=== PATIENT | female | born 1965 | race Caucasian/White ===

== ENCOUNTER 2017-04-19 03:34 | Inpatient (IN) | payer MEDICARE ==
[2017-04-19 04:58] LABS: Urine Drugs of Abuse Note Disclamer
[2017-04-19 05:03] LABS: Alanine Aminotransferase 171 units/L (7-56); Albumin 4.1 g/dL (3.9-5); Alkaline Phosphatase 102 units/L (35-129); Anion Gap 17 mmol/L; Bilirubin,Total < 0.20 mg/dL (0.1-1.2); Carbon Dioxide 27 mmol/L (22-30); Chloride 96.8 mmol/L (98-107); Potassium 5.8 mmol/L (3.6-5.0); Sodium 135 mmol/L (137-145)
[2017-04-19 05:11] LABS: Bacteria,Urine 1+ /HPF (Negative); Bilirubin,Urine NEG (Negative); Blood,Urine SM (Negative); Ketones,Urine NEG (Negative); Leukocyte Esterase,Urine NEG (Negative); Mucus,Urine FEW /HPF; Nitrite,Urine NEG (Negative); Urobilinogen,Urine < 2.0 mg/dL (<2.0)
[2017-04-19 05:11] LABS: Glucose 102 mg/dL (65-100)
[2017-04-19 05:50] LABS: Albumin/Globulin Ratio 1.4 %; BUN/Creatinine Ratio 46; Blood Urea Nitrogen 51 mg/dL (7-17); Calcium 8.9 mg/dL (8.4-10.2); Total Protein 6.8 g/dL (6.3-8.2)
[2017-04-19 06:02] LABS: Basophils % (Auto) 0.7 % (0.0-1.8); Eosinophils % (Auto) 0.6 % (0.0-4.3); Hematocrit 39.3 % (30.3-42.9); Hemoglobin 13.4 gm/dl (10.1-14.3); Mean Corpuscular HGB Conc 34 % (30-34); Mean Corpuscular Hemoglobin 35 pg (28-32); Mean Corpuscular Volume 103 fl (79-97); Platelet Count 164 K/mm3 (140-440); Red Blood Count 3.81 M/mm3 (3.65-5.03); Red Cell Distribution Width 11.9 % (13.2-15.2); White Blood Count 9.5 K/mm3 (4.5-11.0)
[2017-04-19] MEDS ORDERED: PROVENTIL IH ONE (06:44)
[2017-04-19] MEDS ORDERED: MAGNESIUM SULFATE 2GM/50ML 2 GM/50 ML BAG IV ONE (06:44)
[2017-04-19] MEDS ORDERED: ATROVENT IH ONE (06:44)
[2017-04-19] MEDS ORDERED: DILANTIN 1,000 MG in NACL 0.9% 250ML 250 ML IV ONE (06:44)
[2017-04-19] MEDS ORDERED: DILAUDID IV ONE (06:46)
[2017-04-19] MEDS ORDERED: ZOFRAN IV ONE (06:47)
[2017-04-19] MEDS ORDERED: CLEOCIN 600 MG/50 mL 600 MG/50 ML BAG IV ONE (06:48)
--- NOTE | 2017-04-19 07:10 | XRay Report ---
FINAL REPORT EXAM: XR CHEST 1V AP HISTORY: sob, wheeze, cp TECHNIQUE: An AP semi-erect view of the chest was obtained. There are no previous studies available for comparison. FINDINGS: The heart is oxwy-xb-gnosdgrfws enlarged. The lungs are not overtly congested. There are no localized infiltrates or effusions. There are EKG leads overlying the chest wall. The skeletal structures do not show any acute changes. There is a pacing device overlying the left chest wall with the lead directed into the left side of the neck. IMPRESSION: Cardiomegaly. No acute process in the chest.
[2017-04-19] MEDS ORDERED: DILAUDID ONE (07:17)
--- NOTE | 2017-04-19 07:58 | Emergency Department Report ---
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 Initially patient was sent for alteration in mental status. Patient is alert to self only. She thinks the year 2004 and think she is at the grocery store. She states she lives alone and has a home nurse that comes to the house does not require 24-hour care. Triage states that EMS received a call from elderly man who is assisting in her care and states that her mental status has been gradually declining. Patient complains of anterior chest pain that is intermittent, sharp, worse with breathing and palpation. Positive shortness of breath associated with wheezing. Positive dry cough. Patient reports subjective fever. Patient also noticed a red discoloration to the distal legs for several days. Severity scale (0 -10): 10 - Related Data Home Medications Medication Instructions Recorded Confirmed Last Taken Morphine TAB 15 mg PO Q12HR 07/26/15 07/26/15 Unknown Ondansetron TAB 4 mg PO Q8HR 07/26/15 07/26/15 Unknown Temazepam 15 mg PO QHS PRN 07/26/15 07/26/15 Unknown Tizanidine HCl 4 mg PO BID 07/26/15 07/26/15 Unknown Apixaban [Eliquis] 5 mg PO BID 09/13/16 10/30/16 Unknown Duloxetine HCl [Cymbalta] 60 mg PO QHS 09/13/16 10/30/16 Unknown LORazepam [Ativan] 2 mg PO TID 09/13/16 10/30/16 Unknown Lisinopril [Zestril TAB] 40 mg PO QDAY 09/13/16 10/30/16 Unknown Morphine [Morphine TAB] 30 mg PO QAM 09/13/16 10/30/16 Unknown Phenytoin [Dilantin] 300 mg PO TID 09/13/16 10/30/16 Unknown cloNIDine 0.3 mg PO TID 09/13/16 10/30/16 Unknown Tizanidine HCl [Zanaflex] 4 mg PO BID 10/30/16 10/30/16 Unknown Previous Rx's Medication Instructions Recorded Last Taken Type Budesonide [Pulmicort Respules] 0.5 mg IH Q12HRT #60 nebu 07/31/13 Unknown Rx ALBUTEROL Inhaler [ProAir HFA 2 puff IH QID PRN #1 pump 08/01/15 Unknown Rx Inhaler] Metoprolol [Lopressor] 25 mg PO BID #60 tablet 08/01/15 Unknown Rx levETIRAcetam [Keppra TAB] 500 mg PO BID #60 tablet 08/01/15 Unknown Rx Pantoprazole [Protonix TAB] 40 mg PO QDAY #30 tablet 09/16/16 Unknown Rx Furosemide [Lasix] 20 mg PO QDAY #30 tablet 11/03/16 Unknown Rx Ipratropium/Albuterol Sulfate 1 ampul IH Q6HRT #60 ampul.neb 11/03/16 Unknown Rx [DUONEB *Not for PRN Use*] Levofloxacin [Levaquin TAB] 750 mg PO DAILY #3 tablet 11/03/16 Unknown Rx Ondansetron [Zofran ODT TAB] 4 mg PO TID #30 tab.rapdis 11/03/16 Unknown Rx oxyCODONE /ACETAMINOPHEN [Percocet 1 tab PO BID #30 tablet 11/03/16 Unknown Rx 5/325 mg] predniSONE [Deltasone] 50 mg PO QDAY #5 tab 11/03/16 Unknown Rx Allergies Allergy/AdvReac Type Severity Reaction Status Date / Time amoxicillin Allergy Rash Verified 07/29/15 12:33 carbamazepine [From Tegretol] Allergy Unknown Verified 04/04/14 14:26 cucumber Allergy Unknown Verified 09/14/16 12:28 divalproex sodium Allergy Unknown Verified 04/04/14 14:26 [From Depakote] levetiracetam [From Keppra] Allergy Unknown Verified 04/04/14 14:26 nitroglycerin Allergy Unknown Verified 07/14/13 22:26 [From Nitro-Bid] NSAIDS (Non-Steroidal Allergy Vomiting Verified 07/14/13 22:27 Anti-Inflamma Penicillins Allergy Swelling Verified 07/14/13 22:26 Sulfa (Sulfonamide Allergy Rash Verified 07/29/15 12:33 Antibiotics) tramadol HCl [From Ultram] Allergy Unknown Verified 04/04/14 14:26 vancomycin Allergy Vomiting Verified 07/14/13 22:26 pickles Allergy Unknown Uncoded 09/14/16 12:27 Heart Score - HEART Score History: Slightly suspicious EKG: Normal Age: 45-65 Risk factors: > 3 risk factors or hx of atherosclerotic disease Troponin: 1-3x normal limit HEART Score: 4 ED Review of Systems ROS: Stated complaint: AMS Other details as noted in HPI Comment: All other systems reviewed and negative Other: Constitutional: No fevers chills Eyes: No eye pain visual changes ENT: No ear pain or throat pain Neck: Denies pain Respiratory:as per hpi Cardiovascular: Denies c palpitations, syncope GI: Denies abdominal pain, nausea, vomiting, diarrhea : Denies dysuria Musculoskeletal: Denies back pain, joint swelling Skin: as per hpi Neurologic: Denies headache, numbness, weakness Psychiatric: Denies suicidal ideation, hallucinations ED Past Medical Hx - Past Medical History Hx Hypertension: Yes Hx CVA: Yes (5 strokes,left-side,no assistance For ADL's) Hx Congestive Heart Failure: Yes Hx Diabetes: Yes Hx Deep Vein Thrombosis: Yes Hx Seizures: Yes Hx Asthma: Yes Hx COPD: Yes Additional medical history: Morbid Obesity,chronic pain, intubated,seizure disruptive device - Surgical History Hx Coronary Stent: Yes Hx Pacemaker: No Hx Internal Defibrillator: No Additional Surgical History: kidney, eye, tonsilectomy, seizure implant - Social History Smoking Status: Never Smoker Substance Use Type: None - Medications Home Medications: Home Medications Medication Instructions Recorded Confirmed Last Taken Type Budesonide [Pulmicort Respules] 0.5 mg IH Q12HRT #60 nebu 07/31/13 10/30/16 Unknown Rx Morphine TAB 15 mg PO Q12HR 07/26/15 07/26/15 Unknown History Ondansetron TAB 4 mg PO Q8HR 07/26/15 07/26/15 Unknown History Temazepam 15 mg PO QHS PRN 07/26/15 07/26/15 Unknown History Tizanidine HCl 4 mg PO BID 07/26/15 07/26/15 Unknown History ALBUTEROL Inhaler [ProAir HFA 2 puff IH QID PRN #1 pump 08/01/15 Unknown Rx Inhaler] Metoprolol [Lopressor] 25 mg PO BID #60 tablet 08/01/15 Unknown Rx levETIRAcetam [Keppra TAB] 500 mg PO BID #60 tablet 08/01/15 Unknown Rx Apixaban [Eliquis] 5 mg PO BID 09/13/16 10/30/16 Unknown History Duloxetine HCl [Cymbalta] 60 mg PO QHS 09/13/16 10/30/16 Unknown History LORazepam [Ativan] 2 mg PO TID 09/13/16 10/30/16 Unknown History Lisinopril [Zestril TAB] 40 mg PO QDAY 09/13/16 10/30/16 Unknown History Morphine [Morphine TAB] 30 mg PO QAM 09/13/16 10/30/16 Unknown History Phenytoin [Dilantin] 300 mg PO TID 09/13/16 10/30/16 Unknown History cloNIDine 0.3 mg PO TID 09/13/16 10/30/16 Unknown History Pantoprazole [Protonix TAB] 40 mg PO QDAY #30 tablet 09/16/16 10/30/16 Unknown Rx Tizanidine HCl [Zanaflex] 4 mg PO BID 10/30/16 10/30/16 Unknown History Furosemide [Lasix] 20 mg PO QDAY #30 tablet 11/03/16 Unknown Rx Ipratropium/Albuterol Sulfate 1 ampul IH Q6HRT #60 ampul.neb 11/03/16 Unknown Rx [DUONEB *Not for PRN Use*] Levofloxacin [Levaquin TAB] 750 mg PO DAILY #3 tablet 11/03/16 Unknown Rx Ondansetron [Zofran ODT TAB] 4 mg PO TID #30 tab.rapdis 11/03/16 Unknown Rx oxyCODONE /ACETAMINOPHEN [Percocet 1 tab PO BID #30 tablet 11/03/16 Unknown Rx 5/325 mg] predniSONE [Deltasone] 50 mg PO QDAY #5 tab 11/03/16 Unknown Rx ED Physical Exam - General Limitations: Altered Mental Status, Physical Limitation - Other Other exam information: General: No limitations, patient is alert in no acute distress Head exam: Atraumatic, normocephalic Eyes exam: Normal appearance ENT: Moist mucous membrane, normal oropharynx Neck exam: Normal inspection, full range of motion, no meningismus nontender Respiratory exam: Bilateral expiratory wheezing, sternal and anterior chest wall reproducible tenderness Cardiovascular: Normal rate and rhythm Abdomen: Soft, nondistended, and nontender, with normal bowel sounds, no rebound, or guarding Extremity: Erythema to bilateral distal legs with warm. Mild tenderness. 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 and foot dorsiflexion with mild increased weakness on the right regarding antigravity movement off the bed which is unchanged per patient Psychiatric: normal affect, normal mood Skin: Warm, dry, intact ED Course Vital Signs 04/19/17 04/19/17 04/19/17 03:38 03:40 03:45 Temperature 99.2 F Pulse Rate 94 H 91 H 87 Pulse Rate [ Bilateral Upper Lobe] Respiratory 19 20 Rate Respiratory Rate [Bilateral Upper Lobe] Blood Pressure 186/69 Blood Pressure [Right] O2 Sat by Pulse 84 91 Oximetry 04/19/17 04/19/17 04/19/17 03:50 04:00 04:24 Temperature Pulse Rate 91 H 93 H 86 Pulse Rate [ Bilateral Upper Lobe] Respiratory 17 14 15 Rate Respiratory Rate [Bilateral Upper Lobe] Blood Pressure 170/92 170/92 Blood Pressure [Right] O2 Sat by Pulse 91 90 93 Oximetry 04/19/17 04/19/17 04/19/17 04:30 04:35 04:37 Temperature 99.2 F Pulse Rate 82 87 Pulse Rate [ Bilateral Upper Lobe] Respiratory 16 20 18 Rate Respiratory Rate [Bilateral Upper Lobe] Blood Pressure 179/75 Blood Pressure 170/92 [Right] O2 Sat by Pulse 93 91 93 Oximetry 04/19/17 04/19/17 04/19/17 04:40 04:50 05:00 Temperature Pulse Rate 86 87 84 Pulse Rate [ Bilateral Upper Lobe] Respiratory 16 17 16 Rate Respiratory Rate [Bilateral Upper Lobe] Blood Pressure 192/102 203/91 203/91 Blood Pressure [Right] O2 Sat by Pulse 90 92 94 Oximetry 04/19/17 04/19/17 04/19/17 05:10 05:15 05:20 Temperature Pulse Rate 85 86 85 Pulse Rate [ Bilateral Upper Lobe] Respiratory 17 15 14 Rate Respiratory Rate [Bilateral Upper Lobe] Blood Pressure 159/90 165/91 165/91 Blood Pressure [Right] O2 Sat by Pulse 95 94 93 Oximetry 04/19/17 04/19/17 04/19/17 05:26 05:30 05:35 Temperature Pulse Rate 86 86 86 Pulse Rate [ Bilateral Upper Lobe] Respiratory 14 20 14 Rate Respiratory Rate [Bilateral Upper Lobe] Blood Pressure 165/91 165/91 Blood Pressure [Right] O2 Sat by Pulse 94 92 92 Oximetry 04/19/17 04/19/17 04/19/17 05:40 05:46 05:50 Temperature Pulse Rate 85 87 86 Pulse Rate [ Bilateral Upper Lobe] Respiratory 14 12 17 Rate Respiratory Rate [Bilateral Upper Lobe] Blood Pressure 185/81 229/90 Blood Pressure [Right] O2 Sat by Pulse 95 94 92 Oximetry 04/19/17 04/19/17 04/19/17 05:56 06:00 06:02 Temperature Pulse Rate 83 86 85 Pulse Rate [ Bilateral Upper Lobe] Respiratory 17 17 17 Rate Respiratory Rate [Bilateral Upper Lobe] Blood Pressure 229/90 119/72 131/74 Blood Pressure [Right] O2 Sat by Pulse 92 92 93 Oximetry 04/19/17 04/19/17 04/19/17 06:04 06:06 06:08 Temperature Pulse Rate 84 85 86 Pulse Rate [ Bilateral Upper Lobe] Respiratory 13 18 17 Rate Respiratory Rate [Bilateral Upper Lobe] Blood Pressure 131/74 131/74 131/74 Blood Pressure [Right] O2 Sat by Pulse 95 93 93 Oximetry 04/19/17 04/19/17 04/19/17 06:10 06:12 06:14 Temperature Pulse Rate 85 86 84 Pulse Rate [ Bilateral Upper Lobe] Respiratory 11 L 16 12 Rate Respiratory Rate [Bilateral Upper Lobe] Blood Pressure 131/74 131/74 131/74 Blood Pressure [Right] O2 Sat by Pulse 95 94 94 Oximetry 04/19/17 04/19/17 04/19/17 06:16 06:18 06:20 Temperature Pulse Rate 85 85 82 Pulse Rate [ Bilateral Upper Lobe] Respiratory 13 21 17 Rate Respiratory Rate [Bilateral Upper Lobe] Blood Pressure 131/74 131/74 131/74 Blood Pressure [Right] O2 Sat by Pulse 94 95 93 Oximetry 04/19/17 04/19/17 04/19/17 06:22 06:24 06:26 Temperature Pulse Rate 83 85 83 Pulse Rate [ Bilateral Upper Lobe] Respiratory 16 12 15 Rate Respiratory Rate [Bilateral Upper Lobe] Blood Pressure 148/73 148/73 148/73 Blood Pressure [Right] O2 Sat by Pulse 94 93 93 Oximetry 04/19/17 04/19/17 07:13 07:25 Temperature Pulse Rate Pulse Rate [ 85 88 Bilateral Upper Lobe] Respiratory Rate Respiratory 18 18 Rate [Bilateral Upper Lobe] Blood Pressure Blood Pressure [Right] O2 Sat by Pulse Oximetry - Reevaluation(s) Reevaluation #1: 04/19/17 08:02 Meds in the ED: Albuterol 10, Ativan 1, Solu-Medrol, magnesium, Dilaudid and Zofran for pain and nausea, clindamycin for cellulitis and Dilantin for subtherapeutic level - ABG Interpretation Ph: 7.34 PCO2: 58 PO2: 65 Bicarbonate: 31 Additional Comments: Compensated respiratory acidosis and hypoxia SUMAN score - Suman Score Age > 65: (0) No Aspirin use within the Past 7 Days: (1) Yes 3 or more CAD Risk Factors: (1) Yes 2 or more Angina events in past 24 hrs: (1) Yes Known CAD with more than 50% Stenosis: (0) No Elevated Cardiac Markers: (1) Yes ST Deviation Greater than 0.5mm: (0) No SUMAN Score: 4 ED Medical Decision Making - Lab Data Result diagrams: 04/19/17 05:27 04/19/17 07:25 Lab Results 04/19/17 04/19/17 04/19/17 Range/Units 04:35 04:37 04:37 WBC (4.5-11.0) K/mm3 RBC (3.65-5.03) M/mm3 Hgb (10.1-14.3) gm/dl Hct (30.3-42.9) % MCV (79-97) fl MCH (28-32) pg MCHC (30-34) % RDW (13.2-15.2) % Plt Count (140-440) K/mm3 Lymph % (Auto) (13.4-35.0) % [place] % (Auto) (0.0-7.3) % Eos % (Auto) (0.0-4.3) % Baso % (Auto) (0.0-1.8) % Lymph # (1.2-5.4) K/mm3 [place] # (0.0-0.8) K/mm3 Eos # (0.0-0.4) K/mm3 Baso # (0.0-0.1) K/mm3 Seg Neutrophils % (40.0-70.0) % Seg Neutrophils # (1.8-7.7) K/mm3 PT (12.2-14.9) Sec. INR (0.87-1.13) APTT (24.2-36.6) Sec. POC ABG pH (7.35-7.45) POC ABG pCO2 (35-45) POC ABG pO2 (80-105) POC ABG HCO3 POC ABG Total CO2 POC ABG O2 Sat POC ABG Base Excess FiO2 % Sodium (137-145) mmol/L Potassium (3.6-5.0) mmol/L Chloride (98-107) mmol/L Carbon Dioxide (22-30) mmol/L Anion Gap mmol/L BUN (7-17) mg/dL Creatinine (0.7-1.2) mg/dL Estimated GFR ml/min BUN/Creatinine Ratio % Glucose (65-100) mg/dL POC Glucose 93 (70-105) Lactic Acid (0.7-2.0) mmol/L Calcium (8.4-10.2) mg/dL Magnesium (1.7-2.3) mg/dL Total Bilirubin (0.1-1.2) mg/dL AST (5-40) units/L ALT (7-56) units/L Alkaline Phosphatase (35-129) units/L Ammonia (25-60) umol/L Total Creatine Kinase (30-135) units/L CK-MB (CK-2) (0.0-4.0) ng/mL CK-MB (CK-2) Rel Index (0-4) Troponin T (0.00-0.029) ng/mL Total Protein (6.3-8.2) g/dL Albumin (3.9-5) g/dL Albumin/Globulin Ratio % Triglycerides (2-149) mg/dL Cholesterol (50-199) mg/dL LDL Cholesterol Direct HDL Cholesterol (40-59) mg/dL Cholesterol/HDL Ratio % TSH (0.270-4.200) mlU/mL Urine Color Yellow (Yellow) Urine Turbidity Clear (Clear) Urine pH 5.0 (5.0-7.0) Ur Specific [place] 1.020 (1.003-1.030) Urine Protein 100 mg/dl (Negative) mg/dL Urine Glucose (UA) Neg (Negative) mg/dL Urine Ketones Neg (Negative) mg/dL Urine Blood Sm (Negative) Urine Nitrite Neg (Negative) Urine Bilirubin Neg (Negative) Urine Urobilinogen < 2.0 (<2.0) mg/dL Ur Leukocyte Esterase Neg (Negative) Urine WBC (Auto) 2.0 (0.0-6.0) /HPF Urine RBC (Auto) 1.0 (0.0-6.0) /HPF U Epithel Cells (Auto) < 1.0 (0-13.0) /HPF Urine Bacteria (Auto) 1+ (Negative) /HPF Urine Mucus Few /HPF Salicylates (2.8-20.0) mg/dL Urine Opiates Screen Presumptive positive Urine Methadone Screen Presumptive negative Acetaminophen (10.0-30.0) ug/mL Ur Barbiturates Screen Presumptive negative Phenytoin (10.0-20.0) ug/mL Ur Phencyclidine Scrn Presumptive negative Ur Amphetamines Screen Presumptive negative U Benzodiazepines Scrn Presumptive negative Urine Cocaine Screen Presumptive negative U Marijuana (THC) Screen Presumptive negative Drugs of Abuse Note Disclamer Plasma/Serum Alcohol (0-0.07) gm% 04/19/17 04/19/17 04/19/17 Range/Units 04:41 05:27 05:27 WBC 9.5 (4.5-11.0) K/mm3 RBC 3.81 (3.65-5.03) M/mm3 Hgb 13.4 (10.1-14.3) gm/dl Hct 39.3 (30.3-42.9) % MCV 103 H (79-97) fl MCH 35 H (28-32) pg MCHC 34 (30-34) % RDW 11.9 L (13.2-15.2) % Plt Count 164 (140-440) K/mm3 Lymph % (Auto) 20.3 (13.4-35.0) % [place] % (Auto) 6.3 (0.0-7.3) % Eos % (Auto) 0.6 (0.0-4.3) % Baso % (Auto) 0.7 (0.0-1.8) % Lymph # 1.9 (1.2-5.4) K/mm3 [place] # 0.6 (0.0-0.8) K/mm3 Eos # 0.1 (0.0-0.4) K/mm3 Baso # 0.1 (0.0-0.1) K/mm3 Seg Neutrophils % 72.1 H (40.0-70.0) % Seg Neutrophils # 6.8 (1.8-7.7) K/mm3 PT (12.2-14.9) Sec. INR (0.87-1.13) APTT (24.2-36.6) Sec. POC ABG pH (7.35-7.45) POC ABG pCO2 (35-45) POC ABG pO2 (80-105) POC ABG HCO3 POC ABG Total CO2 POC ABG O2 Sat POC ABG Base Excess FiO2 % Sodium 135 L (137-145) mmol/L Potassium 5.8 H (3.6-5.0) mmol/L Chloride 96.8 L (98-107) mmol/L Carbon Dioxide 27 (22-30) mmol/L Anion Gap 17 mmol/L BUN 51 H (7-17) mg/dL Creatinine < 0.2 L (0.7-1.2) mg/dL Estimated GFR > 60 ml/min BUN/Creatinine Ratio 46 % Glucose 102 H (65-100) mg/dL POC Glucose (70-105) Lactic Acid 0.90 (0.7-2.0) mmol/L Calcium 8.9 (8.4-10.2) mg/dL Magnesium 2.00 (1.7-2.3) mg/dL Total Bilirubin < 0.20 (0.1-1.2) mg/dL AST 262 H (5-40) units/L ALT 171 H (7-56) units/L Alkaline Phosphatase 102 (35-129) units/L Ammonia (25-60) umol/L Total Creatine Kinase (30-135) units/L CK-MB (CK-2) (0.0-4.0) ng/mL CK-MB (CK-2) Rel Index (0-4) Troponin T (0.00-0.029) ng/mL Total Protein 6.8 (6.3-8.2) g/dL Albumin 4.1 (3.9-5) g/dL Albumin/Globulin Ratio 1.4 % Triglycerides (2-149) mg/dL Cholesterol (50-199) mg/dL LDL Cholesterol Direct HDL Cholesterol (40-59) mg/dL Cholesterol/HDL Ratio % TSH (0.270-4.200) mlU/mL Urine Color (Yellow) Urine Turbidity (Clear) Urine pH (5.0-7.0) Ur Specific [place] (1.003-1.030) Urine Protein (Negative) mg/dL Urine Glucose (UA) (Negative) mg/dL Urine Ketones (Negative) mg/dL Urine Blood (Negative) Urine Nitrite (Negative) Urine Bilirubin (Negative) Urine Urobilinogen (<2.0) mg/dL Ur Leukocyte Esterase (Negative) Urine WBC (Auto) (0.0-6.0) /HPF Urine RBC (Auto) (0.0-6.0) /HPF U Epithel Cells (Auto) (0-13.0) /HPF Urine Bacteria (Auto) (Negative) /HPF Urine Mucus /HPF Salicylates (2.8-20.0) mg/dL Urine Opiates Screen Urine Methadone Screen Acetaminophen (10.0-30.0) ug/mL Ur Barbiturates Screen Phenytoin (10.0-20.0) ug/mL Ur Phencyclidine Scrn Ur Amphetamines Screen U Benzodiazepines Scrn Urine Cocaine Screen U Marijuana (THC) Screen Drugs of Abuse Note Plasma/Serum Alcohol (0-0.07) gm% 04/19/17 04/19/17 04/19/17 Range/Units 05:27 05:27 05:27 WBC (4.5-11.0) K/mm3 RBC (3.65-5.03) M/mm3 Hgb (10.1-14.3) gm/dl Hct (30.3-42.9) % MCV (79-97) fl MCH (28-32) pg MCHC (30-34) % RDW (13.2-15.2) % Plt Count (140-440) K/mm3 Lymph % (Auto) (13.4-35.0) % [place] % (Auto) (0.0-7.3) % Eos % (Auto) (0.0-4.3) % Baso % (Auto) (0.0-1.8) % Lymph # (1.2-5.4) K/mm3 [place] # (0.0-0.8) K/mm3 Eos # (0.0-0.4) K/mm3 Baso # (0.0-0.1) K/mm3 Seg Neutrophils % (40.0-70.0) % Seg Neutrophils # (1.8-7.7) K/mm3 PT (12.2-14.9) Sec. INR (0.87-1.13) APTT (24.2-36.6) Sec. POC ABG pH (7.35-7.45) POC ABG pCO2 (35-45) POC ABG pO2 (80-105) POC ABG HCO3 POC ABG Total CO2 POC ABG O2 Sat POC ABG Base Excess FiO2 % Sodium (137-145) mmol/L Potassium (3.6-5.0) mmol/L Chloride (98-107) mmol/L Carbon Dioxide (22-30) mmol/L Anion Gap mmol/L BUN (7-17) mg/dL Creatinine (0.7-1.2) mg/dL Estimated GFR ml/min BUN/Creatinine Ratio % Glucose (65-100) mg/dL POC Glucose (70-105) Lactic Acid (0.7-2.0) mmol/L Calcium (8.4-10.2) mg/dL Magnesium (1.7-2.3) mg/dL Total Bilirubin (0.1-1.2) mg/dL AST (5-40) units/L ALT (7-56) units/L Alkaline Phosphatase (35-129) units/L Ammonia (25-60) umol/L Total Creatine Kinase (30-135) units/L CK-MB (CK-2) (0.0-4.0) ng/mL CK-MB (CK-2) Rel Index (0-4) Troponin T (0.00-0.029) ng/mL Total Protein (6.3-8.2) g/dL Albumin (3.9-5) g/dL Albumin/Globulin Ratio % Triglycerides (2-149) mg/dL Cholesterol (50-199) mg/dL LDL Cholesterol Direct HDL Cholesterol (40-59) mg/dL Cholesterol/HDL Ratio % TSH 0.733 (0.270-4.200) mlU/mL Urine Color (Yellow) Urine Turbidity (Clear) Urine pH (5.0-7.0) Ur Specific [place] (1.003-1.030) Urine Protein (Negative) mg/dL Urine Glucose (UA) (Negative) mg/dL Urine Ketones (Negative) mg/dL Urine Blood (Negative) Urine Nitrite (Negative) Urine Bilirubin (Negative) Urine Urobilinogen (<2.0) mg/dL Ur Leukocyte Esterase (Negative) Urine WBC (Auto) (0.0-6.0) /HPF Urine RBC (Auto) (0.0-6.0) /HPF U Epithel Cells (Auto) (0-13.0) /HPF Urine Bacteria (Auto) (Negative) /HPF Urine Mucus /HPF Salicylates < 0.3 L (2.8-20.0) mg/dL Urine Opiates Screen Urine Methadone Screen Acetaminophen < 15.0 (10.0-30.0) ug/mL Ur Barbiturates Screen Phenytoin (10.0-20.0) ug/mL Ur Phencyclidine Scrn Ur Amphetamines Screen U Benzodiazepines Scrn Urine Cocaine Screen U Marijuana (THC) Screen Drugs of Abuse Note Plasma/Serum Alcohol (0-0.07) gm% 04/19/17 04/19/17 04/19/17 Range/Units 05:27 05:27 07:01 WBC (4.5-11.0) K/mm3 RBC (3.65-5.03) M/mm3 Hgb (10.1-14.3) gm/dl Hct (30.3-42.9) % MCV (79-97) fl MCH (28-32) pg MCHC (30-34) % RDW (13.2-15.2) % Plt Count (140-440) K/mm3 Lymph % (Auto) (13.4-35.0) % [place] % (Auto) (0.0-7.3) % Eos % (Auto) (0.0-4.3) % Baso % (Auto) (0.0-1.8) % Lymph # (1.2-5.4) K/mm3 [place] # (0.0-0.8) K/mm3 Eos # (0.0-0.4) K/mm3 Baso # (0.0-0.1) K/mm3 Seg Neutrophils % (40.0-70.0) % Seg Neutrophils # (1.8-7.7) K/mm3 PT (12.2-14.9) Sec. INR (0.87-1.13) APTT (24.2-36.6) Sec. POC ABG pH (7.35-7.45) POC ABG pCO2 (35-45) POC ABG pO2 (80-105) POC ABG HCO3 POC ABG Total CO2 POC ABG O2 Sat POC ABG Base Excess FiO2 % Sodium (137-145) mmol/L Potassium (3.6-5.0) mmol/L Chloride (98-107) mmol/L Carbon Dioxide (22-30) mmol/L Anion Gap mmol/L BUN (7-17) mg/dL Creatinine (0.7-1.2) mg/dL Estimated GFR ml/min BUN/Creatinine Ratio % Glucose (65-100) mg/dL POC Glucose (70-105) Lactic Acid 0.90 (0.7-2.0) mmol/L Calcium (8.4-10.2) mg/dL Magnesium (1.7-2.3) mg/dL Total Bilirubin (0.1-1.2) mg/dL AST (5-40) units/L ALT (7-56) units/L Alkaline Phosphatase (35-129) units/L Ammonia (25-60) umol/L Total Creatine Kinase (30-135) units/L CK-MB (CK-2) (0.0-4.0) ng/mL CK-MB (CK-2) Rel Index (0-4) Troponin T (0.00-0.029) ng/mL Total Protein (6.3-8.2) g/dL Albumin (3.9-5) g/dL Albumin/Globulin Ratio % Triglycerides (2-149) mg/dL Cholesterol (50-199) mg/dL LDL Cholesterol Direct HDL Cholesterol (40-59) mg/dL Cholesterol/HDL Ratio % TSH (0.270-4.200) mlU/mL Urine Color (Yellow) Urine Turbidity (Clear) Urine pH (5.0-7.0) Ur Specific [place] (1.003-1.030) Urine Protein (Negative) mg/dL Urine Glucose (UA) (Negative) mg/dL Urine Ketones (Negative) mg/dL Urine Blood (Negative) Urine Nitrite (Negative) Urine Bilirubin (Negative) Urine Urobilinogen (<2.0) mg/dL Ur Leukocyte Esterase (Negative) Urine WBC (Auto) (0.0-6.0) /HPF Urine RBC (Auto) (0.0-6.0) /HPF U Epithel Cells (Auto) (0-13.0) /HPF Urine Bacteria (Auto) (Negative) /HPF Urine Mucus /HPF Salicylates (2.8-20.0) mg/dL Urine Opiates Screen Urine Methadone Screen Acetaminophen (10.0-30.0) ug/mL Ur Barbiturates Screen Phenytoin 1.6 L (10.0-20.0) ug/mL Ur Phencyclidine Scrn Ur Amphetamines Screen U Benzodiazepines Scrn Urine Cocaine Screen U Marijuana (THC) Screen Drugs of Abuse Note Plasma/Serum Alcohol < 0.01 (0-0.07) gm% 04/19/17 04/19/17 04/19/17 Range/Units 07:01 07:01 07:25 WBC (4.5-11.0) K/mm3 RBC (3.65-5.03) M/mm3 Hgb (10.1-14.3) gm/dl Hct (30.3-42.9) % MCV (79-97) fl MCH (28-32) pg MCHC (30-34) % RDW (13.2-15.2) % Plt Count (140-440) K/mm3 Lymph % (Auto) (13.4-35.0) % [place] % (Auto) (0.0-7.3) % Eos % (Auto) (0.0-4.3) % Baso % (Auto) (0.0-1.8) % Lymph # (1.2-5.4) K/mm3 [place] # (0.0-0.8) K/mm3 Eos # (0.0-0.4) K/mm3 Baso # (0.0-0.1) K/mm3 Seg Neutrophils % (40.0-70.0) % Seg Neutrophils # (1.8-7.7) K/mm3 PT (12.2-14.9) Sec. INR (0.87-1.13) APTT (24.2-36.6) Sec. POC ABG pH (7.35-7.45) POC ABG pCO2 (35-45) POC ABG pO2 (80-105) POC ABG HCO3 POC ABG Total CO2 POC ABG O2 Sat POC ABG Base Excess FiO2 % Sodium (137-145) mmol/L Potassium 5.5 H (3.6-5.0) mmol/L Chloride (98-107) mmol/L Carbon Dioxide (22-30) mmol/L Anion Gap mmol/L BUN (7-17) mg/dL Creatinine (0.7-1.2) mg/dL Estimated GFR ml/min BUN/Creatinine Ratio % Glucose (65-100) mg/dL POC Glucose (70-105) Lactic Acid (0.7-2.0) mmol/L Calcium (8.4-10.2) mg/dL Magnesium (1.7-2.3) mg/dL Total Bilirubin (0.1-1.2) mg/dL AST (5-40) units/L ALT (7-56) units/L Alkaline Phosphatase (35-129) units/L Ammonia 51.0 (25-60) umol/L Total Creatine Kinase 117 (30-135) units/L CK-MB (CK-2) 4.5 H (0.0-4.0) ng/mL CK-MB (CK-2) Rel Index 3.8 (0-4) Troponin T 0.030 H (0.00-0.029) ng/mL Total Protein (6.3-8.2) g/dL Albumin (3.9-5) g/dL Albumin/Globulin Ratio % Triglycerides 402 H (2-149) mg/dL Cholesterol 183 (50-199) mg/dL LDL Cholesterol Direct TNR HDL Cholesterol 39 L (40-59) mg/dL Cholesterol/HDL Ratio 4.69 % TSH (0.270-4.200) mlU/mL Urine Color (Yellow) Urine Turbidity (Clear) Urine pH (5.0-7.0) Ur Specific [place] (1.003-1.030) Urine Protein (Negative) mg/dL Urine Glucose (UA) (Negative) mg/dL Urine Ketones (Negative) mg/dL Urine Blood (Negative) Urine Nitrite (Negative) Urine Bilirubin (Negative) Urine Urobilinogen (<2.0) mg/dL Ur Leukocyte Esterase (Negative) Urine WBC (Auto) (0.0-6.0) /HPF Urine RBC (Auto) (0.0-6.0) /HPF U Epithel Cells (Auto) (0-13.0) /HPF Urine Bacteria (Auto) (Negative) /HPF Urine Mucus /HPF Salicylates (2.8-20.0) mg/dL Urine Opiates Screen Urine Methadone Screen Acetaminophen (10.0-30.0) ug/mL Ur Barbiturates Screen Phenytoin (10.0-20.0) ug/mL Ur Phencyclidine Scrn Ur Amphetamines Screen U Benzodiazepines Scrn Urine Cocaine Screen U Marijuana (THC) Screen Drugs of Abuse Note Plasma/Serum Alcohol (0-0.07) gm% 04/19/17 04/19/17 Range/Units 07:38 08:26 WBC (4.5-11.0) K/mm3 RBC (3.65-5.03) M/mm3 Hgb (10.1-14.3) gm/dl Hct (30.3-42.9) % MCV (79-97) fl MCH (28-32) pg MCHC (30-34) % RDW (13.2-15.2) % Plt Count (140-440) K/mm3 Lymph % (Auto) (13.4-35.0) % [place] % (Auto) (0.0-7.3) % Eos % (Auto) (0.0-4.3) % Baso % (Auto) (0.0-1.8) % Lymph # (1.2-5.4) K/mm3 [place] # (0.0-0.8) K/mm3 Eos # (0.0-0.4) K/mm3 Baso # (0.0-0.1) K/mm3 Seg Neutrophils % (40.0-70.0) % Seg Neutrophils # (1.8-7.7) K/mm3 PT 15.1 H (12.2-14.9) Sec. INR 1.13 (0.87-1.13) APTT 26.8 (24.2-36.6) Sec. POC ABG pH 7.340 L (7.35-7.45) POC ABG pCO2 58.5 H (35-45) POC ABG pO2 65 L (80-105) POC ABG HCO3 31.6 POC ABG Total CO2 33 POC ABG O2 Sat 90 POC ABG Base Excess 6 FiO2 28 % Sodium (137-145) mmol/L Potassium (3.6-5.0) mmol/L Chloride (98-107) mmol/L Carbon Dioxide (22-30) mmol/L Anion Gap mmol/L BUN (7-17) mg/dL Creatinine (0.7-1.2) mg/dL Estimated GFR ml/min BUN/Creatinine Ratio % Glucose (65-100) mg/dL POC Glucose (70-105) Lactic Acid (0.7-2.0) mmol/L Calcium (8.4-10.2) mg/dL Magnesium (1.7-2.3) mg/dL Total Bilirubin (0.1-1.2) mg/dL AST (5-40) units/L ALT (7-56) units/L Alkaline Phosphatase (35-129) units/L Ammonia (25-60) umol/L Total Creatine Kinase (30-135) units/L CK-MB (CK-2) (0.0-4.0) ng/mL CK-MB (CK-2) Rel Index (0-4) Troponin T (0.00-0.029) ng/mL Total Protein (6.3-8.2) g/dL Albumin (3.9-5) g/dL Albumin/Globulin Ratio % Triglycerides (2-149) mg/dL Cholesterol (50-199) mg/dL LDL Cholesterol Direct HDL Cholesterol (40-59) mg/dL Cholesterol/HDL Ratio % TSH (0.270-4.200) mlU/mL Urine Color (Yellow) Urine Turbidity (Clear) Urine pH (5.0-7.0) Ur Specific [place] (1.003-1.030) Urine Protein (Negative) mg/dL Urine Glucose (UA) (Negative) mg/dL Urine Ketones (Negative) mg/dL Urine Blood (Negative) Urine Nitrite (Negative) Urine Bilirubin (Negative) Urine Urobilinogen (<2.0) mg/dL Ur Leukocyte Esterase (Negative) Urine WBC (Auto) (0.0-6.0) /HPF Urine RBC (Auto) (0.0-6.0) /HPF U Epithel Cells (Auto) (0-13.0) /HPF Urine Bacteria (Auto) (Negative) /HPF Urine Mucus /HPF Salicylates (2.8-20.0) mg/dL Urine Opiates Screen Urine Methadone Screen Acetaminophen (10.0-30.0) ug/mL Ur Barbiturates Screen Phenytoin (10.0-20.0) ug/mL Ur Phencyclidine Scrn Ur Amphetamines Screen U Benzodiazepines Scrn Urine Cocaine Screen U Marijuana (THC) Screen Drugs of Abuse Note Plasma/Serum Alcohol (0-0.07) gm% - EKG Data -: EKG Interpreted by Me (artifact, sinus underlying rhythm suspect) EKG shows normal: sinus rhythm, axis (-5), QRS complexes (95), ST-T waves (no stemi/t inv) Rate: normal (87) - EKG Data When compared to previous EKG there are: no significant change - Radiology Data Radiology results: report reviewed (read by radiologist: cxr: naf cmg) - Medical Decision Making Other differential cellulitis, venous stasis dermatitis Plans admit patient to hospital for chest pain and COPD exacerbation. repeat K 5.5 (albuterol only hyperkalemic med treatment initiated) - Differential Diagnosis mi, costochondritis, unstable angina, PE, CHF, pneumonia, bronchitis, cellu Critical Care Time: No Critical care attestation.: If time is entered above; I have spent that time in minutes in the direct care of this critically ill patient, excluding procedure time. ED Disposition Clinical Impression: COPD exacerbation, Chest pain, Elevated troponin, Hyperkalemia, assisted current use of anticoagulant, Cellulitis, leg, Elevated LFTs Disposition: OP ADMIT IP TO THIS HOSP Is pt being admited?: Yes Condition: Stable Time of Disposition: 08:56 (Hospitalist/[place])
[2017-04-19 08:02] LABS: INR 1.13 (0.87-1.13)
[2017-04-19 08:03] LABS: Partial Thromboplastin Time 26.8 Sec. (24.2-36.6)
[2017-04-19 08:05] LABS: Creatine Kinase MB 4.5 ng/mL (0.0-4.0)
[2017-04-19 08:06] LABS: Potassium 5.5 mmol/L (3.6-5.0)
[2017-04-19 08:15] LABS: Cholesterol 183 mg/dL (50-199); HDL Cholesterol 39 mg/dL (40-59); LDL Cholesterol,Direct TNR mg/dL (50-130); Triglycerides 402 mg/dL (2-149)
[2017-04-19 08:27] LABS: ISTAT Base Excess 6; ISTAT HCO3 31.6; ISTAT PCO2 58.5 (35-45); ISTAT PO2 65 (80-105); ISTAT SO2 90; ISTAT TCO2 33
--- NOTE | 2017-04-19 09:14 | History and Physical Report ---
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 Patient alert to self; therefore unable to provide detail history. Patient complains difficulty of breathing this morning; she told me that her roommate called 911 and brought her to the Emergency Department. Patient also noticed a red discoloration to the distal legs for several days with pain. She is on oxygen at home. Patient denies she has had no fevers, chills, or night sweats. No hx of recurrent pneumonia. He has no sick contact, TB exposure. Patient denies chest pain Past History Past Medical History: CAD ( with stent), COPD ( O2 dependence), diabetes, heart failure, hypertension, seizures, other Past Surgical History: No surgical history Social history: denies: smoking, alcohol abuse, prescription drug abuse Family history: denies: hypertension Medications and Allergies Allergies Allergy/AdvReac Type Severity Reaction Status Date / Time amoxicillin Allergy Rash Verified 07/29/15 12:33 carbamazepine [From Tegretol] Allergy Unknown Verified 04/04/14 14:26 cucumber Allergy Unknown Verified 09/14/16 12:28 divalproex sodium Allergy Unknown Verified 04/04/14 14:26 [From Depakote] levetiracetam [From Keppra] Allergy Unknown Verified 04/04/14 14:26 nitroglycerin Allergy Unknown Verified 07/14/13 22:26 [From Nitro-Bid] NSAIDS (Non-Steroidal Allergy Vomiting Verified 07/14/13 22:27 Anti-Inflamma Penicillins Allergy Swelling Verified 07/14/13 22:26 Sulfa (Sulfonamide Allergy Rash Verified 07/29/15 12:33 Antibiotics) tramadol HCl [From Ultram] Allergy Unknown Verified 04/04/14 14:26 vancomycin Allergy Vomiting Verified 07/14/13 22:26 pickles Allergy Unknown Uncoded 09/14/16 12:27 Home Medications Medication Instructions Recorded Confirmed Last Taken Type Apixaban [Eliquis] 5 mg PO BID 09/13/16 04/19/17 Unknown History Duloxetine HCl [Cymbalta] 60 mg PO QHS 09/13/16 04/19/17 Unknown History Ondansetron [Zofran ODT TAB] 4 mg PO TID #30 tab.rapdis 11/03/16 04/19/17 Unknown Rx Clonidine HCl [Catapres] 0.3 mg PO TID 04/19/17 04/19/17 Unknown History LORazepam [Ativan] 2 mg PO QID PRN 04/19/17 04/19/17 Unknown History Lisinopril [Zestril] 40 mg PO QDAY 04/19/17 04/19/17 Unknown History Mirtazapine [Remeron] 30 mg PO DAILY 04/19/17 04/19/17 Unknown History Morphine Sulfate [Morphabond ER] 15 mg PO Q12H 04/19/17 04/19/17 Unknown History Oxycodone HCl/Acetaminophen 1 each PO BID PRN 04/19/17 04/19/17 Unknown History [Percocet 10/325 mg] Phenytoin Sodium Extended 100 mg PO TID 04/19/17 04/19/17 Unknown History [Dilantin] Review of Systems Constitutional: no weight loss, no weight gain, no fever Ears, nose, mouth and throat: no tinnitis, no decreased hearing, no nose pain, no nasal congestion Cardiovascular: lightheadedness, shortness of breath, dyspnea on exertion, no orthopnea Respiratory: shortness of breath, dyspnea on exertion Gastrointestinal: no nausea, no vomiting Genitourinary Female: no menorrhagia, no dysuria, no urinary frequency, no urgency Rectal: no incontinence, no bleeding Musculoskeletal: no shooting arm pain, no arm numbness/tingling, no low back pain Integumentary: no rash, no pruritis, no redness Neurological: no transient paralysis, no paralysis, no weakness, no parathesias Psychiatric: no change in sleep habits, no sleep disturbances, no insomnia Endocrine: no cold intolerance, no heat intolerance, no polyphagia, no excessive thirst Hematologic/Lymphatic: no easy bruising, no easy bleeding Allergic/Immunologic: no urticaria, no allergic rhinitis Exam - Constitutional Vitals: Temp Pulse Resp BP Pulse Ox 99.2 F 88 18 148/73 93 04/19/17 04:35 04/19/17 07:25 04/19/17 07:25 04/19/17 06:26 04/19/17 06:26 General appearance: Present: no acute distress - EENT Eyes: Present: PERRL ENT: hearing intact - Neck Neck: Present: supple - Respiratory Respiratory effort: normal Respiratory: bilateral: wheezing - Cardiovascular Rhythm: regular Heart Sounds: Present: S1 & S2 - Extremities Extremities: no ischemia Extremity abnormal: other (LE erythema) - Abdominal General gastrointestinal: Present: soft, non-tender - Rectal Rectal Exam: deferred - Integumentary Integumentary: Present: clear (bilateral LE erythema) - Musculoskeletal Musculoskeletal: strength equal bilaterally - Psychiatric Psychiatric: appropriate mood/affect - Neurologic Neurologic: moves all extremities - Allied Health Allied health notes reviewed: nursing Results - Labs CBC & Chem 7: 04/19/17 05:27 04/19/17 07:25 Labs: Laboratory Last Values WBC 9.5 K/mm3 (4.5-11.0) 04/19/17 05:27 RBC 3.81 M/mm3 (3.65-5.03) 04/19/17 05:27 Hgb 13.4 gm/dl (10.1-14.3) 04/19/17 05:27 Hct 39.3 % (30.3-42.9) 04/19/17 05:27 MCV 103 fl (79-97) H 04/19/17 05:27 MCH 35 pg (28-32) H 04/19/17 05:27 MCHC 34 % (30-34) 04/19/17 05:27 RDW 11.9 % (13.2-15.2) L 04/19/17 05:27 Plt Count 164 K/mm3 (140-440) 04/19/17 05:27 Lymph % (Auto) 20.3 % (13.4-35.0) 04/19/17 05:27 [place] % (Auto) 6.3 % (0.0-7.3) 04/19/17 05:27 Eos % (Auto) 0.6 % (0.0-4.3) 04/19/17 05:27 Baso % (Auto) 0.7 % (0.0-1.8) 04/19/17 05:27 Lymph # 1.9 K/mm3 (1.2-5.4) 04/19/17 05:27 [place] # 0.6 K/mm3 (0.0-0.8) 04/19/17 05:27 Eos # 0.1 K/mm3 (0.0-0.4) 04/19/17 05:27 Baso # 0.1 K/mm3 (0.0-0.1) 04/19/17 05:27 Seg Neutrophils % 72.1 % (40.0-70.0) H 04/19/17 05:27 Seg Neutrophils # 6.8 K/mm3 (1.8-7.7) 04/19/17 05:27 PT 15.1 Sec. (12.2-14.9) H 04/19/17 07:38 INR 1.13 (0.87-1.13) 04/19/17 07:38 APTT 26.8 Sec. (24.2-36.6) 04/19/17 07:38 POC ABG pH 7.340 (7.35-7.45) L 04/19/17 08:26 POC ABG pCO2 58.5 (35-45) H 04/19/17 08:26 POC ABG pO2 65 (80-105) L 04/19/17 08:26 POC ABG HCO3 31.6 04/19/17 08:26 POC ABG Total CO2 33 04/19/17 08:26 POC ABG O2 Sat 90 04/19/17 08:26 POC ABG Base Excess 6 04/19/17 08:26 FiO2 28 % 04/19/17 08:26 Sodium 135 mmol/L (137-145) L 04/19/17 04:41 Potassium 5.5 mmol/L (3.6-5.0) H 04/19/17 07:25 Chloride 96.8 mmol/L (98-107) L 04/19/17 04:41 Carbon Dioxide 27 mmol/L (22-30) 04/19/17 04:41 Anion Gap 17 mmol/L 04/19/17 04:41 BUN 51 mg/dL (7-17) H 04/19/17 04:41 Creatinine < 0.2 mg/dL (0.7-1.2) L 04/19/17 04:41 Estimated GFR > 60 ml/min 04/19/17 04:41 BUN/Creatinine Ratio 46 % 04/19/17 04:41 Glucose 102 mg/dL (65-100) H 04/19/17 04:41 POC Glucose 93 (70-105) 04/19/17 04:35 Lactic Acid 0.90 mmol/L (0.7-2.0) 04/19/17 07:01 Calcium 8.9 mg/dL (8.4-10.2) 04/19/17 04:41 Magnesium 2.00 mg/dL (1.7-2.3) 04/19/17 04:41 Total Bilirubin < 0.20 mg/dL (0.1-1.2) 04/19/17 04:41 AST 262 units/L (5-40) H 04/19/17 04:41 ALT 171 units/L (7-56) H 04/19/17 04:41 Alkaline Phosphatase 102 units/L (35-129) 04/19/17 04:41 Ammonia 51.0 umol/L (25-60) 04/19/17 07:01 Total Creatine Kinase 117 units/L (30-135) 04/19/17 07:25 CK-MB (CK-2) 4.5 ng/mL (0.0-4.0) H 04/19/17 07:25 CK-MB (CK-2) Rel Index 3.8 (0-4) 04/19/17 07:25 Troponin T 0.030 ng/mL (0.00-0.029) H 04/19/17 07:01 Total Protein 6.8 g/dL (6.3-8.2) 04/19/17 04:41 Albumin 4.1 g/dL (3.9-5) 04/19/17 04:41 Albumin/Globulin Ratio 1.4 % 04/19/17 04:41 Triglycerides 402 mg/dL (2-149) H 04/19/17 07:01 Cholesterol 183 mg/dL (50-199) 04/19/17 07:01 LDL Cholesterol Direct TNR 04/19/17 07:01 HDL Cholesterol 39 mg/dL (40-59) L 04/19/17 07:01 Cholesterol/HDL Ratio 4.69 % 04/19/17 07:01 TSH 0.733 mlU/mL (0.270-4.200) 04/19/17 05:27 Urine Color Yellow (Yellow) 04/19/17 04:37 Urine Turbidity Clear (Clear) 04/19/17 04:37 Urine pH 5.0 (5.0-7.0) 04/19/17 04:37 Ur Specific [place] 1.020 (1.003-1.030) 04/19/17 04:37 Urine Protein 100 mg/dl mg/dL (Negative) 04/19/17 04:37 Urine Glucose (UA) Neg mg/dL (Negative) 04/19/17 04:37 Urine Ketones Neg mg/dL (Negative) 04/19/17 04:37 Urine Blood Sm (Negative) 04/19/17 04:37 Urine Nitrite Neg (Negative) 04/19/17 04:37 Urine Bilirubin Neg (Negative) 04/19/17 04:37 Urine Urobilinogen < 2.0 mg/dL (<2.0) 04/19/17 04:37 Ur Leukocyte Esterase Neg (Negative) 04/19/17 04:37 Urine WBC (Auto) 2.0 /HPF (0.0-6.0) 04/19/17 04:37 Urine RBC (Auto) 1.0 /HPF (0.0-6.0) 04/19/17 04:37 U Epithel Cells (Auto) < 1.0 /HPF (0-13.0) 04/19/17 04:37 Urine Bacteria (Auto) 1+ /HPF (Negative) 04/19/17 04:37 Urine Mucus Few /HPF 04/19/17 04:37 Salicylates < 0.3 mg/dL (2.8-20.0) L 04/19/17 05:27 Urine Opiates Screen Presumptive positive 04/19/17 04:37 Urine Methadone Screen Presumptive negative 04/19/17 04:37 Acetaminophen < 15.0 ug/mL (10.0-30.0) 04/19/17 05:27 Ur Barbiturates Screen Presumptive negative 04/19/17 04:37 Phenytoin 1.6 ug/mL (10.0-20.0) L 04/19/17 05:27 Ur Phencyclidine Scrn Presumptive negative 04/19/17 04:37 Ur Amphetamines Screen Presumptive negative 04/19/17 04:37 U Benzodiazepines Scrn Presumptive negative 04/19/17 04:37 Urine Cocaine Screen Presumptive negative 04/19/17 04:37 U Marijuana (THC) Screen Presumptive negative 04/19/17 04:37 Drugs of Abuse Note Disclamer 04/19/17 04:37 Plasma/Serum Alcohol < 0.01 gm% (0-0.07) 04/19/17 05:27 Assessment and Plan Assessment and plan: Patient is a 51-year-old female with past medical history of morbid obesity, CHF, COPD with O2 dependence, CVA with residual right side deficits, 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 Acute on chronic respiratory failure with hypoxia Patient oxygen saturation improved with 4LNC; currently SPO2 98%. No acute respiratory distress noted. Aggressive Nebulizers/Inhalers ABG when necessary Oxygen supplement Supportive care Acute COPD exacerbation Continue on Duoneb every 6 hours Started IV steroid Solumedrol Initiated empiric IV Rocephin and azithromycin Oxygen as necessary Hyperkalemia Given lactulose We will repeat BMP Closely monitor electrolytes Diabetes mellitus Accu-Chek before meals and at bedtime Sliding scale insulin/NovoLog ADA carbohydrate consistent diet Hypertensive urgency Continue home antihypertensive medications Closely monitor blood pressure Bilateral LE cellulitis Blood culture collected prior to antibiotic Follow blood cultures Initiated IV clindamycin. Patient allergic to Zosyn and vancomycin Supportive care Morbid obesity Counseled about the importance of weight reduction DVT prophylaxis Lovenox Advance Directives: Yes VTE prophylaxis?: Chemical Contraindication Mechanical VTE Prophylaxis: Treatment Not Indicated Plan of care discussed with patient/family: Yes <NORMAN GARCIA - Last Filed: 04/20/17 08:31> History of Present Illness Date of admission: 04/19/17 09:18 Medications and Allergies Active Meds: Active Medications Acetaminophen (Tylenol) 650 mg PO Q4H PRN PRN Reason: Pain MILD(1-3)/Fever >100.5/[place] Albuterol (Proventil) 2.5 mg IH Q3HRT PRN PRN Reason: Shortness Of Breath Albuterol/Ipratropium (Duoneb *Not For Prn Use*) 1 ampul IH Q6HRT [facility] Last Admin: 04/20/17 02:54 Dose: Not Given Apixaban (Eliquis) 5 mg PO BID ASHLEY PRN Reason: Protocol Last Admin: 04/19/17 23:00 Dose: 5 mg Bisacodyl (Dulcolax) 10 mg NE QDAY PRN PRN Reason: Constipation unrelieved by MOM Clonidine HCl (Catapres) 0.3 mg PO Q8HR [facility] Last Admin: 04/20/17 06:20 Dose: 0.3 mg Duloxetine HCl (Cymbalta) 60 mg PO QHS [facility] Last Admin: 04/19/17 23:00 Dose: 60 mg Furosemide (Lasix) 20 mg PO QDAY [facility] Last Admin: 04/19/17 11:00 Dose: 20 mg Levofloxacin/Dextrose (Levaquin 750mg/150ml) 750 mg in 150 mls @ 100 mls/hr IV Q24HR [facility] PRN Reason: Protocol Clindamycin HCl (Cleocin 600 Mg/50 Ml) 600 mg in 50 mls @ 100 mls/hr IV Q6HR [facility] Last Admin: 04/20/17 06:20 Dose: 100 mls/hr Lorazepam (Ativan) 2 mg PO TID [facility] Last Admin: 04/20/17 08:23 Dose: 2 mg Methylprednisolone Sodium Succinate (Solu-Medrol) 80 mg IV Q8HR [facility] Last Admin: 04/20/17 06:20 Dose: 80 mg Metoprolol Tartrate (Lopressor) 25 mg PO BID [facility] Last Admin: 04/19/17 23:00 Dose: 25 mg Morphine Sulfate (Ms Contin Er) 15 mg PO Q12HR [facility] Last Admin: 04/19/17 23:00 Dose: 15 mg Ondansetron HCl (Zofran) 4 mg IV Q8H PRN PRN Reason: N/V unrelieved by Reglan Pantoprazole Sodium (Protonix) 40 mg PO QDAY [facility] Last Admin: 04/19/17 11:00 Dose: 40 mg Phenytoin (Dilantin) 300 mg PO TID [facility] Last Admin: 04/20/17 08:23 Dose: 300 mg Temazepam (Restoril) 15 mg PO QHS PRN PRN Reason: Sleep Tizanidine HCl (Zanaflex) 4 mg PO BID [facility] Last Admin: 04/19/17 23:00 Dose: 4 mg Exam - Constitutional Vitals: Temp Pulse Resp BP Pulse Ox 98.5 F 66 22 168/80 94 04/19/17 16:17 04/20/17 06:20 04/19/17 22:00 04/20/17 06:20 04/19/17 22:20 Results - Labs CBC & Chem 7: 04/19/17 05:27 04/19/17 07:25 Labs: Laboratory Last Values WBC 9.5 K/mm3 (4.5-11.0) 04/19/17 05:27 RBC 3.81 M/mm3 (3.65-5.03) 04/19/17 05:27 Hgb 13.4 gm/dl (10.1-14.3) 04/19/17 05:27 Hct 39.3 % (30.3-42.9) 04/19/17 05:27 MCV 103 fl (79-97) H 04/19/17 05:27 MCH 35 pg (28-32) H 04/19/17 05:27 MCHC 34 % (30-34) 04/19/17 05:27 RDW 11.9 % (13.2-15.2) L 04/19/17 05:27 Plt Count 164 K/mm3 (140-440) 04/19/17 05:27 Lymph % (Auto) 20.3 % (13.4-35.0) 04/19/17 05:27 [place] % (Auto) 6.3 % (0.0-7.3) 04/19/17 05:27 Eos % (Auto) 0.6 % (0.0-4.3) 04/19/17 05:27 Baso % (Auto) 0.7 % (0.0-1.8) 04/19/17 05:27 Lymph # 1.9 K/mm3 (1.2-5.4) 04/19/17 05:27 [place] # 0.6 K/mm3 (0.0-0.8) 04/19/17 05:27 Eos # 0.1 K/mm3 (0.0-0.4) 04/19/17 05:27 Baso # 0.1 K/mm3 (0.0-0.1) 04/19/17 05:27 Seg Neutrophils % 72.1 % (40.0-70.0) H 04/19/17 05:27 Seg Neutrophils # 6.8 K/mm3 (1.8-7.7) 04/19/17 05:27 PT 15.1 Sec. (12.2-14.9) H 04/19/17 07:38 INR 1.13 (0.87-1.13) 04/19/17 07:38 APTT 26.8 Sec. (24.2-36.6) 04/19/17 07:38 POC ABG pH 7.340 (7.35-7.45) L 04/19/17 08:26 POC ABG pCO2 58.5 (35-45) H 04/19/17 08:26 POC ABG pO2 65 (80-105) L 04/19/17 08:26 POC ABG HCO3 31.6 04/19/17 08:26 POC ABG Total CO2 33 04/19/17 08:26 POC ABG O2 Sat 90 04/19/17 08:26 POC ABG Base Excess 6 04/19/17 08:26 FiO2 28 % 04/19/17 08:26 Sodium 135 mmol/L (137-145) L 04/19/17 04:41 Potassium 5.5 mmol/L (3.6-5.0) H 04/19/17 07:25 Chloride 96.8 mmol/L (98-107) L 04/19/17 04:41 Carbon Dioxide 27 mmol/L (22-30) 04/19/17 04:41 Anion Gap 17 mmol/L 04/19/17 04:41 BUN 51 mg/dL (7-17) H 04/19/17 04:41 Creatinine < 0.2 mg/dL (0.7-1.2) L 04/19/17 04:41 Estimated GFR > 60 ml/min 04/19/17 04:41 BUN/Creatinine Ratio 46 % 04/19/17 04:41 Glucose 102 mg/dL (65-100) H 04/19/17 04:41 POC Glucose 127 (70-105) H 04/20/17 05:53 Lactic Acid 0.90 mmol/L (0.7-2.0) 04/19/17 07:01 Calcium 8.9 mg/dL (8.4-10.2) 04/19/17 04:41 Magnesium 2.00 mg/dL (1.7-2.3) 04/19/17 04:41 Total Bilirubin < 0.20 mg/dL (0.1-1.2) 04/19/17 04:41 AST 262 units/L (5-40) H 04/19/17 04:41 ALT 171 units/L (7-56) H 04/19/17 04:41 Alkaline Phosphatase 102 units/L (35-129) 04/19/17 04:41 Ammonia 51.0 umol/L (25-60) 04/19/17 07:01 Total Creatine Kinase 117 units/L (30-135) 04/19/17 07:25 CK-MB (CK-2) 4.5 ng/mL (0.0-4.0) H 04/19/17 07:25 CK-MB (CK-2) Rel Index 3.8 (0-4) 04/19/17 07:25 Troponin T 0.030 ng/mL (0.00-0.029) H 04/19/17 07:01 Total Protein 6.8 g/dL (6.3-8.2) 04/19/17 04:41 Albumin 4.1 g/dL (3.9-5) 04/19/17 04:41 Albumin/Globulin Ratio 1.4 % 04/19/17 04:41 Triglycerides 402 mg/dL (2-149) H 04/19/17 07:01 Cholesterol 183 mg/dL (50-199) 04/19/17 07:01 LDL Cholesterol Direct TNR 04/19/17 07:01 HDL Cholesterol 39 mg/dL (40-59) L 04/19/17 07:01 Cholesterol/HDL Ratio 4.69 % 04/19/17 07:01 TSH 0.733 mlU/mL (0.270-4.200) 04/19/17 05:27 Urine Color Yellow (Yellow) 04/19/17 04:37 Urine Turbidity Clear (Clear) 04/19/17 04:37 Urine pH 5.0 (5.0-7.0) 04/19/17 04:37 Ur Specific [place] 1.020 (1.003-1.030) 04/19/17 04:37 Urine Protein 100 mg/dl mg/dL (Negative) 04/19/17 04:37 Urine Glucose (UA) Neg mg/dL (Negative) 04/19/17 04:37 Urine Ketones Neg mg/dL (Negative) 04/19/17 04:37 Urine Blood Sm (Negative) 04/19/17 04:37 Urine Nitrite Neg (Negative) 04/19/17 04:37 Urine Bilirubin Neg (Negative) 04/19/17 04:37 Urine Urobilinogen < 2.0 mg/dL (<2.0) 04/19/17 04:37 Ur Leukocyte Esterase Neg (Negative) 04/19/17 04:37 Urine WBC (Auto) 2.0 /HPF (0.0-6.0) 04/19/17 04:37 Urine RBC (Auto) 1.0 /HPF (0.0-6.0) 04/19/17 04:37 U Epithel Cells (Auto) < 1.0 /HPF (0-13.0) 04/19/17 04:37 Urine Bacteria (Auto) 1+ /HPF (Negative) 04/19/17 04:37 Urine Mucus Few /HPF 04/19/17 04:37 Salicylates < 0.3 mg/dL (2.8-20.0) L 04/19/17 05:27 Urine Opiates Screen Presumptive positive 04/19/17 04:37 Urine Methadone Screen Presumptive negative 04/19/17 04:37 Acetaminophen < 15.0 ug/mL (10.0-30.0) 04/19/17 05:27 Ur Barbiturates Screen Presumptive negative 04/19/17 04:37 Phenytoin 1.6 ug/mL (10.0-20.0) L 04/19/17 05:27 Ur Phencyclidine Scrn Presumptive negative 04/19/17 04:37 Ur Amphetamines Screen Presumptive negative 04/19/17 04:37 U Benzodiazepines Scrn Presumptive negative 04/19/17 04:37 Urine Cocaine Screen Presumptive negative 04/19/17 04:37 U Marijuana (THC) Screen Presumptive negative 04/19/17 04:37 Drugs of Abuse Note Disclamer 04/19/17 04:37 Plasma/Serum Alcohol < 0.01 gm% (0-0.07) 04/19/17 05:27 Assessment and Plan Assessment and plan: I saw and evaluated the patient. I agree with the findings and the plan of care as documented in the Nurse Practitioner's~note, with the following corrections and additions. Agree with above documentation and management Will hold lisinopril in view of hyperkalemia, may resume once potassium levels are within normal limits
[2017-04-19] MEDS ORDERED: ZOFRAN IV PRN (09:18)
[2017-04-19] MEDS ORDERED: MORPHINE IV PRN (09:18)
[2017-04-19] MEDS ORDERED: DULCOLAX PR PRN (09:18)
[2017-04-19] MEDS ORDERED: PROVENTIL IH PRN (09:18)
[2017-04-19] MEDS ORDERED: TEMAZEPAM 15 MG PO PRN (09:25)
[2017-04-19] MEDS ORDERED: KEPPRA PO SCH (10:00)
[2017-04-19] MEDS ORDERED: TIZANIDINE HCL 4 MG PO SCH (10:00)
[2017-04-19] MEDS ORDERED: MORPHINE 15 MG PO SCH (10:00)
[2017-04-19] MEDS ORDERED: MORPHINE PO SCH (10:00)
[2017-04-19] MEDS ORDERED: DELTASONE PO SCH (10:00)
[2017-04-19] MEDS ORDERED: LEVAQUIN PO SCH (10:00)
[2017-04-19] MEDS ORDERED: LOVENOX SUB-Q SCH (10:00)
[2017-04-19] MEDS ORDERED: ZESTRIL PO SCH (10:00)
[2017-04-19] MEDS ORDERED: KIONEX PR ONE (10:40)
[2017-04-19] MEDS: PROTONIX PO SCH (11:00)
[2017-04-19] MEDS: LASIX PO SCH (11:00)
[2017-04-19] MEDS ORDERED: VANCOMYCIN PHARMACY TO DOSE IV SCH (11:00)
[2017-04-19] MEDS ORDERED: LOVENOX SUB-Q ONE (11:27)
[2017-04-19] MEDS: LOPRESSOR PO SCH ×2 (11:52→23:00)
[2017-04-19] MEDS: ELIQUIS PO SCH ×2 (11:52→23:00)
[2017-04-19] MEDS ORDERED: RESTORIL PO PRN (12:16)
[2017-04-19] MEDS ORDERED: DUONEB *Not for PRN Use IH SCH (14:00)
[2017-04-19] MEDS ORDERED: ZOSYN/NS 4.5GM/100ML 4.5 GM/100 ML VIAL IV SCH (14:00)
[2017-04-19] MEDS ORDERED: NON-FORMULARY (Clonidine 0.3 MG) PO SCH (14:00)
[2017-04-19] MEDS: CATAPRES PO SCH ×2 (14:33→23:00)
[2017-04-19] MEDS: ATIVAN PO SCH ×2 (14:33→21:12)
[2017-04-19] MEDS: MS CONTIN ER PO SCH ×2 (14:33→23:00)
[2017-04-19] MEDS: DILANTIN PO SCH ×2 (14:34→21:12)
[2017-04-19] MEDS: DUONEB *Not for PRN Use IH SCH ×2 (15:18→20:49)
[2017-04-19] MEDS: ZANAFLEX PO SCH ×2 (15:29→23:00)
[2017-04-19] MEDS: CLEOCIN 600 MG/50 mL 600 MG/50 ML BAG IV SCH ×2 (18:15→23:34)
[2017-04-19] MEDS ORDERED: NON-FORMULARY (Duloxetine Hcl [Cymbalta] 60 MG) PO SCH (22:00)
[2017-04-19] MEDS: CYMBALTA PO SCH (23:00)
[2017-04-20] MEDS: DUONEB *Not for PRN Use IH SCH ×4 (02:54→21:08)
[2017-04-20] MEDS: CATAPRES PO SCH ×3 (06:20→21:45)
[2017-04-20] MEDS: CLEOCIN 600 MG/50 mL 600 MG/50 ML BAG IV SCH ×4 (06:20→23:31)
--- NOTE | 2017-04-20 07:58 | Progress Note ---
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 Acute on chronic respiratory failure with hypoxia Patient oxygen saturation improved with 4LNC; currently SPO2 98%. No acute respiratory distress noted. Aggressive Nebulizers/Inhalers ABG when necessary Oxygen supplement Supportive care Acute COPD exacerbation Continue on Duoneb every 6 hours Continue IV steroid Solumedrol Continue on IV Levaquin Oxygen as necessary Hyperkalemia Continue to hold Lisinopril and start her on Norvasc Given lactulose We will repeat BMP Closely monitor electrolytes Diabetes mellitus Accu-Chek before meals and at bedtime Sliding scale insulin/NovoLog ADA carbohydrate consistent diet Hypertensive urgency Continue home antihypertensive medications Closely monitor blood pressure Bilateral LE cellulitis Blood culture collected prior to antibiotic Follow blood cultures Continue on IV Clindamycin. Patient allergic to Zosyn and vancomycin Supportive care Morbid obesity Counseled about the importance of weight reduction Mild hyponatremia IV fluid that will correct it Closely monitor electrolytes DVT prophylaxis Lovenox History Interval history: Patient complains dyspnea on exertion; she denies chest pain. Labs and nursing notes reviewed. Hospitalist Physical - Constitutional Vitals: Temp Pulse Resp BP Pulse Ox 98.5 F 66 22 168/80 94 04/19/17 16:17 04/20/17 06:20 04/19/17 22:00 04/20/17 06:20 04/19/17 22:20 General appearance: Present: no acute distress - EENT Eyes: Present: PERRL ENT: hearing intact - Neck Neck: Present: supple - Respiratory Respiratory effort: normal Respiratory: bilateral: wheezing - Cardiovascular Rhythm: regular Heart Sounds: Present: S1 & S2 - Abdominal General gastrointestinal: soft, non-tender - Integumentary Integumentary: Present: clear, warm, dry - Psychiatric Psychiatric: appropriate mood/affect - Neurologic Neurologic: moves all extremities - Allied Health Allied health notes reviewed: nursing Results - Labs CBC & Chem 7: 04/19/17 05:27 04/19/17 07:25 Labs: Laboratory Last Values WBC 9.5 K/mm3 (4.5-11.0) 04/19/17 05:27 RBC 3.81 M/mm3 (3.65-5.03) 04/19/17 05:27 Hgb 13.4 gm/dl (10.1-14.3) 04/19/17 05:27 Hct 39.3 % (30.3-42.9) 04/19/17 05:27 MCV 103 fl (79-97) H 04/19/17 05:27 MCH 35 pg (28-32) H 04/19/17 05:27 MCHC 34 % (30-34) 04/19/17 05:27 RDW 11.9 % (13.2-15.2) L 04/19/17 05:27 Plt Count 164 K/mm3 (140-440) 04/19/17 05:27 Lymph % (Auto) 20.3 % (13.4-35.0) 04/19/17 05:27 [place] % (Auto) 6.3 % (0.0-7.3) 04/19/17 05:27 Eos % (Auto) 0.6 % (0.0-4.3) 04/19/17 05:27 Baso % (Auto) 0.7 % (0.0-1.8) 04/19/17 05:27 Lymph # 1.9 K/mm3 (1.2-5.4) 04/19/17 05:27 [place] # 0.6 K/mm3 (0.0-0.8) 04/19/17 05:27 Eos # 0.1 K/mm3 (0.0-0.4) 04/19/17 05:27 Baso # 0.1 K/mm3 (0.0-0.1) 04/19/17 05:27 Seg Neutrophils % 72.1 % (40.0-70.0) H 04/19/17 05:27 Seg Neutrophils # 6.8 K/mm3 (1.8-7.7) 04/19/17 05:27 PT 15.1 Sec. (12.2-14.9) H 04/19/17 07:38 INR 1.13 (0.87-1.13) 04/19/17 07:38 APTT 26.8 Sec. (24.2-36.6) 04/19/17 07:38 POC ABG pH 7.340 (7.35-7.45) L 04/19/17 08:26 POC ABG pCO2 58.5 (35-45) H 04/19/17 08:26 POC ABG pO2 65 (80-105) L 04/19/17 08:26 POC ABG HCO3 31.6 04/19/17 08:26 POC ABG Total CO2 33 04/19/17 08:26 POC ABG O2 Sat 90 04/19/17 08:26 POC ABG Base Excess 6 04/19/17 08:26 FiO2 28 % 04/19/17 08:26 Sodium 135 mmol/L (137-145) L 04/19/17 04:41 Potassium 5.5 mmol/L (3.6-5.0) H 04/19/17 07:25 Chloride 96.8 mmol/L (98-107) L 04/19/17 04:41 Carbon Dioxide 27 mmol/L (22-30) 04/19/17 04:41 Anion Gap 17 mmol/L 04/19/17 04:41 BUN 51 mg/dL (7-17) H 04/19/17 04:41 Creatinine < 0.2 mg/dL (0.7-1.2) L 04/19/17 04:41 Estimated GFR > 60 ml/min 04/19/17 04:41 BUN/Creatinine Ratio 46 % 04/19/17 04:41 Glucose 102 mg/dL (65-100) H 04/19/17 04:41 POC Glucose 127 (70-105) H 04/20/17 05:53 Lactic Acid 0.90 mmol/L (0.7-2.0) 04/19/17 07:01 Calcium 8.9 mg/dL (8.4-10.2) 04/19/17 04:41 Magnesium 2.00 mg/dL (1.7-2.3) 04/19/17 04:41 Total Bilirubin < 0.20 mg/dL (0.1-1.2) 04/19/17 04:41 AST 262 units/L (5-40) H 04/19/17 04:41 ALT 171 units/L (7-56) H 04/19/17 04:41 Alkaline Phosphatase 102 units/L (35-129) 04/19/17 04:41 Ammonia 51.0 umol/L (25-60) 04/19/17 07:01 Total Creatine Kinase 117 units/L (30-135) 04/19/17 07:25 CK-MB (CK-2) 4.5 ng/mL (0.0-4.0) H 04/19/17 07:25 CK-MB (CK-2) Rel Index 3.8 (0-4) 04/19/17 07:25 Troponin T 0.030 ng/mL (0.00-0.029) H 04/19/17 07:01 Total Protein 6.8 g/dL (6.3-8.2) 04/19/17 04:41 Albumin 4.1 g/dL (3.9-5) 04/19/17 04:41 Albumin/Globulin Ratio 1.4 % 04/19/17 04:41 Triglycerides 402 mg/dL (2-149) H 04/19/17 07:01 Cholesterol 183 mg/dL (50-199) 04/19/17 07:01 LDL Cholesterol Direct TNR 04/19/17 07:01 HDL Cholesterol 39 mg/dL (40-59) L 04/19/17 07:01 Cholesterol/HDL Ratio 4.69 % 04/19/17 07:01 TSH 0.733 mlU/mL (0.270-4.200) 04/19/17 05:27 Urine Color Yellow (Yellow) 04/19/17 04:37 Urine Turbidity Clear (Clear) 04/19/17 04:37 Urine pH 5.0 (5.0-7.0) 04/19/17 04:37 Ur Specific [place] 1.020 (1.003-1.030) 04/19/17 04:37 Urine Protein 100 mg/dl mg/dL (Negative) 04/19/17 04:37 Urine Glucose (UA) Neg mg/dL (Negative) 04/19/17 04:37 Urine Ketones Neg mg/dL (Negative) 04/19/17 04:37 Urine Blood Sm (Negative) 04/19/17 04:37 Urine Nitrite Neg (Negative) 04/19/17 04:37 Urine Bilirubin Neg (Negative) 04/19/17 04:37 Urine Urobilinogen < 2.0 mg/dL (<2.0) 04/19/17 04:37 Ur Leukocyte Esterase Neg (Negative) 04/19/17 04:37 Urine WBC (Auto) 2.0 /HPF (0.0-6.0) 04/19/17 04:37 Urine RBC (Auto) 1.0 /HPF (0.0-6.0) 04/19/17 04:37 U Epithel Cells (Auto) < 1.0 /HPF (0-13.0) 04/19/17 04:37 Urine Bacteria (Auto) 1+ /HPF (Negative) 04/19/17 04:37 Urine Mucus Few /HPF 04/19/17 04:37 Salicylates < 0.3 mg/dL (2.8-20.0) L 04/19/17 05:27 Urine Opiates Screen Presumptive positive 04/19/17 04:37 Urine Methadone Screen Presumptive negative 04/19/17 04:37 Acetaminophen < 15.0 ug/mL (10.0-30.0) 04/19/17 05:27 Ur Barbiturates Screen Presumptive negative 04/19/17 04:37 Phenytoin 1.6 ug/mL (10.0-20.0) L 04/19/17 05:27 Ur Phencyclidine Scrn Presumptive negative 04/19/17 04:37 Ur Amphetamines Screen Presumptive negative 04/19/17 04:37 U Benzodiazepines Scrn Presumptive negative 04/19/17 04:37 Urine Cocaine Screen Presumptive negative 04/19/17 04:37 U Marijuana (THC) Screen Presumptive negative 04/19/17 04:37 Drugs of Abuse Note Disclamer 04/19/17 04:37 Plasma/Serum Alcohol < 0.01 gm% (0-0.07) 04/19/17 05:27 <NORMAN GARCIA - Last Filed: 04/20/17 19:21> Assessment and Plan Assessment and plan: I saw and evaluated the patient. I agree with the findings and the plan of care as documented in the Nurse Practitioner's~note, with the following corrections and additions. Morbid obesity; BMI 58.2 Counseling done, advised diet modification, exercise as tolerated and weight reduction Patient would benefit by bariatric surgical evaluation for weight reduction program when medically stable Continue current management The patient is significant improvement Plan of care discussed with the patient, answered all her questions Hospitalist Physical - Constitutional Vitals: Temp Pulse Resp BP Pulse Ox 98.1 F 60 24 150/70 91 04/20/17 15:46 04/20/17 15:46 04/20/17 15:46 04/20/17 15:46 04/20/17 15:46 Results - Labs CBC & Chem 7: 04/20/17 10:13 04/20/17 10:13 Labs: Laboratory Last Values WBC 6.3 K/mm3 (4.5-11.0) 04/20/17 10:13 RBC 3.89 M/mm3 (3.65-5.03) 04/20/17 10:13 Hgb 13.3 gm/dl (10.1-14.3) 04/20/17 10:13 Hct 39.7 % (30.3-42.9) 04/20/17 10:13 MCV 102 fl (79-97) H 04/20/17 10:13 MCH 34 pg (28-32) H 04/20/17 10:13 MCHC 34 % (30-34) 04/20/17 10:13 RDW 11.7 % (13.2-15.2) L 04/20/17 10:13 Plt Count 153 K/mm3 (140-440) 04/20/17 10:13 Lymph % (Auto) 20.3 % (13.4-35.0) 04/19/17 05:27 [place] % (Auto) 6.3 % (0.0-7.3) 04/19/17 05:27 Eos % (Auto) 0.6 % (0.0-4.3) 04/19/17 05:27 Baso % (Auto) 0.7 % (0.0-1.8) 04/19/17 05:27 Lymph # 1.9 K/mm3 (1.2-5.4) 04/19/17 05:27 [place] # 0.6 K/mm3 (0.0-0.8) 04/19/17 05:27 Eos # 0.1 K/mm3 (0.0-0.4) 04/19/17 05:27 Baso # 0.1 K/mm3 (0.0-0.1) 04/19/17 05:27 Add Manual Diff Complete 04/20/17 10:13 Total Counted 100 04/20/17 10:13 Seg Neutrophils % 72.1 % (40.0-70.0) H 04/19/17 05:27 Seg Neuts % (Manual) 78.0 % (40.0-70.0) H 04/20/17 10:13 Band Neutrophils % 1.0 % 04/20/17 10:13 Lymphocytes % (Manual) 17.0 % (13.4-35.0) 04/20/17 10:13 Reactive Lymphs % (Man) 0 % 04/20/17 10:13 Monocytes % (Manual) 1.0 % (0.0-7.3) 04/20/17 10:13 Eosinophils % (Manual) 0 % (0.0-4.3) 04/20/17 10:13 Basophils % (Manual) 0 % (0.0-1.8) 04/20/17 10:13 Metamyelocytes % 3.0 % 04/20/17 10:13 Myelocytes % 0 % 04/20/17 10:13 Promyelocytes % 0 % 04/20/17 10:13 Blast Cells % 0 % 04/20/17 10:13 Nucleated RBC % Not Reportable 04/20/17 10:13 Seg Neutrophils # 6.8 K/mm3 (1.8-7.7) 04/19/17 05:27 Seg Neutrophils # Man 4.9 K/mm3 (1.8-7.7) 04/20/17 10:13 Band Neutrophils # 0.1 K/mm3 04/20/17 10:13 Lymphocytes # (Manual) 1.1 K/mm3 (1.2-5.4) L 04/20/17 10:13 Abs React Lymphs (Man) 0.0 K/mm3 04/20/17 10:13 Monocytes # (Manual) 0.1 K/mm3 (0.0-0.8) 04/20/17 10:13 Eosinophils # (Manual) 0.0 K/mm3 (0.0-0.4) 04/20/17 10:13 Basophils # (Manual) 0.0 K/mm3 (0.0-0.1) 04/20/17 10:13 Metamyelocytes # 0.2 K/mm3 04/20/17 10:13 Myelocytes # 0.0 K/mm3 04/20/17 10:13 Promyelocytes # 0.0 K/mm3 04/20/17 10:13 Blast Cells # 0.0 K/mm3 04/20/17 10:13 WBC Morphology Not Reportable 04/20/17 10:13 Hypersegmented Neuts Not Reportable 04/20/17 10:13 Hyposegmented Neuts Not Reportable 04/20/17 10:13 Hypogranular Neuts Not Reportable 04/20/17 10:13 Smudge Cells Not Reportable 04/20/17 10:13 Toxic Granulation Not Reportable 04/20/17 10:13 Toxic Vacuolation Not Reportable 04/20/17 10:13 Dohle Bodies Not Reportable 04/20/17 10:13 Pelger-Huet Anomaly Not Reportable 04/20/17 10:13 Tim Rods Not Reportable 04/20/17 10:13 Platelet Estimate Appears normal 04/20/17 10:13 Clumped Platelets Not Reportable 04/20/17 10:13 Plt Clumps, EDTA Not Reportable 04/20/17 10:13 Large Platelets Not Reportable 04/20/17 10:13 Giant Platelets Not Reportable 04/20/17 10:13 Platelet Satelliting Not Reportable 04/20/17 10:13 Plt Morphology Comment Not Reportable 04/20/17 10:13 RBC Morphology Not Reportable 04/20/17 10:13 Dimorphic RBCs Not Reportable 04/20/17 10:13 Polychromasia Not Reportable 04/20/17 10:13 Hypochromasia Not Reportable 04/20/17 10:13 Poikilocytosis Not Reportable 04/20/17 10:13 Anisocytosis Not Reportable 04/20/17 10:13 Microcytosis Not Reportable 04/20/17 10:13 Macrocytosis Not Reportable 04/20/17 10:13 Spherocytes Not Reportable 04/20/17 10:13 Pappenheimer Bodies Not Reportable 04/20/17 10:13 Sickle Cells Not Reportable 04/20/17 10:13 Target Cells Not Reportable 04/20/17 10:13 Tear Drop Cells Rare 04/20/17 10:13 Ovalocytes Few 04/20/17 10:13 Stomatocytes 3+ 04/20/17 10:13 Helmet Cells Not Reportable 04/20/17 10:13 Jones-Chadron Bodies Not Reportable 04/20/17 10:13 [place] Rings Not Reportable 04/20/17 10:13 Elizabeth Cells Not Reportable 04/20/17 10:13 Bite Cells Not Reportable 04/20/17 10:13 Crenated Cell Not Reportable 04/20/17 10:13 Elliptocytes Not Reportable 04/20/17 10:13 Acanthocytes (Spur) Not Reportable 04/20/17 10:13 Rouleaux Not Reportable 04/20/17 10:13 Hemoglobin C Crystals Not Reportable 04/20/17 10:13 Schistocytes Not Reportable 04/20/17 10:13 Malaria parasites Not Reportable 04/20/17 10:13 Shayne Bodies Not Reportable 04/20/17 10:13 Hem Pathologist Commnt No 04/20/17 10:13 PT 15.1 Sec. (12.2-14.9) H 04/19/17 07:38 INR 1.13 (0.87-1.13) 04/19/17 07:38 APTT 26.8 Sec. (24.2-36.6) 04/19/17 07:38 POC ABG pH 7.340 (7.35-7.45) L 04/19/17 08:26 POC ABG pCO2 58.5 (35-45) H 04/19/17 08:26 POC ABG pO2 65 (80-105) L 04/19/17 08:26 POC ABG HCO3 31.6 04/19/17 08:26 POC ABG Total CO2 33 04/19/17 08:26 POC ABG O2 Sat 90 04/19/17 08:26 POC ABG Base Excess 6 04/19/17 08:26 FiO2 28 % 04/19/17 08:26 Sodium 140 mmol/L (137-145) 04/20/17 10:13 Potassium 4.4 mmol/L (3.6-5.0) 04/20/17 10:13 Chloride 95.3 mmol/L (98-107) L 04/20/17 10:13 Carbon Dioxide 28 mmol/L (22-30) 04/20/17 10:13 Anion Gap 21 mmol/L 04/20/17 10:13 BUN 38 mg/dL (7-17) H 04/20/17 10:13 Creatinine 0.8 mg/dL (0.7-1.2) D 04/20/17 10:13 Estimated GFR > 60 ml/min 04/20/17 10:13 BUN/Creatinine Ratio 48 % 04/20/17 10:13 Glucose 173 mg/dL (65-100) H 04/20/17 10:13 POC Glucose 111 (70-105) H 04/20/17 16:21 Lactic Acid 0.90 mmol/L (0.7-2.0) 04/19/17 07:01 Calcium 8.6 mg/dL (8.4-10.2) 04/20/17 10:13 Magnesium 2.00 mg/dL (1.7-2.3) 04/19/17 04:41 Total Bilirubin < 0.20 mg/dL (0.1-1.2) 04/19/17 04:41 AST 262 units/L (5-40) H 04/19/17 04:41 ALT 171 units/L (7-56) H 04/19/17 04:41 Alkaline Phosphatase 102 units/L (35-129) 04/19/17 04:41 Ammonia 51.0 umol/L (25-60) 04/19/17 07:01 Total Creatine Kinase 117 units/L (30-135) 04/19/17 07:25 CK-MB (CK-2) 4.5 ng/mL (0.0-4.0) H 04/19/17 07:25 CK-MB (CK-2) Rel Index 3.8 (0-4) 04/19/17 07:25 Troponin T 0.030 ng/mL (0.00-0.029) H 04/19/17 07:01 Total Protein 6.8 g/dL (6.3-8.2) 04/19/17 04:41 Albumin 4.1 g/dL (3.9-5) 04/19/17 04:41 Albumin/Globulin Ratio 1.4 % 04/19/17 04:41 Triglycerides 402 mg/dL (2-149) H 04/19/17 07:01 Cholesterol 183 mg/dL (50-199) 04/19/17 07:01 LDL Cholesterol Direct TNR 04/19/17 07:01 HDL Cholesterol 39 mg/dL (40-59) L 04/19/17 07:01 Cholesterol/HDL Ratio 4.69 % 04/19/17 07:01 TSH 0.733 mlU/mL (0.270-4.200) 04/19/17 05:27 Urine Color Yellow (Yellow) 04/19/17 04:37 Urine Turbidity Clear (Clear) 04/19/17 04:37 Urine pH 5.0 (5.0-7.0) 04/19/17 04:37 Ur Specific [place] 1.020 (1.003-1.030) 04/19/17 04:37 Urine Protein 100 mg/dl mg/dL (Negative) 04/19/17 04:37 Urine Glucose (UA) Neg mg/dL (Negative) 04/19/17 04:37 Urine Ketones Neg mg/dL (Negative) 04/19/17 04:37 Urine Blood Sm (Negative) 04/19/17 04:37 Urine Nitrite Neg (Negative) 04/19/17 04:37 Urine Bilirubin Neg (Negative) 04/19/17 04:37 Urine Urobilinogen < 2.0 mg/dL (<2.0) 04/19/17 04:37 Ur Leukocyte Esterase Neg (Negative) 04/19/17 04:37 Urine WBC (Auto) 2.0 /HPF (0.0-6.0) 04/19/17 04:37 Urine RBC (Auto) 1.0 /HPF (0.0-6.0) 04/19/17 04:37 U Epithel Cells (Auto) < 1.0 /HPF (0-13.0) 04/19/17 04:37 Urine Bacteria (Auto) 1+ /HPF (Negative) 04/19/17 04:37 Urine Mucus Few /HPF 04/19/17 04:37 Salicylates < 0.3 mg/dL (2.8-20.0) L 04/19/17 05:27 Urine Opiates Screen Presumptive positive 04/19/17 04:37 Urine Methadone Screen Presumptive negative 04/19/17 04:37 Acetaminophen < 15.0 ug/mL (10.0-30.0) 04/19/17 05:27 Ur Barbiturates Screen Presumptive negative 04/19/17 04:37 Phenytoin 1.6 ug/mL (10.0-20.0) L 04/19/17 05:27 Ur Phencyclidine Scrn Presumptive negative 04/19/17 04:37 Ur Amphetamines Screen Presumptive negative 04/19/17 04:37 U Benzodiazepines Scrn Presumptive negative 04/19/17 04:37 Urine Cocaine Screen Presumptive negative 04/19/17 04:37 U Marijuana (THC) Screen Presumptive negative 04/19/17 04:37 Drugs of Abuse Note Disclamer 04/19/17 04:37 Plasma/Serum Alcohol < 0.01 gm% (0-0.07) 04/19/17 05:27
[2017-04-20] MEDS: ATIVAN PO SCH ×3 (08:23→21:39)
[2017-04-20] MEDS: DILANTIN PO SCH ×3 (08:23→21:39)
[2017-04-20] MEDS: LOPRESSOR PO SCH ×2 (09:49→21:44)
[2017-04-20] MEDS: LASIX PO SCH (09:49)
[2017-04-20] MEDS: MS CONTIN ER PO SCH ×2 (09:49→21:43)
[2017-04-20] MEDS: PROTONIX PO SCH (09:49)
[2017-04-20] MEDS: ELIQUIS PO SCH ×2 (09:53→21:42)
[2017-04-20] MEDS: ZANAFLEX PO SCH ×2 (09:53→21:44)
[2017-04-20] MEDS ORDERED: LEVAQUIN 750MG/150ML 750 MG/150 ML BAG IV SCH (10:00)
[2017-04-20 11:20] LABS: Hematocrit 39.7 % (30.3-42.9); Hemoglobin 13.3 gm/dl (10.1-14.3); Mean Corpuscular HGB Conc 34 % (30-34); Mean Corpuscular Hemoglobin 34 pg (28-32); Mean Corpuscular Volume 102 fl (79-97); Platelet Count 153 K/mm3 (140-440); Red Blood Count 3.89 M/mm3 (3.65-5.03); Red Cell Distribution Width 11.7 % (13.2-15.2); White Blood Count 6.3 K/mm3 (4.5-11.0)
[2017-04-20 12:00] LABS: Anion Gap 21 mmol/L; BUN/Creatinine Ratio 48; Blood Urea Nitrogen 38 mg/dL (7-17); Calcium 8.6 mg/dL (8.4-10.2); Carbon Dioxide 28 mmol/L (22-30); Chloride 95.3 mmol/L (98-107); Glucose 173 mg/dL (65-100); Potassium 4.4 mmol/L (3.6-5.0); Sodium 140 mmol/L (137-145)
[2017-04-20 12:12] LABS: Basophils % (Manual) 0 % (0.0-1.8); Blastocytes % (Manual) 0 %; Diff Status Complete; Eosinophils % (Manual) 0 % (0.0-4.3); Ovalocytes Few; Stomatocytes 3+; Tear Drop Cells Rare
[2017-04-20] MEDS: TYLENOL PO PRN (18:36)
[2017-04-20] MEDS: CYMBALTA PO SCH (21:41)
[2017-04-21] MEDS: DUONEB *Not for PRN Use IH SCH ×4 (02:23→21:20)
[2017-04-21] MEDS: CLEOCIN 600 MG/50 mL 600 MG/50 ML BAG IV SCH ×4 (05:29→23:54)
[2017-04-21] MEDS: TYLENOL PO PRN ×2 (05:29→14:16)
[2017-04-21] MEDS: CATAPRES PO SCH ×3 (05:30→23:55)
--- NOTE | 2017-04-21 07:52 | Progress Note ---
<PIYUSH CARRION - Last Filed: 04/21/17 11:24> Assessment and Plan Assessment and plan: Patient complains dyspnea on exertion; she denies chest pain. Labs and nursing notes reviewed. 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 Acute on chronic respiratory failure with hypoxia Patient oxygen saturation improved with 4LNC; currently SPO2 98%. No acute respiratory distress noted. Aggressive Nebulizers/Inhalers ABG when necessary Oxygen supplement Supportive care Acute COPD exacerbation Continue on Duoneb every 6 hours Continue IV steroid Solumedrol Continue on IV Levaquin Oxygen as necessary Hyperkalemia Continue to hold Lisinopril and start her on Norvasc Given lactulose We will repeat BMP Closely monitor electrolytes Diabetes mellitus Accu-Chek before meals and at bedtime Sliding scale insulin/NovoLog ADA carbohydrate consistent diet Hypertensive urgency Continue home antihypertensive medications Closely monitor blood pressure Bilateral LE cellulitis Blood culture collected prior to antibiotic Follow blood cultures Continue on IV Clindamycin. Patient allergic to Zosyn and vancomycin Supportive care Morbid obesity Counseled about the importance of weight reduction Mild hyponatremia IV fluid that will correct it Closely monitor electrolytes DVT prophylaxis Martha Hospitalist Physical - Constitutional Vitals: Temp Pulse Resp BP Pulse Ox 98.7 F 115 H 18 158/73 92 04/20/17 21:58 04/21/17 05:30 04/20/17 21:58 04/21/17 05:30 04/20/17 21:58 General appearance: Present: no acute distress - EENT Eyes: Present: PERRL ENT: hearing intact - Neck Neck: Present: supple - Respiratory Respiratory effort: normal Respiratory: bilateral: CTA - Cardiovascular Rhythm: regular Heart Sounds: Present: S1 & S2 - Abdominal General gastrointestinal: soft, non-tender - Integumentary Integumentary: Present: clear, warm, dry - Psychiatric Psychiatric: appropriate mood/affect - Neurologic Neurologic: moves all extremities - Allied Health Allied health notes reviewed: nursing Results - Labs CBC & Chem 7: 04/20/17 10:13 04/20/17 10:13 Labs: Laboratory Last Values WBC 6.3 K/mm3 (4.5-11.0) 04/20/17 10:13 RBC 3.89 M/mm3 (3.65-5.03) 04/20/17 10:13 Hgb 13.3 gm/dl (10.1-14.3) 04/20/17 10:13 Hct 39.7 % (30.3-42.9) 04/20/17 10:13 MCV 102 fl (79-97) H 04/20/17 10:13 MCH 34 pg (28-32) H 04/20/17 10:13 MCHC 34 % (30-34) 04/20/17 10:13 RDW 11.7 % (13.2-15.2) L 04/20/17 10:13 Plt Count 153 K/mm3 (140-440) 04/20/17 10:13 Lymph % (Auto) 20.3 % (13.4-35.0) 04/19/17 05:27 [place] % (Auto) 6.3 % (0.0-7.3) 04/19/17 05:27 Eos % (Auto) 0.6 % (0.0-4.3) 04/19/17 05:27 Baso % (Auto) 0.7 % (0.0-1.8) 04/19/17 05:27 Lymph # 1.9 K/mm3 (1.2-5.4) 04/19/17 05:27 [place] # 0.6 K/mm3 (0.0-0.8) 04/19/17 05:27 Eos # 0.1 K/mm3 (0.0-0.4) 04/19/17 05:27 Baso # 0.1 K/mm3 (0.0-0.1) 04/19/17 05:27 Add Manual Diff Complete 04/20/17 10:13 Total Counted 100 04/20/17 10:13 Seg Neutrophils % 72.1 % (40.0-70.0) H 04/19/17 05:27 Seg Neuts % (Manual) 78.0 % (40.0-70.0) H 04/20/17 10:13 Band Neutrophils % 1.0 % 04/20/17 10:13 Lymphocytes % (Manual) 17.0 % (13.4-35.0) 04/20/17 10:13 Reactive Lymphs % (Man) 0 % 04/20/17 10:13 Monocytes % (Manual) 1.0 % (0.0-7.3) 04/20/17 10:13 Eosinophils % (Manual) 0 % (0.0-4.3) 04/20/17 10:13 Basophils % (Manual) 0 % (0.0-1.8) 04/20/17 10:13 Metamyelocytes % 3.0 % 04/20/17 10:13 Myelocytes % 0 % 04/20/17 10:13 Promyelocytes % 0 % 04/20/17 10:13 Blast Cells % 0 % 04/20/17 10:13 Nucleated RBC % Not Reportable 04/20/17 10:13 Seg Neutrophils # 6.8 K/mm3 (1.8-7.7) 04/19/17 05:27 Seg Neutrophils # Man 4.9 K/mm3 (1.8-7.7) 04/20/17 10:13 Band Neutrophils # 0.1 K/mm3 04/20/17 10:13 Lymphocytes # (Manual) 1.1 K/mm3 (1.2-5.4) L 04/20/17 10:13 Abs React Lymphs (Man) 0.0 K/mm3 04/20/17 10:13 Monocytes # (Manual) 0.1 K/mm3 (0.0-0.8) 04/20/17 10:13 Eosinophils # (Manual) 0.0 K/mm3 (0.0-0.4) 04/20/17 10:13 Basophils # (Manual) 0.0 K/mm3 (0.0-0.1) 04/20/17 10:13 Metamyelocytes # 0.2 K/mm3 04/20/17 10:13 Myelocytes # 0.0 K/mm3 04/20/17 10:13 Promyelocytes # 0.0 K/mm3 04/20/17 10:13 Blast Cells # 0.0 K/mm3 04/20/17 10:13 WBC Morphology Not Reportable 04/20/17 10:13 Hypersegmented Neuts Not Reportable 04/20/17 10:13 Hyposegmented Neuts Not Reportable 04/20/17 10:13 Hypogranular Neuts Not Reportable 04/20/17 10:13 Smudge Cells Not Reportable 04/20/17 10:13 Toxic Granulation Not Reportable 04/20/17 10:13 Toxic Vacuolation Not Reportable 04/20/17 10:13 Dohle Bodies Not Reportable 04/20/17 10:13 Pelger-Huet Anomaly Not Reportable 04/20/17 10:13 Tim Rods Not Reportable 04/20/17 10:13 Platelet Estimate Appears normal 04/20/17 10:13 Clumped Platelets Not Reportable 04/20/17 10:13 Plt Clumps, EDTA Not Reportable 04/20/17 10:13 Large Platelets Not Reportable 04/20/17 10:13 Giant Platelets Not Reportable 04/20/17 10:13 Platelet Satelliting Not Reportable 04/20/17 10:13 Plt Morphology Comment Not Reportable 04/20/17 10:13 RBC Morphology Not Reportable 04/20/17 10:13 Dimorphic RBCs Not Reportable 04/20/17 10:13 Polychromasia Not Reportable 04/20/17 10:13 Hypochromasia Not Reportable 04/20/17 10:13 Poikilocytosis Not Reportable 04/20/17 10:13 Anisocytosis Not Reportable 04/20/17 10:13 Microcytosis Not Reportable 04/20/17 10:13 Macrocytosis Not Reportable 04/20/17 10:13 Spherocytes Not Reportable 04/20/17 10:13 Pappenheimer Bodies Not Reportable 04/20/17 10:13 Sickle Cells Not Reportable 04/20/17 10:13 Target Cells Not Reportable 04/20/17 10:13 Tear Drop Cells Rare 04/20/17 10:13 Ovalocytes Few 04/20/17 10:13 Stomatocytes 3+ 04/20/17 10:13 Helmet Cells Not Reportable 04/20/17 10:13 [place] Bodies Not Reportable 04/20/17 10:13 [place] Rings Not Reportable 04/20/17 10:13 Pascual Cells Not Reportable 04/20/17 10:13 Bite Cells Not Reportable 04/20/17 10:13 Crenated Cell Not Reportable 04/20/17 10:13 Elliptocytes Not Reportable 04/20/17 10:13 Acanthocytes (Spur) Not Reportable 04/20/17 10:13 Rouleaux Not Reportable 04/20/17 10:13 Hemoglobin C Crystals Not Reportable 04/20/17 10:13 Schistocytes Not Reportable 04/20/17 10:13 Malaria parasites Not Reportable 04/20/17 10:13 Shayne Bodies Not Reportable 04/20/17 10:13 Hem Pathologist Commnt No 04/20/17 10:13 PT 15.1 Sec. (12.2-14.9) H 04/19/17 07:38 INR 1.13 (0.87-1.13) 04/19/17 07:38 APTT 26.8 Sec. (24.2-36.6) 04/19/17 07:38 POC ABG pH 7.340 (7.35-7.45) L 04/19/17 08:26 POC ABG pCO2 58.5 (35-45) H 04/19/17 08:26 POC ABG pO2 65 (80-105) L 04/19/17 08:26 POC ABG HCO3 31.6 04/19/17 08:26 POC ABG Total CO2 33 04/19/17 08:26 POC ABG O2 Sat 90 04/19/17 08:26 POC ABG Base Excess 6 04/19/17 08:26 FiO2 28 % 04/19/17 08:26 Sodium 140 mmol/L (137-145) 04/20/17 10:13 Potassium 4.4 mmol/L (3.6-5.0) 04/20/17 10:13 Chloride 95.3 mmol/L (98-107) L 04/20/17 10:13 Carbon Dioxide 28 mmol/L (22-30) 04/20/17 10:13 Anion Gap 21 mmol/L 04/20/17 10:13 BUN 38 mg/dL (7-17) H 04/20/17 10:13 Creatinine 0.8 mg/dL (0.7-1.2) D 04/20/17 10:13 Estimated GFR > 60 ml/min 04/20/17 10:13 BUN/Creatinine Ratio 48 % 04/20/17 10:13 Glucose 173 mg/dL (65-100) H 04/20/17 10:13 POC Glucose 109 (70-105) H 04/21/17 05:39 Lactic Acid 0.90 mmol/L (0.7-2.0) 04/19/17 07:01 Calcium 8.6 mg/dL (8.4-10.2) 04/20/17 10:13 Magnesium 2.00 mg/dL (1.7-2.3) 04/19/17 04:41 Total Bilirubin < 0.20 mg/dL (0.1-1.2) 04/19/17 04:41 AST 262 units/L (5-40) H 04/19/17 04:41 ALT 171 units/L (7-56) H 04/19/17 04:41 Alkaline Phosphatase 102 units/L (35-129) 04/19/17 04:41 Ammonia 51.0 umol/L (25-60) 04/19/17 07:01 Total Creatine Kinase 117 units/L (30-135) 04/19/17 07:25 CK-MB (CK-2) 4.5 ng/mL (0.0-4.0) H 04/19/17 07:25 CK-MB (CK-2) Rel Index 3.8 (0-4) 04/19/17 07:25 Troponin T 0.030 ng/mL (0.00-0.029) H 04/19/17 07:01 Total Protein 6.8 g/dL (6.3-8.2) 04/19/17 04:41 Albumin 4.1 g/dL (3.9-5) 04/19/17 04:41 Albumin/Globulin Ratio 1.4 % 04/19/17 04:41 Triglycerides 402 mg/dL (2-149) H 04/19/17 07:01 Cholesterol 183 mg/dL (50-199) 04/19/17 07:01 LDL Cholesterol Direct TNR 04/19/17 07:01 HDL Cholesterol 39 mg/dL (40-59) L 04/19/17 07:01 Cholesterol/HDL Ratio 4.69 % 04/19/17 07:01 TSH 0.733 mlU/mL (0.270-4.200) 04/19/17 05:27 Urine Color Yellow (Yellow) 04/19/17 04:37 Urine Turbidity Clear (Clear) 04/19/17 04:37 Urine pH 5.0 (5.0-7.0) 04/19/17 04:37 Ur Specific [place] 1.020 (1.003-1.030) 04/19/17 04:37 Urine Protein 100 mg/dl mg/dL (Negative) 04/19/17 04:37 Urine Glucose (UA) Neg mg/dL (Negative) 04/19/17 04:37 Urine Ketones Neg mg/dL (Negative) 04/19/17 04:37 Urine Blood Sm (Negative) 04/19/17 04:37 Urine Nitrite Neg (Negative) 04/19/17 04:37 Urine Bilirubin Neg (Negative) 04/19/17 04:37 Urine Urobilinogen < 2.0 mg/dL (<2.0) 04/19/17 04:37 Ur Leukocyte Esterase Neg (Negative) 04/19/17 04:37 Urine WBC (Auto) 2.0 /HPF (0.0-6.0) 04/19/17 04:37 Urine RBC (Auto) 1.0 /HPF (0.0-6.0) 04/19/17 04:37 U Epithel Cells (Auto) < 1.0 /HPF (0-13.0) 04/19/17 04:37 Urine Bacteria (Auto) 1+ /HPF (Negative) 04/19/17 04:37 Urine Mucus Few /HPF 04/19/17 04:37 Salicylates < 0.3 mg/dL (2.8-20.0) L 04/19/17 05:27 Urine Opiates Screen Presumptive positive 04/19/17 04:37 Urine Methadone Screen Presumptive negative 04/19/17 04:37 Acetaminophen < 15.0 ug/mL (10.0-30.0) 04/19/17 05:27 Ur Barbiturates Screen Presumptive negative 04/19/17 04:37 Phenytoin 1.6 ug/mL (10.0-20.0) L 04/19/17 05:27 Ur Phencyclidine Scrn Presumptive negative 04/19/17 04:37 Ur Amphetamines Screen Presumptive negative 04/19/17 04:37 U Benzodiazepines Scrn Presumptive negative 04/19/17 04:37 Urine Cocaine Screen Presumptive negative 04/19/17 04:37 U Marijuana (THC) Screen Presumptive negative 04/19/17 04:37 Drugs of Abuse Note Disclamer 04/19/17 04:37 Plasma/Serum Alcohol < 0.01 gm% (0-0.07) 04/19/17 05:27 <NORMAN GARCIA - Last Filed: 04/21/17 15:18> Assessment and Plan Assessment and plan: I saw and evaluated the patient. I agree with the findings and the plan of care as documented in the Nurse Practitioner's~note, with the following corrections and additions. Patient is depressed, no motivation, reports that everybody in her family state Will consult psych for evaluation and recommendations BRIDGET Leiva, out of bed to chair, ambulate as tolerated PT evaluation if unable to ambulate Possible discharge in 1-2 days if stable Hospitalist Physical - Constitutional Vitals: Temp Pulse Resp BP Pulse Ox 99.0 F 62 18 139/64 97 04/21/17 08:15 04/21/17 08:15 04/21/17 14:16 04/21/17 14:20 04/21/17 08:15 Results - Labs CBC & Chem 7: 04/20/17 10:13 04/20/17 10:13 Labs: Laboratory Last Values WBC 6.3 K/mm3 (4.5-11.0) 04/20/17 10:13 RBC 3.89 M/mm3 (3.65-5.03) 04/20/17 10:13 Hgb 13.3 gm/dl (10.1-14.3) 04/20/17 10:13 Hct 39.7 % (30.3-42.9) 04/20/17 10:13 MCV 102 fl (79-97) H 04/20/17 10:13 MCH 34 pg (28-32) H 04/20/17 10:13 MCHC 34 % (30-34) 04/20/17 10:13 RDW 11.7 % (13.2-15.2) L 04/20/17 10:13 Plt Count 153 K/mm3 (140-440) 04/20/17 10:13 Lymph % (Auto) 20.3 % (13.4-35.0) 04/19/17 05:27 [place] % (Auto) 6.3 % (0.0-7.3) 04/19/17 05:27 Eos % (Auto) 0.6 % (0.0-4.3) 04/19/17 05:27 Baso % (Auto) 0.7 % (0.0-1.8) 04/19/17 05:27 Lymph # 1.9 K/mm3 (1.2-5.4) 04/19/17 05:27 [place] # 0.6 K/mm3 (0.0-0.8) 04/19/17 05:27 Eos # 0.1 K/mm3 (0.0-0.4) 04/19/17 05:27 Baso # 0.1 K/mm3 (0.0-0.1) 04/19/17 05:27 Add Manual Diff Complete 04/20/17 10:13 Total Counted 100 04/20/17 10:13 Seg Neutrophils % 72.1 % (40.0-70.0) H 04/19/17 05:27 Seg Neuts % (Manual) 78.0 % (40.0-70.0) H 04/20/17 10:13 Band Neutrophils % 1.0 % 04/20/17 10:13 Lymphocytes % (Manual) 17.0 % (13.4-35.0) 04/20/17 10:13 Reactive Lymphs % (Man) 0 % 04/20/17 10:13 Monocytes % (Manual) 1.0 % (0.0-7.3) 04/20/17 10:13 Eosinophils % (Manual) 0 % (0.0-4.3) 04/20/17 10:13 Basophils % (Manual) 0 % (0.0-1.8) 04/20/17 10:13 Metamyelocytes % 3.0 % 04/20/17 10:13 Myelocytes % 0 % 04/20/17 10:13 Promyelocytes % 0 % 04/20/17 10:13 Blast Cells % 0 % 04/20/17 10:13 Nucleated RBC % Not Reportable 04/20/17 10:13 Seg Neutrophils # 6.8 K/mm3 (1.8-7.7) 04/19/17 05:27 Seg Neutrophils # Man 4.9 K/mm3 (1.8-7.7) 04/20/17 10:13 Band Neutrophils # 0.1 K/mm3 04/20/17 10:13 Lymphocytes # (Manual) 1.1 K/mm3 (1.2-5.4) L 04/20/17 10:13 Abs React Lymphs (Man) 0.0 K/mm3 04/20/17 10:13 Monocytes # (Manual) 0.1 K/mm3 (0.0-0.8) 04/20/17 10:13 Eosinophils # (Manual) 0.0 K/mm3 (0.0-0.4) 04/20/17 10:13 Basophils # (Manual) 0.0 K/mm3 (0.0-0.1) 04/20/17 10:13 Metamyelocytes # 0.2 K/mm3 04/20/17 10:13 Myelocytes # 0.0 K/mm3 04/20/17 10:13 Promyelocytes # 0.0 K/mm3 04/20/17 10:13 Blast Cells # 0.0 K/mm3 04/20/17 10:13 WBC Morphology Not Reportable 04/20/17 10:13 Hypersegmented Neuts Not Reportable 04/20/17 10:13 Hyposegmented Neuts Not Reportable 04/20/17 10:13 Hypogranular Neuts Not Reportable 04/20/17 10:13 Smudge Cells Not Reportable 04/20/17 10:13 Toxic Granulation Not Reportable 04/20/17 10:13 Toxic Vacuolation Not Reportable 04/20/17 10:13 Dohle Bodies Not Reportable 04/20/17 10:13 Pelger-Huet Anomaly Not Reportable 04/20/17 10:13 Tim Rods Not Reportable 04/20/17 10:13 Platelet Estimate Appears normal 04/20/17 10:13 Clumped Platelets Not Reportable 04/20/17 10:13 Plt Clumps, EDTA Not Reportable 04/20/17 10:13 Large Platelets Not Reportable 04/20/17 10:13 Giant Platelets Not Reportable 04/20/17 10:13 Platelet Satelliting Not Reportable 04/20/17 10:13 Plt Morphology Comment Not Reportable 04/20/17 10:13 RBC Morphology Not Reportable 04/20/17 10:13 Dimorphic RBCs Not Reportable 04/20/17 10:13 Polychromasia Not Reportable 04/20/17 10:13 Hypochromasia Not Reportable 04/20/17 10:13 Poikilocytosis Not Reportable 04/20/17 10:13 Anisocytosis Not Reportable 04/20/17 10:13 Microcytosis Not Reportable 04/20/17 10:13 Macrocytosis Not Reportable 04/20/17 10:13 Spherocytes Not Reportable 04/20/17 10:13 Pappenheimer Bodies Not Reportable 04/20/17 10:13 Sickle Cells Not Reportable 04/20/17 10:13 Target Cells Not Reportable 04/20/17 10:13 Tear Drop Cells Rare 04/20/17 10:13 Ovalocytes Few 04/20/17 10:13 Stomatocytes 3+ 04/20/17 10:13 Helmet Cells Not Reportable 04/20/17 10:13 [place] Bodies Not Reportable 04/20/17 10:13 [place] Rings Not Reportable 04/20/17 10:13 Pascual Cells Not Reportable 04/20/17 10:13 Bite Cells Not Reportable 04/20/17 10:13 Crenated Cell Not Reportable 04/20/17 10:13 Elliptocytes Not Reportable 04/20/17 10:13 Acanthocytes (Spur) Not Reportable 04/20/17 10:13 Rouleaux Not Reportable 04/20/17 10:13 Hemoglobin C Crystals Not Reportable 04/20/17 10:13 Schistocytes Not Reportable 04/20/17 10:13 Malaria parasites Not Reportable 04/20/17 10:13 Shayne Bodies Not Reportable 04/20/17 10:13 Hem Pathologist Commnt No 04/20/17 10:13 PT 15.1 Sec. (12.2-14.9) H 04/19/17 07:38 INR 1.13 (0.87-1.13) 04/19/17 07:38 APTT 26.8 Sec. (24.2-36.6) 04/19/17 07:38 POC ABG pH 7.340 (7.35-7.45) L 04/19/17 08:26 POC ABG pCO2 58.5 (35-45) H 04/19/17 08:26 POC ABG pO2 65 (80-105) L 04/19/17 08:26 POC ABG HCO3 31.6 04/19/17 08:26 POC ABG Total CO2 33 04/19/17 08:26 POC ABG O2 Sat 90 04/19/17 08:26 POC ABG Base Excess 6 04/19/17 08:26 FiO2 28 % 04/19/17 08:26 Sodium 140 mmol/L (137-145) 04/20/17 10:13 Potassium 4.4 mmol/L (3.6-5.0) 04/20/17 10:13 Chloride 95.3 mmol/L (98-107) L 04/20/17 10:13 Carbon Dioxide 28 mmol/L (22-30) 04/20/17 10:13 Anion Gap 21 mmol/L 04/20/17 10:13 BUN 38 mg/dL (7-17) H 04/20/17 10:13 Creatinine 0.8 mg/dL (0.7-1.2) D 04/20/17 10:13 Estimated GFR > 60 ml/min 04/20/17 10:13 BUN/Creatinine Ratio 48 % 04/20/17 10:13 Glucose 173 mg/dL (65-100) H 04/20/17 10:13 POC Glucose 112 (70-105) H 04/21/17 12:06 Lactic Acid 0.90 mmol/L (0.7-2.0) 04/19/17 07:01 Calcium 8.6 mg/dL (8.4-10.2) 04/20/17 10:13 Magnesium 2.00 mg/dL (1.7-2.3) 04/19/17 04:41 Total Bilirubin < 0.20 mg/dL (0.1-1.2) 04/19/17 04:41 AST 262 units/L (5-40) H 04/19/17 04:41 ALT 171 units/L (7-56) H 04/19/17 04:41 Alkaline Phosphatase 102 units/L (35-129) 04/19/17 04:41 Ammonia 51.0 umol/L (25-60) 04/19/17 07:01 Total Creatine Kinase 117 units/L (30-135) 04/19/17 07:25 CK-MB (CK-2) 4.5 ng/mL (0.0-4.0) H 04/19/17 07:25 CK-MB (CK-2) Rel Index 3.8 (0-4) 04/19/17 07:25 Troponin T 0.030 ng/mL (0.00-0.029) H 04/19/17 07:01 Total Protein 6.8 g/dL (6.3-8.2) 04/19/17 04:41 Albumin 4.1 g/dL (3.9-5) 04/19/17 04:41 Albumin/Globulin Ratio 1.4 % 04/19/17 04:41 Triglycerides 402 mg/dL (2-149) H 04/19/17 07:01 Cholesterol 183 mg/dL (50-199) 04/19/17 07:01 LDL Cholesterol Direct TNR 04/19/17 07:01 HDL Cholesterol 39 mg/dL (40-59) L 04/19/17 07:01 Cholesterol/HDL Ratio 4.69 % 04/19/17 07:01 TSH 0.733 mlU/mL (0.270-4.200) 04/19/17 05:27 Urine Color Yellow (Yellow) 04/19/17 04:37 Urine Turbidity Clear (Clear) 04/19/17 04:37 Urine pH 5.0 (5.0-7.0) 04/19/17 04:37 Ur Specific [place] 1.020 (1.003-1.030) 04/19/17 04:37 Urine Protein 100 mg/dl mg/dL (Negative) 04/19/17 04:37 Urine Glucose (UA) Neg mg/dL (Negative) 04/19/17 04:37 Urine Ketones Neg mg/dL (Negative) 04/19/17 04:37 Urine Blood Sm (Negative) 04/19/17 04:37 Urine Nitrite Neg (Negative) 04/19/17 04:37 Urine Bilirubin Neg (Negative) 04/19/17 04:37 Urine Urobilinogen < 2.0 mg/dL (<2.0) 04/19/17 04:37 Ur Leukocyte Esterase Neg (Negative) 04/19/17 04:37 Urine WBC (Auto) 2.0 /HPF (0.0-6.0) 04/19/17 04:37 Urine RBC (Auto) 1.0 /HPF (0.0-6.0) 04/19/17 04:37 U Epithel Cells (Auto) < 1.0 /HPF (0-13.0) 04/19/17 04:37 Urine Bacteria (Auto) 1+ /HPF (Negative) 04/19/17 04:37 Urine Mucus Few /HPF 04/19/17 04:37 Salicylates < 0.3 mg/dL (2.8-20.0) L 04/19/17 05:27 Urine Opiates Screen Presumptive positive 04/19/17 04:37 Urine Methadone Screen Presumptive negative 04/19/17 04:37 Acetaminophen < 15.0 ug/mL (10.0-30.0) 04/19/17 05:27 Ur Barbiturates Screen Presumptive negative 04/19/17 04:37 Phenytoin 1.6 ug/mL (10.0-20.0) L 04/19/17 05:27 Ur Phencyclidine Scrn Presumptive negative 04/19/17 04:37 Ur Amphetamines Screen Presumptive negative 04/19/17 04:37 U Benzodiazepines Scrn Presumptive negative 04/19/17 04:37 Urine Cocaine Screen Presumptive negative 04/19/17 04:37 U Marijuana (THC) Screen Presumptive negative 04/19/17 04:37 Drugs of Abuse Note Disclamer 04/19/17 04:37 Plasma/Serum Alcohol < 0.01 gm% (0-0.07) 04/19/17 05:27
[2017-04-21] MEDS: DILANTIN PO SCH ×3 (08:14→20:55)
[2017-04-21] MEDS: ATIVAN PO SCH ×3 (08:14→20:55)
[2017-04-21] MEDS ORDERED: APRESOLINE IV ONE (09:00)
[2017-04-21] MEDS: PROTONIX PO SCH (09:07)
[2017-04-21] MEDS: ZANAFLEX PO SCH ×2 (09:07→23:57)
[2017-04-21] MEDS: LOPRESSOR PO SCH ×2 (09:07→23:55)
[2017-04-21] MEDS: LASIX PO SCH (09:07)
[2017-04-21] MEDS: MS CONTIN ER PO SCH ×2 (09:08→23:54)
[2017-04-21] MEDS: ELIQUIS PO SCH ×2 (09:08→23:56)
[2017-04-21] MEDS: LEVAQUIN PO SCH (09:09)
[2017-04-21] MEDS: CYMBALTA PO SCH (23:55)
[2017-04-22] MEDS: DUONEB *Not for PRN Use IH SCH ×4 (02:50→21:14)
[2017-04-22] MEDS: CLEOCIN 600 MG/50 mL 600 MG/50 ML BAG IV SCH ×4 (06:43→23:19)
[2017-04-22] MEDS: CATAPRES PO SCH ×3 (06:44→22:16)
[2017-04-22] MEDS: ATIVAN PO SCH ×3 (08:02→20:47)
[2017-04-22] MEDS: DILANTIN PO SCH ×3 (08:02→20:47)
--- NOTE | 2017-04-22 08:11 | Progress Note ---
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 Acute on chronic respiratory failure with hypoxia Patient oxygen saturation improved with 4LNC; currently SPO2 98%. No acute respiratory distress noted. Aggressive Nebulizers/Inhalers ABG when necessary Oxygen supplement Supportive care Acute COPD exacerbation Continue on Duoneb every 6 hours Wean IV steroid Solumedrol Continue on IV Levaquin Oxygen as necessary Hyperkalemia Continue to hold Lisinopril and start her on Norvasc Given lactulose We will repeat BMP Closely monitor electrolytes Diabetes mellitus Accu-Chek before meals and at bedtime Sliding scale insulin/NovoLog ADA carbohydrate consistent diet Hypertensive urgency Continue home antihypertensive medications Closely monitor blood pressure Bilateral LE cellulitis Blood culture collected prior to antibiotic Follow blood cultures Continue on IV Clindamycin. Patient allergic to Zosyn and vancomycin Supportive care Morbid obesity Counseled about the importance of weight reduction Mild hyponatremia IV fluid that will correct it Closely monitor electrolytes Depression Lives alone Mental health consult DVT prophylaxis Lovenox History Interval history: Patient denies having pain at present time. labs and nursing reviewed. Hospitalist Physical - Constitutional Vitals: Temp Pulse Resp BP Pulse Ox 97.4 F L 60 20 150/70 93 04/21/17 21:43 04/22/17 06:44 04/21/17 23:54 04/22/17 06:44 04/21/17 21:43 General appearance: Present: no acute distress - EENT Eyes: Present: PERRL ENT: hearing intact - Neck Neck: Present: supple - Respiratory Respiratory effort: normal Respiratory: bilateral: wheezing (mild) - Cardiovascular Rhythm: regular Heart Sounds: Present: S1 & S2 - Abdominal General gastrointestinal: soft, non-tender - Integumentary Integumentary: Present: clear, warm, dry - Psychiatric Psychiatric: appropriate mood/affect - Neurologic Neurologic: moves all extremities - Allied Health Allied health notes reviewed: nursing Results - Labs CBC & Chem 7: 04/20/17 10:13 04/20/17 10:13 Labs: Laboratory Last Values WBC 6.3 K/mm3 (4.5-11.0) 04/20/17 10:13 RBC 3.89 M/mm3 (3.65-5.03) 04/20/17 10:13 Hgb 13.3 gm/dl (10.1-14.3) 04/20/17 10:13 Hct 39.7 % (30.3-42.9) 04/20/17 10:13 MCV 102 fl (79-97) H 04/20/17 10:13 MCH 34 pg (28-32) H 04/20/17 10:13 MCHC 34 % (30-34) 04/20/17 10:13 RDW 11.7 % (13.2-15.2) L 04/20/17 10:13 Plt Count 153 K/mm3 (140-440) 04/20/17 10:13 Lymph % (Auto) 20.3 % (13.4-35.0) 04/19/17 05:27 [place] % (Auto) 6.3 % (0.0-7.3) 04/19/17 05:27 Eos % (Auto) 0.6 % (0.0-4.3) 04/19/17 05:27 Baso % (Auto) 0.7 % (0.0-1.8) 04/19/17 05:27 Lymph # 1.9 K/mm3 (1.2-5.4) 04/19/17 05:27 [place] # 0.6 K/mm3 (0.0-0.8) 04/19/17 05:27 Eos # 0.1 K/mm3 (0.0-0.4) 04/19/17 05:27 Baso # 0.1 K/mm3 (0.0-0.1) 04/19/17 05:27 Add Manual Diff Complete 04/20/17 10:13 Total Counted 100 04/20/17 10:13 Seg Neutrophils % 72.1 % (40.0-70.0) H 04/19/17 05:27 Seg Neuts % (Manual) 78.0 % (40.0-70.0) H 04/20/17 10:13 Band Neutrophils % 1.0 % 04/20/17 10:13 Lymphocytes % (Manual) 17.0 % (13.4-35.0) 04/20/17 10:13 Reactive Lymphs % (Man) 0 % 04/20/17 10:13 Monocytes % (Manual) 1.0 % (0.0-7.3) 04/20/17 10:13 Eosinophils % (Manual) 0 % (0.0-4.3) 04/20/17 10:13 Basophils % (Manual) 0 % (0.0-1.8) 04/20/17 10:13 Metamyelocytes % 3.0 % 04/20/17 10:13 Myelocytes % 0 % 04/20/17 10:13 Promyelocytes % 0 % 04/20/17 10:13 Blast Cells % 0 % 04/20/17 10:13 Nucleated RBC % Not Reportable 04/20/17 10:13 Seg Neutrophils # 6.8 K/mm3 (1.8-7.7) 04/19/17 05:27 Seg Neutrophils # Man 4.9 K/mm3 (1.8-7.7) 04/20/17 10:13 Band Neutrophils # 0.1 K/mm3 04/20/17 10:13 Lymphocytes # (Manual) 1.1 K/mm3 (1.2-5.4) L 04/20/17 10:13 Abs React Lymphs (Man) 0.0 K/mm3 04/20/17 10:13 Monocytes # (Manual) 0.1 K/mm3 (0.0-0.8) 04/20/17 10:13 Eosinophils # (Manual) 0.0 K/mm3 (0.0-0.4) 04/20/17 10:13 Basophils # (Manual) 0.0 K/mm3 (0.0-0.1) 04/20/17 10:13 Metamyelocytes # 0.2 K/mm3 04/20/17 10:13 Myelocytes # 0.0 K/mm3 04/20/17 10:13 Promyelocytes # 0.0 K/mm3 04/20/17 10:13 Blast Cells # 0.0 K/mm3 04/20/17 10:13 WBC Morphology Not Reportable 04/20/17 10:13 Hypersegmented Neuts Not Reportable 04/20/17 10:13 Hyposegmented Neuts Not Reportable 04/20/17 10:13 Hypogranular Neuts Not Reportable 04/20/17 10:13 Smudge Cells Not Reportable 04/20/17 10:13 Toxic Granulation Not Reportable 04/20/17 10:13 Toxic Vacuolation Not Reportable 04/20/17 10:13 Dohle Bodies Not Reportable 04/20/17 10:13 Pelger-Huet Anomaly Not Reportable 04/20/17 10:13 Tim Rods Not Reportable 04/20/17 10:13 Platelet Estimate Appears normal 04/20/17 10:13 Clumped Platelets Not Reportable 04/20/17 10:13 Plt Clumps, EDTA Not Reportable 04/20/17 10:13 Large Platelets Not Reportable 04/20/17 10:13 Giant Platelets Not Reportable 04/20/17 10:13 Platelet Satelliting Not Reportable 04/20/17 10:13 Plt Morphology Comment Not Reportable 04/20/17 10:13 RBC Morphology Not Reportable 04/20/17 10:13 Dimorphic RBCs Not Reportable 04/20/17 10:13 Polychromasia Not Reportable 04/20/17 10:13 Hypochromasia Not Reportable 04/20/17 10:13 Poikilocytosis Not Reportable 04/20/17 10:13 Anisocytosis Not Reportable 04/20/17 10:13 Microcytosis Not Reportable 04/20/17 10:13 Macrocytosis Not Reportable 04/20/17 10:13 Spherocytes Not Reportable 04/20/17 10:13 Pappenheimer Bodies Not Reportable 04/20/17 10:13 Sickle Cells Not Reportable 04/20/17 10:13 Target Cells Not Reportable 04/20/17 10:13 Tear Drop Cells Rare 04/20/17 10:13 Ovalocytes Few 04/20/17 10:13 Stomatocytes 3+ 04/20/17 10:13 Helmet Cells Not Reportable 04/20/17 10:13 Jones-[place]heatfield Bodies Not Reportable 04/20/17 10:13 Shirley Rings Not Reportable 04/20/17 10:13 [place] Cells Not Reportable 04/20/17 10:13 Bite Cells Not Reportable 04/20/17 10:13 Crenated Cell Not Reportable 04/20/17 10:13 Elliptocytes Not Reportable 04/20/17 10:13 Acanthocytes (Spur) Not Reportable 04/20/17 10:13 Rouleaux Not Reportable 04/20/17 10:13 Hemoglobin C Crystals Not Reportable 04/20/17 10:13 Schistocytes Not Reportable 04/20/17 10:13 Malaria parasites Not Reportable 04/20/17 10:13 Shayne Bodies Not Reportable 04/20/17 10:13 Hem Pathologist Commnt No 04/20/17 10:13 PT 15.1 Sec. (12.2-14.9) H 04/19/17 07:38 INR 1.13 (0.87-1.13) 04/19/17 07:38 APTT 26.8 Sec. (24.2-36.6) 04/19/17 07:38 POC ABG pH 7.340 (7.35-7.45) L 04/19/17 08:26 POC ABG pCO2 58.5 (35-45) H 04/19/17 08:26 POC ABG pO2 65 (80-105) L 04/19/17 08:26 POC ABG HCO3 31.6 04/19/17 08:26 POC ABG Total CO2 33 04/19/17 08:26 POC ABG O2 Sat 90 04/19/17 08:26 POC ABG Base Excess 6 04/19/17 08:26 FiO2 28 % 04/19/17 08:26 Sodium 140 mmol/L (137-145) 04/20/17 10:13 Potassium 4.4 mmol/L (3.6-5.0) 04/20/17 10:13 Chloride 95.3 mmol/L (98-107) L 04/20/17 10:13 Carbon Dioxide 28 mmol/L (22-30) 04/20/17 10:13 Anion Gap 21 mmol/L 04/20/17 10:13 BUN 38 mg/dL (7-17) H 04/20/17 10:13 Creatinine 0.8 mg/dL (0.7-1.2) D 04/20/17 10:13 Estimated GFR > 60 ml/min 04/20/17 10:13 BUN/Creatinine Ratio 48 % 04/20/17 10:13 Glucose 173 mg/dL (65-100) H 04/20/17 10:13 POC Glucose 93 (70-105) 04/22/17 05:32 Lactic Acid 0.90 mmol/L (0.7-2.0) 04/19/17 07:01 Calcium 8.6 mg/dL (8.4-10.2) 04/20/17 10:13 Magnesium 2.00 mg/dL (1.7-2.3) 04/19/17 04:41 Total Bilirubin < 0.20 mg/dL (0.1-1.2) 04/19/17 04:41 AST 262 units/L (5-40) H 04/19/17 04:41 ALT 171 units/L (7-56) H 04/19/17 04:41 Alkaline Phosphatase 102 units/L (35-129) 04/19/17 04:41 Ammonia 51.0 umol/L (25-60) 04/19/17 07:01 Total Creatine Kinase 117 units/L (30-135) 04/19/17 07:25 CK-MB (CK-2) 4.5 ng/mL (0.0-4.0) H 04/19/17 07:25 CK-MB (CK-2) Rel Index 3.8 (0-4) 04/19/17 07:25 Troponin T 0.030 ng/mL (0.00-0.029) H 04/19/17 07:01 Total Protein 6.8 g/dL (6.3-8.2) 04/19/17 04:41 Albumin 4.1 g/dL (3.9-5) 04/19/17 04:41 Albumin/Globulin Ratio 1.4 % 04/19/17 04:41 Triglycerides 402 mg/dL (2-149) H 04/19/17 07:01 Cholesterol 183 mg/dL (50-199) 04/19/17 07:01 LDL Cholesterol Direct TNR 04/19/17 07:01 HDL Cholesterol 39 mg/dL (40-59) L 04/19/17 07:01 Cholesterol/HDL Ratio 4.69 % 04/19/17 07:01 TSH 0.733 mlU/mL (0.270-4.200) 04/19/17 05:27 Urine Color Yellow (Yellow) 04/19/17 04:37 Urine Turbidity Clear (Clear) 04/19/17 04:37 Urine pH 5.0 (5.0-7.0) 04/19/17 04:37 Ur Specific [place] 1.020 (1.003-1.030) 04/19/17 04:37 Urine Protein 100 mg/dl mg/dL (Negative) 04/19/17 04:37 Urine Glucose (UA) Neg mg/dL (Negative) 04/19/17 04:37 Urine Ketones Neg mg/dL (Negative) 04/19/17 04:37 Urine Blood Sm (Negative) 04/19/17 04:37 Urine Nitrite Neg (Negative) 04/19/17 04:37 Urine Bilirubin Neg (Negative) 04/19/17 04:37 Urine Urobilinogen < 2.0 mg/dL (<2.0) 04/19/17 04:37 Ur Leukocyte Esterase Neg (Negative) 04/19/17 04:37 Urine WBC (Auto) 2.0 /HPF (0.0-6.0) 04/19/17 04:37 Urine RBC (Auto) 1.0 /HPF (0.0-6.0) 04/19/17 04:37 U Epithel Cells (Auto) < 1.0 /HPF (0-13.0) 04/19/17 04:37 Urine Bacteria (Auto) 1+ /HPF (Negative) 04/19/17 04:37 Urine Mucus Few /HPF 04/19/17 04:37 Salicylates < 0.3 mg/dL (2.8-20.0) L 04/19/17 05:27 Urine Opiates Screen Presumptive positive 04/19/17 04:37 Urine Methadone Screen Presumptive negative 04/19/17 04:37 Acetaminophen < 15.0 ug/mL (10.0-30.0) 04/19/17 05:27 Ur Barbiturates Screen Presumptive negative 04/19/17 04:37 Phenytoin 1.6 ug/mL (10.0-20.0) L 04/19/17 05:27 Ur Phencyclidine Scrn Presumptive negative 04/19/17 04:37 Ur Amphetamines Screen Presumptive negative 04/19/17 04:37 U Benzodiazepines Scrn Presumptive negative 04/19/17 04:37 Urine Cocaine Screen Presumptive negative 04/19/17 04:37 U Marijuana (THC) Screen Presumptive negative 04/19/17 04:37 Drugs of Abuse Note Disclamer 04/19/17 04:37 Plasma/Serum Alcohol < 0.01 gm% (0-0.07) 04/19/17 05:27 <NORMAN GARCIA - Last Filed: 04/22/17 18:29> Assessment and Plan Assessment and plan: I saw and evaluated the patient. I agree with the findings and the plan of care as documented in the Nurse Practitioner's~note, with the following corrections and additions. Follow psych evaluation and recommendations Possible discharge in 1-2 days if stable Plan of care is reviewed with the patient Wound care evaluation and recommendations noted Hospitalist Physical - Constitutional Vitals: Temp Pulse Resp BP Pulse Ox 98.4 F 67 22 140/83 96 04/22/17 16:17 04/22/17 14:20 04/22/17 16:17 04/22/17 16:17 04/22/17 08:08 Results - Labs CBC & Chem 7: 04/20/17 10:13 04/20/17 10:13 Labs: Laboratory Last Values WBC 6.3 K/mm3 (4.5-11.0) 04/20/17 10:13 RBC 3.89 M/mm3 (3.65-5.03) 04/20/17 10:13 Hgb 13.3 gm/dl (10.1-14.3) 04/20/17 10:13 Hct 39.7 % (30.3-42.9) 04/20/17 10:13 MCV 102 fl (79-97) H 04/20/17 10:13 MCH 34 pg (28-32) H 04/20/17 10:13 MCHC 34 % (30-34) 04/20/17 10:13 RDW 11.7 % (13.2-15.2) L 04/20/17 10:13 Plt Count 153 K/mm3 (140-440) 04/20/17 10:13 Lymph % (Auto) 20.3 % (13.4-35.0) 04/19/17 05:27 [place] % (Auto) 6.3 % (0.0-7.3) 04/19/17 05:27 Eos % (Auto) 0.6 % (0.0-4.3) 04/19/17 05:27 Baso % (Auto) 0.7 % (0.0-1.8) 04/19/17 05:27 Lymph # 1.9 K/mm3 (1.2-5.4) 04/19/17 05:27 [place] # 0.6 K/mm3 (0.0-0.8) 04/19/17 05:27 Eos # 0.1 K/mm3 (0.0-0.4) 04/19/17 05:27 Baso # 0.1 K/mm3 (0.0-0.1) 04/19/17 05:27 Add Manual Diff Complete 04/20/17 10:13 Total Counted 100 04/20/17 10:13 Seg Neutrophils % 72.1 % (40.0-70.0) H 04/19/17 05:27 Seg Neuts % (Manual) 78.0 % (40.0-70.0) H 04/20/17 10:13 Band Neutrophils % 1.0 % 04/20/17 10:13 Lymphocytes % (Manual) 17.0 % (13.4-35.0) 04/20/17 10:13 Reactive Lymphs % (Man) 0 % 04/20/17 10:13 Monocytes % (Manual) 1.0 % (0.0-7.3) 04/20/17 10:13 Eosinophils % (Manual) 0 % (0.0-4.3) 04/20/17 10:13 Basophils % (Manual) 0 % (0.0-1.8) 04/20/17 10:13 Metamyelocytes % 3.0 % 04/20/17 10:13 Myelocytes % 0 % 04/20/17 10:13 Promyelocytes % 0 % 04/20/17 10:13 Blast Cells % 0 % 04/20/17 10:13 Nucleated RBC % Not Reportable 04/20/17 10:13 Seg Neutrophils # 6.8 K/mm3 (1.8-7.7) 04/19/17 05:27 Seg Neutrophils # Man 4.9 K/mm3 (1.8-7.7) 04/20/17 10:13 Band Neutrophils # 0.1 K/mm3 04/20/17 10:13 Lymphocytes # (Manual) 1.1 K/mm3 (1.2-5.4) L 04/20/17 10:13 Abs React Lymphs (Man) 0.0 K/mm3 04/20/17 10:13 Monocytes # (Manual) 0.1 K/mm3 (0.0-0.8) 04/20/17 10:13 Eosinophils # (Manual) 0.0 K/mm3 (0.0-0.4) 04/20/17 10:13 Basophils # (Manual) 0.0 K/mm3 (0.0-0.1) 04/20/17 10:13 Metamyelocytes # 0.2 K/mm3 04/20/17 10:13 Myelocytes # 0.0 K/mm3 04/20/17 10:13 Promyelocytes # 0.0 K/mm3 04/20/17 10:13 Blast Cells # 0.0 K/mm3 04/20/17 10:13 WBC Morphology Not Reportable 04/20/17 10:13 Hypersegmented Neuts Not Reportable 04/20/17 10:13 Hyposegmented Neuts Not Reportable 04/20/17 10:13 Hypogranular Neuts Not Reportable 04/20/17 10:13 Smudge Cells Not Reportable 04/20/17 10:13 Toxic Granulation Not Reportable 04/20/17 10:13 Toxic Vacuolation Not Reportable 04/20/17 10:13 Dohle Bodies Not Reportable 04/20/17 10:13 Pelger-Huet Anomaly Not Reportable 04/20/17 10:13 Tim Rods Not Reportable 04/20/17 10:13 Platelet Estimate Appears normal 04/20/17 10:13 Clumped Platelets Not Reportable 04/20/17 10:13 Plt Clumps, EDTA Not Reportable 04/20/17 10:13 Large Platelets Not Reportable 04/20/17 10:13 Giant Platelets Not Reportable 04/20/17 10:13 Platelet Satelliting Not Reportable 04/20/17 10:13 Plt Morphology Comment Not Reportable 04/20/17 10:13 RBC Morphology Not Reportable 04/20/17 10:13 Dimorphic RBCs Not Reportable 04/20/17 10:13 Polychromasia Not Reportable 04/20/17 10:13 Hypochromasia Not Reportable 04/20/17 10:13 Poikilocytosis Not Reportable 04/20/17 10:13 Anisocytosis Not Reportable 04/20/17 10:13 Microcytosis Not Reportable 04/20/17 10:13 Macrocytosis Not Reportable 04/20/17 10:13 Spherocytes Not Reportable 04/20/17 10:13 Pappenheimer Bodies Not Reportable 04/20/17 10:13 Sickle Cells Not Reportable 04/20/17 10:13 Target Cells Not Reportable 04/20/17 10:13 Tear Drop Cells Rare 04/20/17 10:13 Ovalocytes Few 04/20/17 10:13 Stomatocytes 3+ 04/20/17 10:13 Helmet Cells Not Reportable 04/20/17 10:13 Jones-[place] Bodies Not Reportable 04/20/17 10:13 Shirley Rings Not Reportable 04/20/17 10:13 [place] Cells Not Reportable 04/20/17 10:13 Bite Cells Not Reportable 04/20/17 10:13 Crenated Cell Not Reportable 04/20/17 10:13 Elliptocytes Not Reportable 04/20/17 10:13 Acanthocytes (Spur) Not Reportable 04/20/17 10:13 Rouleaux Not Reportable 04/20/17 10:13 Hemoglobin C Crystals Not Reportable 04/20/17 10:13 Schistocytes Not Reportable 04/20/17 10:13 Malaria parasites Not Reportable 04/20/17 10:13 Shayne Bodies Not Reportable 04/20/17 10:13 Hem Pathologist Commnt No 04/20/17 10:13 PT 15.1 Sec. (12.2-14.9) H 04/19/17 07:38 INR 1.13 (0.87-1.13) 04/19/17 07:38 APTT 26.8 Sec. (24.2-36.6) 04/19/17 07:38 POC ABG pH 7.340 (7.35-7.45) L 04/19/17 08:26 POC ABG pCO2 58.5 (35-45) H 04/19/17 08:26 POC ABG pO2 65 (80-105) L 04/19/17 08:26 POC ABG HCO3 31.6 04/19/17 08:26 POC ABG Total CO2 33 04/19/17 08:26 POC ABG O2 Sat 90 04/19/17 08:26 POC ABG Base Excess 6 04/19/17 08:26 FiO2 28 % 04/19/17 08:26 Sodium 140 mmol/L (137-145) 04/20/17 10:13 Potassium 4.4 mmol/L (3.6-5.0) 04/20/17 10:13 Chloride 95.3 mmol/L (98-107) L 04/20/17 10:13 Carbon Dioxide 28 mmol/L (22-30) 04/20/17 10:13 Anion Gap 21 mmol/L 04/20/17 10:13 BUN 38 mg/dL (7-17) H 04/20/17 10:13 Creatinine 0.8 mg/dL (0.7-1.2) D 04/20/17 10:13 Estimated GFR > 60 ml/min 04/20/17 10:13 BUN/Creatinine Ratio 48 % 04/20/17 10:13 Glucose 173 mg/dL (65-100) H 04/20/17 10:13 POC Glucose 112 (70-105) H 04/22/17 16:25 Lactic Acid 0.90 mmol/L (0.7-2.0) 04/19/17 07:01 Calcium 8.6 mg/dL (8.4-10.2) 04/20/17 10:13 Magnesium 2.00 mg/dL (1.7-2.3) 04/19/17 04:41 Total Bilirubin < 0.20 mg/dL (0.1-1.2) 04/19/17 04:41 AST 262 units/L (5-40) H 04/19/17 04:41 ALT 171 units/L (7-56) H 04/19/17 04:41 Alkaline Phosphatase 102 units/L (35-129) 04/19/17 04:41 Ammonia 51.0 umol/L (25-60) 04/19/17 07:01 Total Creatine Kinase 117 units/L (30-135) 04/19/17 07:25 CK-MB (CK-2) 4.5 ng/mL (0.0-4.0) H 04/19/17 07:25 CK-MB (CK-2) Rel Index 3.8 (0-4) 04/19/17 07:25 Troponin T 0.030 ng/mL (0.00-0.029) H 04/19/17 07:01 Total Protein 6.8 g/dL (6.3-8.2) 04/19/17 04:41 Albumin 4.1 g/dL (3.9-5) 04/19/17 04:41 Albumin/Globulin Ratio 1.4 % 04/19/17 04:41 Triglycerides 402 mg/dL (2-149) H 04/19/17 07:01 Cholesterol 183 mg/dL (50-199) 04/19/17 07:01 LDL Cholesterol Direct TNR 04/19/17 07:01 HDL Cholesterol 39 mg/dL (40-59) L 04/19/17 07:01 Cholesterol/HDL Ratio 4.69 % 04/19/17 07:01 TSH 0.733 mlU/mL (0.270-4.200) 04/19/17 05:27 Urine Color Yellow (Yellow) 04/19/17 04:37 Urine Turbidity Clear (Clear) 04/19/17 04:37 Urine pH 5.0 (5.0-7.0) 04/19/17 04:37 Ur Specific [place] 1.020 (1.003-1.030) 04/19/17 04:37 Urine Protein 100 mg/dl mg/dL (Negative) 04/19/17 04:37 Urine Glucose (UA) Neg mg/dL (Negative) 04/19/17 04:37 Urine Ketones Neg mg/dL (Negative) 04/19/17 04:37 Urine Blood Sm (Negative) 04/19/17 04:37 Urine Nitrite Neg (Negative) 04/19/17 04:37 Urine Bilirubin Neg (Negative) 04/19/17 04:37 Urine Urobilinogen < 2.0 mg/dL (<2.0) 04/19/17 04:37 Ur Leukocyte Esterase Neg (Negative) 04/19/17 04:37 Urine WBC (Auto) 2.0 /HPF (0.0-6.0) 04/19/17 04:37 Urine RBC (Auto) 1.0 /HPF (0.0-6.0) 04/19/17 04:37 U Epithel Cells (Auto) < 1.0 /HPF (0-13.0) 04/19/17 04:37 Urine Bacteria (Auto) 1+ /HPF (Negative) 04/19/17 04:37 Urine Mucus Few /HPF 04/19/17 04:37 Salicylates < 0.3 mg/dL (2.8-20.0) L 04/19/17 05:27 Urine Opiates Screen Presumptive positive 04/19/17 04:37 Urine Methadone Screen Presumptive negative 04/19/17 04:37 Acetaminophen < 15.0 ug/mL (10.0-30.0) 04/19/17 05:27 Ur Barbiturates Screen Presumptive negative 04/19/17 04:37 Phenytoin 1.6 ug/mL (10.0-20.0) L 04/19/17 05:27 Ur Phencyclidine Scrn Presumptive negative 04/19/17 04:37 Ur Amphetamines Screen Presumptive negative 04/19/17 04:37 U Benzodiazepines Scrn Presumptive negative 04/19/17 04:37 Urine Cocaine Screen Presumptive negative 04/19/17 04:37 U Marijuana (THC) Screen Presumptive negative 04/19/17 04:37 Drugs of Abuse Note Disclamer 04/19/17 04:37 Plasma/Serum Alcohol < 0.01 gm% (0-0.07) 04/19/17 05:27
[2017-04-22] MEDS: ZANAFLEX PO SCH ×2 (10:41→22:15)
[2017-04-22] MEDS: ELIQUIS PO SCH ×2 (10:41→22:24)
[2017-04-22] MEDS: LEVAQUIN PO SCH (10:41)
[2017-04-22] MEDS: MS CONTIN ER PO SCH ×2 (10:41→22:15)
[2017-04-22] MEDS: PROTONIX PO SCH (10:41)
[2017-04-22] MEDS: LASIX PO SCH (10:42)
[2017-04-22] MEDS: LOPRESSOR PO SCH ×2 (10:42→22:17)
[2017-04-22] MEDS: TYLENOL PO PRN (16:07)
--- NOTE | 2017-04-22 20:02 | Consultation ---
History of Present Illness - Reason for Consult Consult date: 04/22/17 Reason for consult: Mental Health Evaluation Requesting physician: NORMAN GARCIA - Chief Complaint Chief complaint: "I miss my daughter" - History of Present Psychiatric Illness 51-year-old female to past smoking history of morbid obesity, CHF, COPD with O2 dependence, and CVA with residual right side deficits presents to the hospital with complaints of chest pain times several days. Psychiatry was consulted to assess the patient for psychosis. Today patient is calm and cooperative during the assessment. The patient has a mayo bear that she caresses often and stated that her daughter's ashes are inside of it. She stated that her daughter was born (stillborn) 10 yrs ago and she had her body cremated with the ashes being placed inside of the mayo bear. The stitch (opening) was confirmed, patient isn't delusional. Per the staff, the patient may have been misunderstood about when her daughter was born and why the patient cling to the mayo bear. The patient has a hx of Bipolar DO, but denies any manic episodes or being depressed. She denies sleep disturbance and a poor appetite. She stated that she see Dr. Dejesus for outpatient psy services. She denies SI/HI's and AVH's. She denies recreational drug use and alcohol consumption (etoh). Medications and Allergies Allergies Allergy/AdvReac Type Severity Reaction Status Date / Time amoxicillin Allergy Rash Verified 07/29/15 12:33 carbamazepine [From Tegretol] Allergy Unknown Verified 04/04/14 14:26 cucumber Allergy Unknown Verified 09/14/16 12:28 divalproex sodium Allergy Unknown Verified 04/04/14 14:26 [From Depakote] levetiracetam [From Keppra] Allergy Unknown Verified 04/04/14 14:26 nitroglycerin Allergy Unknown Verified 07/14/13 22:26 [From Nitro-Bid] NSAIDS (Non-Steroidal Allergy Vomiting Verified 07/14/13 22:27 Anti-Inflamma Penicillins Allergy Swelling Verified 07/14/13 22:26 Sulfa (Sulfonamide Allergy Rash Verified 07/29/15 12:33 Antibiotics) tramadol HCl [From Ultram] Allergy Unknown Verified 04/04/14 14:26 vancomycin Allergy Vomiting Verified 07/14/13 22:26 pickles Allergy Unknown Uncoded 09/14/16 12:27 Home Medications Medication Instructions Recorded Confirmed Last Taken Type Apixaban [Eliquis] 5 mg PO BID 09/13/16 04/19/17 Unknown History Duloxetine HCl [Cymbalta] 60 mg PO QHS 09/13/16 04/19/17 Unknown History Ondansetron [Zofran ODT TAB] 4 mg PO TID #30 tab.rapdis 11/03/16 04/19/17 Unknown Rx Clonidine HCl [Catapres] 0.3 mg PO TID 04/19/17 04/19/17 Unknown History LORazepam [Ativan] 2 mg PO QID PRN 04/19/17 04/19/17 Unknown History Lisinopril [Zestril] 40 mg PO QDAY 04/19/17 04/19/17 Unknown History Mirtazapine [Remeron] 30 mg PO DAILY 04/19/17 04/19/17 Unknown History Morphine Sulfate [Morphabond ER] 15 mg PO Q12H 04/19/17 04/19/17 Unknown History Oxycodone HCl/Acetaminophen 1 each PO BID PRN 04/19/17 04/19/17 Unknown History [Percocet 10/325 mg] Phenytoin Sodium Extended 100 mg PO TID 04/19/17 04/19/17 Unknown History [Dilantin] Active Meds: Active Medications Acetaminophen (Tylenol) 650 mg PO Q4H PRN PRN Reason: Pain MILD(1-3)/Fever >100.5/[place] Last Admin: 04/22/17 16:07 Dose: 650 mg Albuterol (Proventil) 2.5 mg IH Q3HRT PRN PRN Reason: Shortness Of Breath Last Admin: 04/22/17 09:15 Dose: 2.5 mg Albuterol/Ipratropium (Duoneb *Not For Prn Use*) 1 ampul IH Q6HRT ASHLEY Last Admin: 04/22/17 14:10 Dose: 1 ampul Apixaban (Eliquis) 5 mg PO BID ASHLEY PRN Reason: Protocol Last Admin: 04/22/17 10:41 Dose: 5 mg Bisacodyl (Dulcolax) 10 mg DE QDAY PRN PRN Reason: Constipation unrelieved by MOM Clonidine HCl (Catapres) 0.3 mg PO Q8HR [facility] Last Admin: 04/22/17 14:08 Dose: 0.3 mg Duloxetine HCl (Cymbalta) 60 mg PO QHS [facility] Last Admin: 04/21/17 23:55 Dose: 60 mg Furosemide (Lasix) 20 mg PO QDAY [facility] Last Admin: 04/22/17 10:42 Dose: Not Given Clindamycin HCl (Cleocin 600 Mg/50 Ml) 600 mg in 50 mls @ 100 mls/hr IV Q6HR [facility] Last Admin: 04/22/17 17:54 Dose: 100 mls/hr Levofloxacin (Levaquin) 750 mg PO DAILY [facility] Last Admin: 04/22/17 10:41 Dose: 750 mg Lorazepam (Ativan) 2 mg PO TID [facility] Last Admin: 04/22/17 14:08 Dose: 2 mg Methylprednisolone Sodium Succinate (Solu-Medrol) 80 mg IV Q8HR [facility] Last Admin: 04/22/17 14:07 Dose: 80 mg Metoprolol Tartrate (Lopressor) 25 mg PO BID [facility] Last Admin: 04/22/17 10:42 Dose: 25 mg Morphine Sulfate (Ms Contin Er) 15 mg PO Q12HR [facility] Last Admin: 04/22/17 10:41 Dose: 15 mg Neomycin/Polymyxin/Bacitracin (Triple Antibiotic) 1 applic TP TID [facility] Stop: 04/29/17 14:01 Ondansetron HCl (Zofran) 4 mg IV Q8H PRN PRN Reason: N/V unrelieved by Reglan Pantoprazole Sodium (Protonix) 40 mg PO QDAY [facility] Last Admin: 04/22/17 10:41 Dose: 40 mg Phenytoin (Dilantin) 300 mg PO TID [facility] Last Admin: 04/22/17 14:08 Dose: 300 mg Temazepam (Restoril) 15 mg PO QHS PRN PRN Reason: Sleep Tizanidine HCl (Zanaflex) 4 mg PO BID [facility] Last Admin: 04/22/17 10:41 Dose: 4 mg Past psychiatric history - Past Medical History Past Medical History: diabetes, hypertension, seizures, stroke Past Surgical History: Other (Stent) - past Psychiatric treatment and history Psych: Bipolar, Depression psychiatric treatment history: Inpatient psy services 3 years ago. Denies a fam psy hx. Mental Status Exam - Vital signs Last Vital Signs Temp 98.4 F 04/22/17 16:17 Pulse 67 04/22/17 14:20 Resp 22 04/22/17 16:17 BP 140/83 04/22/17 16:17 Pulse Ox 96 04/22/17 08:08 - Exam Narrative exam: MSE: Appearance: calm, cooperative Behavior: regular eye contact Speech: regular rate and tone Mood: "okay" Affect: congruent to mood Thought Process: linear Thought Content: denies SI/HI's and AVH's Motor Activity: ambulatory Cognition: A/Ox3 Insight: appropriate Judgment: appropriate Results Result Diagrams: 04/20/17 10:13 04/20/17 10:13 Abnormal lab results 04/22/17 04/22/17 Range/Units 11:11 16:25 POC Glucose 118 H 112 H (70-105) All other labs normal. Assessment and Plan Assessment and plan: Impression: Hx of Bipolar DO. No overt psychosis seen with this patient. Today patient is calm and cooperative during the assessment. Recommendation/Plan: Patient can follow-up with her psychiatrist Dr Dejesus for outpatient psy services.
[2017-04-22] MEDS: TRIPLE ANTIBIOTIC TP SCH (20:47)
[2017-04-22] MEDS: CYMBALTA PO SCH (22:15)
[2017-04-23] MEDS: DUONEB *Not for PRN Use IH SCH ×3 (02:23→13:48)
[2017-04-23] MEDS: CATAPRES PO SCH ×2 (07:05→17:04)
[2017-04-23] MEDS: CLEOCIN 600 MG/50 mL 600 MG/50 ML BAG IV SCH ×3 (07:07→17:05)
[2017-04-23] MEDS: DILANTIN PO SCH ×2 (08:20→17:05)
[2017-04-23] MEDS: TRIPLE ANTIBIOTIC TP SCH ×2 (08:20→17:05)
[2017-04-23] MEDS: ATIVAN PO SCH ×2 (08:21→17:02)
[2017-04-23] MEDS: LOPRESSOR PO SCH (10:02)
[2017-04-23] MEDS: ZANAFLEX PO SCH (10:06)
[2017-04-23] MEDS: PROTONIX PO SCH (10:06)
[2017-04-23] MEDS: LEVAQUIN PO SCH (10:06)
[2017-04-23] MEDS: ELIQUIS PO SCH (10:06)
[2017-04-23] MEDS: LASIX PO SCH (10:07)
[2017-04-23] MEDS: MS CONTIN ER PO SCH (10:55)
--- NOTE | 2017-04-23 11:57 | Discharge Summary ---
Providers - Providers Date of Admission: 04/19/17 09:18 Date of discharge: 04/23/17 Attending physician: NORMAN GARCIA 04/21/17 09:49 Consult to Mental Health [CONS] Urgent Reason For Exam: Bizarre behavior Place consult to:: Notified:: YES Was contact made?: Yes If yes, spoke with:: CARLOS EDUARDO Time called:: 09:50 04/21/17 09:53 Physical Therapy Evaluation and Treat [CONS] Urgent Comment: Reason For Exam: gait eval 04/21/17 19:31 Consult to Wound/ET Nurse [CONS] Urgent Reason For Exam: wound eval Primary care physician: ISABELL WHITE MD Hospitalization Reason for admission: Worsening shortness of breath Condition: Stable Pertinent studies: Venous doppler LE: no DVT CXR : cardiomegaly Hospital course: 51-year-old female patient with past medical history of morbid obesity, CHF, COPD with O2 dependence, CVA with residual right side deficits, 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 Discharge Diagnosis and management: --Acute on chronic respiratory failure with hypoxia: Patient received oxygen ,nebulisers,steroids symptoms improved --Acute exacerbation of COPD on Duoneb ,tapering doses of steroids antibiotics --Hyperkalemia corrected --Diabetes mellitus Accu-Chek,SSC,ADA diet and insulin --Hypertensive urgency BP well controlled on antihypertensives --Bilateral LE cellulitis significantly improved with antibiotics and supportive care --Morbid obesity Counseled weight reduction --Depression No suicidal thoughts or ideation Evaluated by Psych. f/u Mental health up on discharge. Disposition: [id number] HOME [facility] Time spent for discharge: 32 min Core Measure Documentation - Palliative Care Palliative Care/ Comfort Measures: Not Applicable - Core Measures Any of the following diagnoses?: none Exam - Constitutional Vitals: Temp Pulse Resp BP Pulse Ox 98.2 F 59 L 22 149/68 95 04/23/17 07:21 04/23/17 10:02 04/23/17 10:55 04/23/17 10:02 04/23/17 07:21 General appearance: Present: no acute distress, well-nourished, obese - EENT Eyes: Present: PERRL, EOM intact - Neck Neck: Present: supple, normal ROM - Respiratory Respiratory effort: normal Respiratory: bilateral: diminished, negative: rales, rhonchi, wheezing - Cardiovascular Rhythm: regular Heart Sounds: Present: S1 & S2 - Extremities Extremities: no ischemia, No edema - Abdominal General gastrointestinal: Present: soft, non-tender, non-distended, normal bowel sounds - Integumentary Integumentary: Present: clear, warm - Musculoskeletal Musculoskeletal: strength equal bilaterally - Psychiatric Psychiatric: appropriate mood/affect, cooperative - Neurologic Neurologic: CNII-XII intact, moves all extremities Plan Activity: advance as tolerated Diet: low salt Additional Instructions: f/u behavioral health in 2-3 days Follow up with: ISABELL WHITE MD [Primary Care Provider] - 7 Days Prescriptions: Levofloxacin [Levaquin TAB] 750 mg PO DAILY #7 tablet Metoprolol [Lopressor TAB] 25 mg PO BID #60 tablet Neomycin/Bacitracin/Polymyxinb [Triple Antibiotic Ointment] 14 gm TP BID #1 oint...g. Prednisone [predniSONE 10 mg (6-Day Pack, 21 Tabs)] 10 mg PO .TAPER #1 tab.ds.pk
[2017-04-23] MEDS: TYLENOL PO PRN (17:03)
[2017-04-23 17:05] VITALS: BP 150/74
== END 2017-04-23 18:00 | disposition home health service (06) | DRG 602 ==
LOC: ED 03:34 → 3A 09:18
PROVIDERS: ADMIT Internal Medicine; ATTEND Internal Medicine
PROC: 4A033R1 Measurement of Arterial Saturation, Peripheral, Percutaneous Approach (ICD-10-PCS; principal; 2017-04-19)
DX: L03.116 Cellulitis of left lower limb (principal); J96.21 Acute and chronic respiratory failure with hypoxia; J44.1 Chronic obstructive pulmonary disease with (acute) exacerbation; Z68.44 Body mass index [BMI] 60.0-69.9, adult; E87.1 Hypo-osmolality and hyponatremia; L03.115 Cellulitis of right lower limb; E66.01 Morbid (severe) obesity due to excess calories; Z71.3 Dietary counseling and surveillance; I16.0 Hypertensive urgency; E87.5 Hyperkalemia; Z88.8 Allergy status to other drugs, medicaments and biological substances; Z91.018 Allergy to other foods; Z99.81 Dependence on supplemental oxygen; Z86.73 Personal history of transient ischemic attack (TIA), and cerebral infarction without residual deficits; G89.29 Other chronic pain; I25.10 Atherosclerotic heart disease of native coronary artery without angina pectoris; I11.0 Hypertensive heart disease with heart failure; I50.9 Heart failure, unspecified; F31.9 Bipolar disorder, unspecified
CPT/HCPCS: 36415; 71010; 80048; 80053; 80061; 80185; 80307; 80320; 81001; 82140; 82550; 82553; 82803; 82962; 83735; 84132; 84443; 84484; 85007; 85025; 85610; 85730; 87040; 93005; 93010; 93970; 94640; 94760; 96372; 96374; 96375; A6250; G0480; G8978-GP; G8979-GP; J0360; J1165; J1170; J1650; J1956; J2405; J2930; J3475; J7050

== ENCOUNTER 2017-08-22 12:53 | Emergency (ER) | payer MEDICARE ==
[2017-08-22] MEDS ORDERED: TYLENOL PO ONE (19:49)
--- NOTE | 2017-08-22 19:50 | Emergency Department Report ---
ED General Adult HPI - General Chief complaint: Extremity Problem,Nontraumatic Stated complaint: LEG PAIN Time Seen by Provider: 08/22/17 19:31 Source: patient, RN notes reviewed, old records reviewed Mode of arrival: Ambulatory Limitations: No Limitations - History of Present Illness Initial comments: This is a 52-year-old female. The patient has a past medical history of morbid obesity, reported congestive heart failure, upper extremity thrombosis, currently on systemic anticoagulation; eliquis Patient also on numerous chronic controlled substances, including Percocet and lorazepam Has a past medical history of congestive heart failure. She is sent to the ER by her registration specialist, Dr. Margarito Suresh, for evaluation of lower extremity swelling. Patient reports swelling has been going on for the past few days. It is chronic. It i is painful. The pain is sharp, and increases with palpation and range of motion. It decreases with Percocet. The patient has chronic shortness of breath which is not a new, worsened or different. Past medical history also includes bipolar disorder, super morbid obesity, seizure disorder. -: Gradual Location: left, right, lower extremity Quality: aching Consistency: constant Improves with: medication, rest Worsens with: movement Associated Symptoms: loss of appetite, malaise, shortness of breath (chronic). denies: confusion, chest pain, cough, diaphoresis, fever/chills, headaches, nausea/vomiting, rash, seizure, syncope - Related Data Home Medications Medication Instructions Recorded Confirmed Last Taken Duloxetine HCl [Cymbalta] 60 mg PO QHS 09/13/16 06/20/17 1 Day Ago ~06/19/17 Clonidine HCl [Catapres] 0.3 mg PO TID 04/19/17 06/20/17 1 Day Ago ~06/19/17 Lisinopril [Zestril] 40 mg PO QDAY 04/19/17 06/20/17 1 Day Ago ~06/19/17 Previous Rx's Medication Instructions Recorded Last Taken Type Metoprolol [Lopressor TAB] 25 mg PO BID #60 tablet 04/23/17 1 Day Ago Rx ~06/19/17 Apixaban [Eliquis] 5 mg PO Q12HR #60 tablet 06/23/17 Unknown Rx Cholestyramine (with Sugar) 4 gm PO QDAY #30 packet 06/23/17 Unknown Rx [Questran] Loperamide [Imodium] 2 mg PO Q2H PRN #30 capsule 06/23/17 Unknown Rx Pantoprazole [Protonix TAB] 40 mg PO QDAY #30 tablet 06/23/17 Unknown Rx Vancomycin HCl [Vancocin HCl] 125 mg PO QID #40 capsule 06/23/17 Unknown Rx Furosemide [Lasix TAB] 60 mg PO BID #60 tablet 08/22/17 Unknown Rx Allergies Allergy/AdvReac Type Severity Reaction Status Date / Time amoxicillin Allergy Rash Verified 06/13/17 14:23 carbamazepine [From Tegretol] Allergy Unknown Verified 06/13/17 14:23 cucumber Allergy Unknown Verified 06/13/17 14:23 divalproex sodium Allergy Unknown Verified 06/13/17 14:23 [From Depakote] enoxaparin Allergy Shortness Verified 06/17/17 03:17 of Breath levetiracetam [From Keppra] Allergy Unknown Verified 06/13/17 14:23 nitroglycerin Allergy Unknown Verified 06/13/17 14:23 [From Nitro-Bid] Penicillins Allergy Swelling Verified 06/13/17 14:23 Sulfa (Sulfonamide Allergy Rash Verified 06/13/17 14:23 Antibiotics) tramadol HCl [From Ultram] Allergy Unknown Verified 06/13/17 14:23 NSAIDS (Non-Steroidal AdvReac Vomiting Verified 06/17/17 11:48 Anti-Inflamma vancomycin AdvReac Vomiting Verified 06/17/17 11:48 pickles Allergy Unknown Uncoded 06/13/17 14:23 ED Review of Systems ROS: Stated complaint: LEG PAIN Other details as noted in HPI Comment: All other systems reviewed and negative ED Past Medical Hx - Past Medical History Hx Hypertension: Yes Hx CVA: Yes (5 strokes,left-side,no assistance For ADL's) Hx Congestive Heart Failure: Yes Hx Diabetes: Yes Hx Deep Vein Thrombosis: Yes Hx Renal Disease: Yes Hx Seizures: Yes Hx Asthma: Yes Hx COPD: Yes Additional medical history: Morbid Obesity,chronic pain, intubated,seizure disruptive device - Surgical History Hx Coronary Stent: Yes Hx Pacemaker: No Hx Internal Defibrillator: No Additional Surgical History: kidney, eye, tonsilectomy, seizure implant - Social History Smoking Status: Never Smoker Substance Use Type: None - Medications Home Medications: Home Medications Medication Instructions Recorded Confirmed Last Taken Type Duloxetine HCl [Cymbalta] 60 mg PO QHS 09/13/16 06/20/17 1 Day Ago History ~06/19/17 Clonidine HCl [Catapres] 0.3 mg PO TID 04/19/17 06/20/17 1 Day Ago History ~06/19/17 Lisinopril [Zestril] 40 mg PO QDAY 04/19/17 06/20/17 1 Day Ago History ~06/19/17 Metoprolol [Lopressor TAB] 25 mg PO BID #60 tablet 04/23/17 06/20/17 1 Day Ago Rx ~06/19/17 Apixaban [Eliquis] 5 mg PO Q12HR #60 tablet 06/23/17 Unknown Rx Cholestyramine (with Sugar) 4 gm PO QDAY #30 packet 06/23/17 Unknown Rx [Questran] Loperamide [Imodium] 2 mg PO Q2H PRN #30 capsule 06/23/17 Unknown Rx Pantoprazole [Protonix TAB] 40 mg PO QDAY #30 tablet 06/23/17 Unknown Rx Vancomycin HCl [Vancocin HCl] 125 mg PO QID #40 capsule 06/23/17 Unknown Rx Furosemide [Lasix TAB] 60 mg PO BID #60 tablet 08/22/17 Unknown Rx ED Physical Exam - General Limitations: No Limitations General appearance: alert, in no apparent distress, obese - Head Head exam: Present: atraumatic, normocephalic - Eye Eye exam: Present: normal appearance, EOMI - ENT ENT exam: Present: normal exam, normal orophraynx, mucous membranes moist, normal external ear exam - Neck Neck exam: Present: normal inspection, full ROM - Respiratory Respiratory exam: Present: normal lung sounds bilaterally, other (patient has very faint rales in the lower lung turner.). Absent: respiratory distress - Cardiovascular Cardiovascular Exam: Present: regular rate, normal rhythm, normal heart sounds. Absent: systolic murmur, diastolic murmur, rubs, gallop - GI/Abdominal GI/Abdominal exam: Present: soft, normal bowel sounds. Absent: distended, tenderness, guarding, rebound, rigid, pulsatile mass - Extremities Exam Extremities exam: Present: normal inspection, normal capillary refill, pedal edema, other (there is no palpable cord. There is a negative Homans sign. Compartments are soft. 2+ pulses noted in the bilateral upper and lower extremities. There is edema noted in the lower extremities) - Back Exam Back exam: Present: normal inspection, full ROM. Absent: paraspinal tenderness , vertebral tenderness - Neurological Exam Neurological exam: Present: alert, oriented X3, CN II-XII intact, other ( Extraocular movements intact. Tongue midline. No facial droop. Facial sensation intact to light touch in the V1, V2, V3 distribution bilaterally. 5 and 5 strength in 4 extremities.. Sensation is intact to light touch in 4 extremities.). Absent: motor sensory deficit - Psychiatric Psychiatric exam: Present: normal affect, normal mood - Skin Skin exam: Present: warm, dry, intact, normal color, other (chronic venous stasis changes noted in the bilateral lower extremities). Absent: rash ED Course Vital Signs 08/22/17 08/22/17 08/22/17 13:07 19:28 19:30 Temperature 97.6 F Pulse Rate 76 Respiratory 22 Rate Blood Pressure 139/74 139/75 147/76 O2 Sat by Pulse 93 94 92 Oximetry 08/22/17 08/22/17 08/22/17 19:35 19:45 20:01 Temperature Pulse Rate Respiratory 18 Rate Blood Pressure 147/76 125/55 O2 Sat by Pulse 98 95 Oximetry 08/22/17 08/22/17 08/22/17 20:15 20:30 20:45 Temperature Pulse Rate Respiratory Rate Blood Pressure 125/55 138/54 147/76 O2 Sat by Pulse 92 93 85 Oximetry 08/22/17 08/22/17 08/22/17 21:00 21:15 21:30 Temperature Pulse Rate Respiratory Rate Blood Pressure 111/74 125/55 116/64 O2 Sat by Pulse 95 97 81 L Oximetry 08/22/17 21:45 Temperature Pulse Rate Respiratory Rate Blood Pressure 142/50 O2 Sat by Pulse 96 Oximetry - EJ/Peripheral Line Neck R Time Out Performed: Yes Indications: nurses unable to establis Skin Cleansed in Sterile Fashion: Yes Size: 20 Dressing Placed: Tegaderm Patient Tolerated Procedure: well ED Medical Decision Making - Lab Data Result diagrams: 08/22/17 20:15 08/22/17 20:15 Vital Signs 08/22/17 08/22/17 08/22/17 13:07 19:28 19:30 Temperature 97.6 F Pulse Rate 76 Respiratory 22 Rate Blood Pressure 139/74 139/75 147/76 O2 Sat by Pulse 93 94 92 Oximetry 08/22/17 08/22/17 08/22/17 19:35 19:45 20:01 Temperature Pulse Rate Respiratory 18 Rate Blood Pressure 147/76 125/55 O2 Sat by Pulse 98 95 Oximetry 08/22/17 08/22/17 08/22/17 20:15 20:30 20:45 Temperature Pulse Rate Respiratory Rate Blood Pressure 125/55 138/54 147/76 O2 Sat by Pulse 92 93 85 Oximetry 08/22/17 08/22/17 08/22/17 21:00 21:15 21:30 Temperature Pulse Rate Respiratory Rate Blood Pressure 111/74 125/55 116/64 O2 Sat by Pulse 95 97 81 L Oximetry 08/22/17 21:45 Temperature Pulse Rate Respiratory Rate Blood Pressure 142/50 O2 Sat by Pulse 96 Oximetry Lab Results 08/22/17 08/22/17 08/22/17 Range/Units 20:15 20:15 20:15 WBC 6.0 (4.5-11.0) K/mm3 RBC 3.50 L (3.65-5.03) M/mm3 Hgb 12.0 (10.1-14.3) gm/dl Hct 35.0 (30.3-42.9) % MCV 100 H (79-97) fl MCH 34 H (28-32) pg MCHC 34 (30-34) % RDW 11.8 L (13.2-15.2) % Plt Count 189 (140-440) K/mm3 PT 18.0 H (12.2-14.9) Sec. INR 1.40 H (0.87-1.13) APTT 45.6 H (24.2-36.6) Sec. Sodium 137 (137-145) mmol/L Potassium 4.4 (3.6-5.0) mmol/L Chloride 96.2 L (98-107) mmol/L Carbon Dioxide 29 (22-30) mmol/L Anion Gap 16 mmol/L BUN 21 H (7-17) mg/dL Creatinine 1.1 (0.7-1.2) mg/dL Estimated GFR 53 ml/min BUN/Creatinine Ratio 19 % Glucose 103 H (65-100) mg/dL Calcium 8.6 (8.4-10.2) mg/dL Total Bilirubin 0.40 (0.1-1.2) mg/dL AST 20 (5-40) units/L ALT 10 (7-56) units/L Alkaline Phosphatase 58 (35-129) units/L Total Creatine Kinase 34 (30-135) units/L CK-MB (CK-2) < 1.0 (0.0-4.0) ng/mL CK-MB (CK-2) Rel Index 2.9 (0-4) NT-Pro-B Natriuret Pep 514.5 (0-900) pg/mL Total Protein 6.6 (6.3-8.2) g/dL Albumin 3.6 L (3.9-5) g/dL Albumin/Globulin Ratio 1.2 % Valproic Acid (50-100) ug/mL 08/22/17 Range/Units 20:15 WBC (4.5-11.0) K/mm3 RBC (3.65-5.03) M/mm3 Hgb (10.1-14.3) gm/dl Hct (30.3-42.9) % MCV (79-97) fl MCH (28-32) pg MCHC (30-34) % RDW (13.2-15.2) % Plt Count (140-440) K/mm3 PT (12.2-14.9) Sec. INR (0.87-1.13) APTT (24.2-36.6) Sec. Sodium (137-145) mmol/L Potassium (3.6-5.0) mmol/L Chloride (98-107) mmol/L Carbon Dioxide (22-30) mmol/L Anion Gap mmol/L BUN (7-17) mg/dL Creatinine (0.7-1.2) mg/dL Estimated GFR ml/min BUN/Creatinine Ratio % Glucose (65-100) mg/dL Calcium (8.4-10.2) mg/dL Total Bilirubin (0.1-1.2) mg/dL AST (5-40) units/L ALT (7-56) units/L Alkaline Phosphatase (35-129) units/L Total Creatine Kinase (30-135) units/L CK-MB (CK-2) (0.0-4.0) ng/mL CK-MB (CK-2) Rel Index (0-4) NT-Pro-B Natriuret Pep (0-900) pg/mL Total Protein (6.3-8.2) g/dL Albumin (3.9-5) g/dL Albumin/Globulin Ratio % Valproic Acid < 2.8 L (50-100) ug/mL - EKG Data -: EKG Interpreted by Ia - EKG Data When compared to previous EKG there are: no significant change - Radiology Data Radiology results: report reviewed, image reviewed Print Report Referring Physician: KWABENA DOMINGO Patient Name: MANDI ISRAEL Date of : 1965 Sex: Female Report Date: 2017-08-22 Report Status: Finalized Findings [facility] [address] [place] [address] XRay Report Signed Patient: MANDI ISRAEL MR#: [id number] : 1965 Acct:[id number] Age/Sex: 52 / F ADM Date: 08/22/17 Loc: ED Attending Dr: Ordering Physician: KWABENA DOMINGO MD Date of Service: 08/22/17 Procedure(s): XR chest 1V ap Accession Number(s): [id number] cc: KWABENA DOMINGO MD Fluoro Time In Minutes: FINAL REPORT EXAM: XR CHEST 1V AP HISTORY: lower ex swelling? chf TECHNIQUE: Portable upright chest PRIORS: Comparison is June 16, 2017 FINDINGS: Again identified is a neurostimulator device overlying left ritu thorax. Cardiac silhouette is prominent size. There is bilateral pulmonary vascular congestion interstitial. No pleural fluid collection seen. IMPRESSION: Probable mild cardiomegaly although incompletely assessed due to portable technique Pulmonary vascular prominence may reflect mild CHF Transcribed By: LOLI Dictated By: TRINITY LEE MD Electronically Authenticated By: TRINITY LEE MD Signed Date/Time: 08/22/172034 - Medical Decision Making Differential diagnosis, including the not limited to: Chronic lower extremity edema, lower extremity DVT, venous stasis changes, narcotic dependence Assessment and plan: 52-year-old female sent to the ER for evaluation by her registration specialist. The patient is speaking in full sentences, she does not have any hypoxia, and she is typically on home oxygen at baseline. Patient has been in the ER for hours without clinical decompensation. She reports taking Lasix 80 mg daily, and she further reports compliance with her systemic anticoagulation. Patient does not meet criteria for hospitalization, she appears to be slightly edematous in her lower extremities, but her lungs are essentially clear, with the exception of minimal rhonchi/rales. We will increase her Lasix to 60 mg twice daily, and I have also spoken to consult and cardiology for her group, Dr. Jurgen Taylor, who indicates that the patient is suitable to follow up as an outpatient as well, and that she could follow-up as an outpatient with his group in the next few days. Patient was quite preoccupied with acquisition of narcotic therapy, and the patient was informed that she did not require narcotic therapy acutely for her soft tissue pain. Given her compliance with her systemic anticoagulation, I think a recurrent DVT is very unlikely, the presented to the emergency room under my care after vascular lab had left, and therefore she can be ordered for an outpatient ultrasound and have this done as an outpatient. The patient's has poor mobility at baseline, and typically walks without a walker or a motorized scooter the patient's laboratory studies, physical exam findings were discussed with her route driver coin machines ( Dr Suresh) in addition to the discussion with on-call cardiology. Patient does not make criteria for admission right now. Critical care attestation.: If time is entered above; I have spent that time in minutes in the direct care of this critically ill patient, excluding procedure time. ED Disposition Clinical Impression: Obesity, Edema Disposition: DC- TO HOME OR SELFCARE Is pt being admited?: No Does the pt Need Aspirin: No Condition: Good Additional Instructions: Continue outpatient medications. Contact the phone number listed on the ultrasound acquisition form, and follow-up after 8:00 tomorrow morning for outpatient ultrasound. Follow-up with your automated weaver within the next 2-3 days. Return to the ER right away with new pain, worsened pain, migration of pain, fevers, chills, lethargy, irritability, projectile vomiting, change in mental status, confusion, inability to tolerate liquid feeds. Increase Lasix to 60 mg twice daily. Make certain to remain compliant with her anticoagulation. Prescriptions: Furosemide [Lasix TAB] 60 mg PO BID #60 tablet Referrals: KWABENA JUAN MD [Primary Care Provider] - 3-5 Days JURGEN TAYLOR MD [Staff Physician] - 3-5 Days
--- NOTE | 2017-08-22 20:39 | XRay Report ---
FINAL REPORT EXAM: XR CHEST 1V AP HISTORY: lower ex swelling? chf TECHNIQUE: Portable upright chest PRIORS: Comparison is June 16, 2017 FINDINGS: Again identified is a neurostimulator device overlying left ritu thorax. Cardiac silhouette is prominent size. There is bilateral pulmonary vascular congestion interstitial. No pleural fluid collection seen. IMPRESSION: Probable mild cardiomegaly although incompletely assessed due to portable technique Pulmonary vascular prominence may reflect mild CHF
[2017-08-22 20:41] LABS: Mean Corpuscular HGB Conc 34 % (30-34); Mean Corpuscular Hemoglobin 34 pg (28-32); Mean Corpuscular Volume 100 fl (79-97); Platelet Count 189 K/mm3 (140-440); Red Cell Distribution Width 11.8 % (13.2-15.2)
[2017-08-22] MEDS ORDERED: LASIX 80 MG in NACL 0.9% 50 ML IV ONE (20:51)
[2017-08-22 21:07] LABS: Alanine Aminotransferase 10 units/L (7-56); Albumin 3.6 g/dL (3.9-5); BUN/Creatinine Ratio 19; Blood Urea Nitrogen 21 mg/dL (7-17); Calcium 8.6 mg/dL (8.4-10.2); Hemolysis Index 37
[2017-08-22 21:14] LABS: Creatine Kinase MB < 1.0 ng/mL (0.0-4.0)
[2017-08-22 21:22] LABS: INR 1.4 (0.87-1.13)
[2017-08-22 21:23] LABS: Partial Thromboplastin Time 45.6 Sec. (24.2-36.6)
[2017-08-22] MEDS ORDERED: LASIX IV ONE (21:32)
[2017-08-23 00:03] VITALS: BP 135/59
== END 2017-08-23 00:06 | disposition home or self-care (01) ==
LOC: ED 12:53
DX: R60.9 Edema, unspecified (principal); E11.9 Type 2 diabetes mellitus without complications
CPT/HCPCS: 36415; 71045; 80053; 80164; 82550; 82553; 83880; 85027; 85610; 85730; 96374; 99284; J1940

== ENCOUNTER 2019-05-01 17:37 | Inpatient (IN) | payer MEDICARE ==
[2019-05-01 18:54] LABS: Bilirubin,Urine NEG (Negative); Blood,Urine NEG (Negative); Color,Urine Amber (Yellow); Mucus,Urine 1+ /HPF; Urobilinogen,Urine < 2.0 mg/dL (<2.0)
--- NOTE | 2019-05-01 18:55 | Emergency Department Report ---
ED General Adult HPI - General Chief complaint: Medical Clearance Stated complaint: HEADACHE/DIFFICULTY URINATING Time Seen by Provider: 05/01/19 18:27 Source: patient, EMS (EMS records not available at time of chart dictation.), RN notes reviewed, old records reviewed Mode of arrival: Stretcher Limitations: Physical Limitation - History of Present Illness Initial comments: Patient is a 53-year-old female. Past medical history includes morbid obesity, reported congestive heart failure, recent echocardiogram shows normal ejection fraction, upper extremity thrombosis, on systemic anticoagulation, eliquis On numerous chronic controlled substances, including Percocet and lorazepam. She may also have a history of seizures. Also has a history of bipolar and super morbid obesity. She is brought to the hospital by EMS for headache, urinary retention, and possible seizure. Patient states she was not able to urinate as of one day. This was relieved with placement of a Leiva catheter. She endorses throbbing global headache. The headache is not sudden or thunderclap in nature. There is no midline neck pain. She is not sure if she hit her head. She has chronic abdominal pain and chronic back pain. She states she takes lorazepam for seiz ure prevention, as she has multiple other seizure medication allergies/intolerances. She is making multiple requests for pain medicine -: Gradual, Sudden Location: back, abdomen Quality: aching Consistency: intermittent Improves with: medication, rest Worsens with: movement - Related Data Home Medications Medication Instructions Recorded Confirmed Last Taken Duloxetine HCl [Cymbalta] 60 mg PO QHS 09/13/16 06/20/17 1 Day Ago ~06/19/17 Clonidine HCl [Catapres] 0.3 mg PO TID 04/19/17 06/20/17 1 Day Ago ~06/19/17 Lisinopril [Zestril] 40 mg PO QDAY 04/19/17 06/20/17 1 Day Ago ~06/19/17 Previous Rx's Medication Instructions Recorded Last Taken Type Metoprolol [Lopressor TAB] 25 mg PO BID #60 tablet 04/23/17 1 Day Ago Rx ~06/19/17 Apixaban [Eliquis] 5 mg PO Q12HR #60 tablet 06/23/17 Unknown Rx Cholestyramine (with Sugar) 4 gm PO QDAY #30 packet 06/23/17 Unknown Rx [Questran] Loperamide [Imodium] 2 mg PO Q2H PRN #30 capsule 06/23/17 Unknown Rx Pantoprazole [Protonix TAB] 40 mg PO QDAY #30 tablet 06/23/17 Unknown Rx Vancomycin HCl [Vancocin HCl] 125 mg PO QID #40 capsule 06/23/17 Unknown Rx Furosemide [Lasix TAB] 60 mg PO BID #60 tablet 08/22/17 Unknown Rx Allergies Allergy/AdvReac Type Severity Reaction Status Date / Time amoxicillin Allergy Rash Verified 06/13/17 14:23 carbamazepine [From Tegretol] Allergy Unknown Verified 06/13/17 14:23 cucumber Allergy Unknown Verified 06/13/17 14:23 divalproex sodium Allergy Unknown Verified 06/13/17 14:23 [From Depakote] enoxaparin Allergy Shortness Verified 06/17/17 03:17 of Breath levetiracetam [From Keppra] Allergy Unknown Verified 06/13/17 14:23 nitroglycerin Allergy Unknown Verified 06/13/17 14:23 [From Nitro-Bid] Penicillins Allergy Swelling Verified 06/13/17 14:23 Sulfa (Sulfonamide Allergy Rash Verified 06/13/17 14:23 Antibiotics) tramadol HCl [From Ultram] Allergy Unknown Verified 06/13/17 14:23 NSAIDS (Non-Steroidal AdvReac Vomiting Verified 06/17/17 11:48 Anti-Inflamma vancomycin AdvReac Vomiting Verified 06/17/17 11:48 pickles Allergy Unknown Uncoded 06/13/17 14:23 ED Review of Systems ROS: Stated complaint: HEADACHE/DIFFICULTY URINATING Other details as noted in HPI Constitutional: fever (reports fever at home), malaise Eyes: denies: eye discharge ENT: congestion Respiratory: cough Cardiovascular: denies: syncope Gastrointestinal: abdominal pain Genitourinary: denies: dysuria Musculoskeletal: back pain, other Neurological: headache, weakness Hematological/Lymphatic: denies: easy bleeding ED Past Medical Hx - Past Medical History Hx Hypertension: Yes Hx CVA: Yes (5 strokes,left-side,no assistance For ADL's) Hx Congestive Heart Failure: Yes Hx Diabetes: Yes Hx Deep Vein Thrombosis: Yes Hx Renal Disease: Yes Hx Seizures: Yes Hx Asthma: Yes Hx COPD: Yes Additional medical history: Morbid Obesity,chronic pain, intubated,seizure disruptive device - Surgical History Hx Coronary Stent: Yes Hx Pacemaker: No Hx Internal Defibrillator: No Additional Surgical History: kidney, eye, tonsilectomy, seizure implant - Social History Smoking Status: Never Smoker - Medications Home Medications: Home Medications Medication Instructions Recorded Confirmed Last Taken Type Duloxetine HCl [Cymbalta] 60 mg PO QHS 09/13/16 06/20/17 1 Day Ago History ~06/19/17 Clonidine HCl [Catapres] 0.3 mg PO TID 04/19/17 06/20/17 1 Day Ago History ~06/19/17 Lisinopril [Zestril] 40 mg PO QDAY 04/19/17 06/20/17 1 Day Ago History ~06/19/17 Metoprolol [Lopressor TAB] 25 mg PO BID #60 tablet 04/23/17 06/20/17 1 Day Ago Rx ~06/19/17 Apixaban [Eliquis] 5 mg PO Q12HR #60 tablet 06/23/17 Unknown Rx Cholestyramine (with Sugar) 4 gm PO QDAY #30 packet 06/23/17 Unknown Rx [Questran] Loperamide [Imodium] 2 mg PO Q2H PRN #30 capsule 06/23/17 Unknown Rx Pantoprazole [Protonix TAB] 40 mg PO QDAY #30 tablet 06/23/17 Unknown Rx Vancomycin HCl [Vancocin HCl] 125 mg PO QID #40 capsule 06/23/17 Unknown Rx Furosemide [Lasix TAB] 60 mg PO BID #60 tablet 08/22/17 Unknown Rx ED Physical Exam - General Limitations: Physical Limitation General appearance: alert, obese - Head Head exam: Present: atraumatic, normocephalic - Eye Eye exam: Present: normal appearance. Absent: nystagmus - ENT ENT exam: Present: normal orophraynx, mucous membranes moist, normal external ear exam - Neck Neck exam: Present: normal inspection, full ROM. Absent: tenderness, meningismus - Respiratory Respiratory exam: Present: rhonchi. Absent: wheezes, rales - Cardiovascular Cardiovascular Exam: Present: normal rhythm, tachycardia, normal heart sounds. Absent: systolic murmur, diastolic murmur, rubs, gallop - GI/Abdominal GI/Abdominal exam: Present: soft, tenderness. Absent: distended, guarding, rebound, rigid, pulsatile mass - Extremities Exam Extremities exam: Present: normal inspection, full ROM, other (2+ pulses noted in the bilateral upper and lower extremities. The pelvis is stable. There is no long bony tenderness. The muscular compartments are soft. There is no redness, pus, streaking or erythema.). Absent: pedal edema, calf tenderness - Back Exam Back exam: Present: normal inspection. Absent: tenderness, CVA tenderness (R), paraspinal tenderness, vertebral tenderness - Neurological Exam Neurological exam: Present: alert, other (there is no facial droop. The tongue is midline. Extraocular movements are intact bilaterally. Speaking in full sentences. Hearing is grossly intact. 5 out of 5 strength bilateral upper and lower extremities. Sensation is intact to light touch bilateral upper and lower extremities.) - Psychiatric Psychiatric exam: Present: anxious - Skin Skin exam: Present: warm, dry, intact, normal color. Absent: rash ED Course Vital Signs 05/01/19 05/01/19 05/01/19 19:01 19:02 19:03 Temperature 99.5 F 99.5 F Pulse Rate 107 H Respiratory 12 12 Rate Blood Pressure 111/36 [Right] O2 Sat by Pulse 95 95 Oximetry - Reevaluation(s) Reevaluation #1: 05/01/19 20:32 Differential diagnoses, including but not limited to: Seizure, pseudoseizure, intracranial hemorrhage, retroperitoneal hemorrhage, pneumonia, urinary tract infection, narcotic dependence, benzodiazepine dependence Assessment and plan: 53-year-old female who endorses multiple seizures, fever at home, urinary retention, acute on chronic back pain, acute on chronic abdominal pain, with multiple "allergies." Patient reports fever at home 102. In the emergency room, found to have focal pulmonary findings, hypoxia, x-ray the chest suggesting probable multi lobar pneumonia. She reports that she only takes Ativan for her seizures, as well as other seizure medications have numerous side effects. Her seizure medication allergies included a sensation of homicidality, suicidality, nonspecific shortness of breath. Patient in the emergency room found to meet systemic inflammatory response syndrome criteria, probable sepsis, secondary to tachycardia, hypoxia, renal insufficiency, and leukocytosis. She is morbidly obese, but her ideal body weight is calculated to be 54 kg--> 1640 cc normal saline As a third-generation cephalosporin, ceftriaxone is structurally dissimilar to amoxicillin and penicillin, and statistically unlikely to cause anaphylactic or anaphylactoid reaction.not a suitable quinolone/Levaquin candidate given history of seizure, and this medication may lower her seizure threshold. Patiently placed on fluids, supplemental oxygen, blood cultures will be drawn, IV fluids will be given, antibiotics will be given, she will be admitted to the medical service. Patient moving 4 extremities spontaneously, there is no midline spinal tenderness, she has downgoing plantar reflexes bilaterally, her exam is not consistent with epidural compression syndrome or epidural abscess. Noncontrast CT scan of the brain shows no bleed. CT scan abdomen and pelvis shows right lower lobe pneumonia. Hospital physician is paced to arrange admission Also found to have renal insufficiency. 05/01/19 20:51 Reevaluation #2: 05/01/19 21:35 The case is presented to the Hospital physician, Dr. Henao, who accepts the patient to his service Leiva catheter in place draining clear yellow urine. Patient can follow-up as an outpatient for this urinary retention. ED Medical Decision Making - Lab Data Result diagrams: 05/01/19 19:04 05/01/19 19:04 Vital Signs 05/01/19 05/01/19 05/01/19 19:01 19:02 19:03 Temperature 99.5 F 99.5 F Pulse Rate 107 H Respiratory 12 12 Rate Blood Pressure 111/36 [Right] O2 Sat by Pulse 95 95 Oximetry Lab Results 05/01/19 05/01/19 05/01/19 Range/Units 19:04 19:04 19:04 WBC 17.8 H (4.5-11.0) K/mm3 RBC 4.28 (3.65-5.03) M/mm3 Hgb 14.5 H (10.1-14.3) gm/dl Hct 42.6 (30.3-42.9) % MCV 100 H (79-97) fl MCH 34 H (28-32) pg MCHC 34 (30-34) % RDW 12.5 L (13.2-15.2) % Plt Count 131 L (140-440) K/mm3 PT 14.3 (12.2-14.9) Sec. INR 1.10 (0.87-1.13) Sodium 138 (137-145) mmol/L Potassium 4.4 (3.6-5.0) mmol/L Chloride 94.1 L (98-107) mmol/L Carbon Dioxide 27 (22-30) mmol/L Anion Gap 21 mmol/L BUN 34 H (7-17) mg/dL Creatinine 1.7 H (0.7-1.2) mg/dL Estimated GFR 32 ml/min BUN/Creatinine Ratio 20 % Glucose 99 (65-100) mg/dL Calcium 9.5 (8.4-10.2) mg/dL Magnesium 1.80 (1.7-2.3) mg/dL Total Bilirubin 0.40 (0.1-1.2) mg/dL AST 14 (5-40) units/L ALT 12 (7-56) units/L Alkaline Phosphatase 75 (35-129) units/L Total Creatine Kinase (30-135) units/L Troponin T < 0.010 (0.00-0.029) ng/mL NT-Pro-B Natriuret Pep (0-900) pg/mL Total Protein 7.4 (6.3-8.2) g/dL Albumin 3.4 L (3.9-5) g/dL Albumin/Globulin Ratio 0.9 % TSH (0.270-4.200) mlU/mL Urine Color (Yellow) Urine Turbidity (Clear) Urine pH (5.0-7.0) Ur Specific [place] (1.003-1.030) Urine Protein (Negative) mg/dL Urine Glucose (UA) (Negative) mg/dL Urine Ketones (Negative) mg/dL Urine Blood (Negative) Urine Nitrite (Negative) Urine Bilirubin (Negative) Urine Urobilinogen (<2.0) mg/dL Ur Leukocyte Esterase (Negative) Urine WBC (Auto) (0.0-6.0) /HPF Urine RBC (Auto) (0.0-6.0) /HPF U Epithel Cells (Auto) (0-13.0) /HPF Urine Mucus /HPF Salicylates (2.8-20.0) mg/dL Acetaminophen (10.0-30.0) ug/mL 05/01/19 05/01/19 05/01/19 Range/Units 19:04 19:04 19:04 WBC (4.5-11.0) K/mm3 RBC (3.65-5.03) M/mm3 Hgb (10.1-14.3) gm/dl Hct (30.3-42.9) % MCV (79-97) fl MCH (28-32) pg MCHC (30-34) % RDW (13.2-15.2) % Plt Count (140-440) K/mm3 PT (12.2-14.9) Sec. INR (0.87-1.13) Sodium (137-145) mmol/L Potassium (3.6-5.0) mmol/L Chloride (98-107) mmol/L Carbon Dioxide (22-30) mmol/L Anion Gap mmol/L BUN (7-17) mg/dL Creatinine (0.7-1.2) mg/dL Estimated GFR ml/min BUN/Creatinine Ratio % Glucose (65-100) mg/dL Calcium (8.4-10.2) mg/dL Magnesium (1.7-2.3) mg/dL Total Bilirubin (0.1-1.2) mg/dL AST (5-40) units/L ALT (7-56) units/L Alkaline Phosphatase (35-129) units/L Total Creatine Kinase 45 (30-135) units/L Troponin T (0.00-0.029) ng/mL NT-Pro-B Natriuret Pep 935.0 H (0-900) pg/mL Total Protein (6.3-8.2) g/dL Albumin (3.9-5) g/dL Albumin/Globulin Ratio % TSH 1.070 (0.270-4.200) mlU/mL Urine Color (Yellow) Urine Turbidity (Clear) Urine pH (5.0-7.0) Ur Specific [place] (1.003-1.030) Urine Protein (Negative) mg/dL Urine Glucose (UA) (Negative) mg/dL Urine Ketones (Negative) mg/dL Urine Blood (Negative) Urine Nitrite (Negative) Urine Bilirubin (Negative) Urine Urobilinogen (<2.0) mg/dL Ur Leukocyte Esterase (Negative) Urine WBC (Auto) (0.0-6.0) /HPF Urine RBC (Auto) (0.0-6.0) /HPF U Epithel Cells (Auto) (0-13.0) /HPF Urine Mucus /HPF Salicylates < 0.3 L (2.8-20.0) mg/dL Acetaminophen (10.0-30.0) ug/mL 12/24/19 12/24/19 Range/Units 19:04 Unknown WBC (4.5-11.0) K/mm3 RBC (3.65-5.03) M/mm3 Hgb (10.1-14.3) gm/dl Hct (30.3-42.9) % MCV (79-97) fl MCH (28-32) pg MCHC (30-34) % RDW (13.2-15.2) % Plt Count (140-440) K/mm3 PT (12.2-14.9) Sec. INR (0.87-1.13) Sodium (137-145) mmol/L Potassium (3.6-5.0) mmol/L Chloride (98-107) mmol/L Carbon Dioxide (22-30) mmol/L Anion Gap mmol/L BUN (7-17) mg/dL Creatinine (0.7-1.2) mg/dL Estimated GFR ml/min BUN/Creatinine Ratio % Glucose (65-100) mg/dL Calcium (8.4-10.2) mg/dL Magnesium (1.7-2.3) mg/dL Total Bilirubin (0.1-1.2) mg/dL AST (5-40) units/L ALT (7-56) units/L Alkaline Phosphatase (35-129) units/L Total Creatine Kinase (30-135) units/L Troponin T (0.00-0.029) ng/mL NT-Pro-B Natriuret Pep (0-900) pg/mL Total Protein (6.3-8.2) g/dL Albumin (3.9-5) g/dL Albumin/Globulin Ratio % TSH (0.270-4.200) mlU/mL Urine Color [place] (Yellow) Urine Turbidity Slightly-cloudy (Clear) Urine pH 5.0 (5.0-7.0) Ur Specific [place] 1.028 (1.003-1.030) Urine Protein 100 mg/dl (Negative) mg/dL Urine Glucose (UA) Neg (Negative) mg/dL Urine Ketones Neg (Negative) mg/dL Urine Blood Neg (Negative) Urine Nitrite Neg (Negative) Urine Bilirubin Neg (Negative) Urine Urobilinogen < 2.0 (<2.0) mg/dL Ur Leukocyte Esterase Neg (Negative) Urine WBC (Auto) 2.0 (0.0-6.0) /HPF Urine RBC (Auto) 3.0 (0.0-6.0) /HPF U Epithel Cells (Auto) 1.0 (0-13.0) /HPF Urine Mucus 1+ /HPF Salicylates (2.8-20.0) mg/dL Acetaminophen < 5.0 L (10.0-30.0) ug/mL - EKG Data -: EKG Interpreted by Fl Rate: tachycardia - EKG Data 05/01/19 20:53 The EKG shows sinus tachycardia, 105 bpm, normal axis, QTC 449 ms, there is low voltage, the EKG is abnormal, it is not consistent with ST elevation myocardial infarction. - Radiology Data Radiology results: report reviewed, image reviewed Print Report Referring Physician: KWABENA DOMINGO Patient Name: MANDI ISRAEL Date of : 1965 Sex: Female Report Date: 2019-05-01 Report Status: Finalized Findings [address] [address] XRay Report Signed Patient: MANDI ISRAEL MR#: [id number] 07 : 1965 Acct:[id number] Age/Sex: 53 / F ADM Date: 05/01/19 Loc: ED Attending Dr: Ordering Physician: KWABENA DOMINGO MD Date of Service: 05/01/19 Procedure(s): XR chest 1V ap Accession Number(s): [id number] cc: KWABENA DOMINGO MD Fluoro Time In Minutes: CHEST 1 VIEW INDICATION / CLINICAL INFORMATION: hypoxia rales. COMPARISON: 04/19/2017 FINDINGS: SUPPORT DEVICES: dynamometer tester projects over the left lateral hemithorax HEART / MEDIASTINUM: No significant abnormality. LUNGS / PLEURA: New patchy opacity in the axillary portion of the left upper lung. No pneumothorax. ADDITIONAL FINDINGS: No significant additional findings. IMPRESSION: 1. Acute process in the left upper lobe consistent with pneumonia. Signer Name: Palmer Pace MD Signed: 05/01/2019 8:17 PM Workstation Name: [id number] Transcribed By: MT Dictated By: Palmer Pace MD Electronically Authenticated By: Palmer Pace MD Signed Date/Time: 05/01/192016 Critical care attestation.: If time is entered above; I have spent that time in minutes in the direct care of this critically ill patient, excluding procedure time. ED Disposition Clinical Impression: KORI (acute kidney injury), SIRS (systemic inflammatory response syndrome), Back pain, Seizure disorder, Morbid obesity, Hypoxia, Obesity, Urinary retention Disposition: OP ADMIT IP TO THIS HOSP Is pt being admited?: Yes Condition: Serious
[2019-05-01 19:52] LABS: INR 1.1 (0.87-1.13)
[2019-05-01 20:00] LABS: Hematocrit 42.6 % (30.3-42.9); Hemoglobin 14.5 gm/dl (10.1-14.3); Mean Corpuscular HGB Conc 34 % (30-34); Mean Corpuscular Volume 100 fl (79-97); Red Blood Count 4.28 M/mm3 (3.65-5.03); Red Cell Distribution Width 12.5 % (13.2-15.2)
[2019-05-01 20:02] LABS: Alanine Aminotransferase 12 units/L (7-56); Albumin 3.4 g/dL (3.9-5); BUN/Creatinine Ratio 20; Blood Urea Nitrogen 34 mg/dL (7-17); Calcium 9.5 mg/dL (8.4-10.2); Hemolysis Index 23; Platelet Count 131 K/mm3 (140-440)
--- NOTE | 2019-05-01 20:22 | XRay Report ---
CHEST 1 VIEW INDICATION / CLINICAL INFORMATION: hypoxia rales. COMPARISON: 04/19/2017 FINDINGS: SUPPORT DEVICES: clinical specialist medical device projects over the left lateral hemithorax HEART / MEDIASTINUM: No significant abnormality. LUNGS / PLEURA: New patchy opacity in the axillary portion of the left upper lung. No pneumothorax. ADDITIONAL FINDINGS: No significant additional findings. IMPRESSION: 1. Acute process in the left upper lobe consistent with pneumonia. Signer Name: Palmer Pace MD Signed: 05/01/2019 8:17 PM Workstation Name: [id number]
[2019-05-01] MEDS ORDERED: cefTRIAXone/NS 1 GM/50 ML 1 GM/50 ML BAG IV ONE (20:31)
[2019-05-01] MEDS ORDERED: AZITHROMYCIN 500 MG in SODIUM CHLORIDE 0.9% 250ML 250 ML IV ONE (20:31)
[2019-05-01] MEDS ORDERED: SODIUM CHLORIDE 0.9% 100 ML IVPB IV STA (20:35)
--- NOTE | 2019-05-01 20:40 | Cat Scan Report ---
CT abdomen pelvis wo con INDICATION: back pain abd pain on eliquis. TECHNIQUE: All CT scans at this location are performed using the following dose modulation technique: Automated exposure control. CONTRAST: None. COMPARISON: None available. CT ABDOMEN: Unusual volume loss/consolidation right base.. Evaluation of the parenchymal organs demonstrates no suspicious lesion. A cyst at the upper pole of t he left kidney medially measures 5 cm. The remaining parenchymal organs are unremarkable. Negative for abdominal mass, fluid or inflammation. The bowel is not dilated or thickened. CT PELVIS: Negative for mass, fluid or inflammation. IMPRESSION: 1. Negative for obstruction, inflammation or hemorrhage at the abdomen. 2. Unusual consolidation right base. Recommend follow-up to clearing. Signer Name: Robb Still MD Signed: 05/01/2019 8:36 PM Workstation Name: [id number]
--- NOTE | 2019-05-01 20:42 | Cat Scan Report ---
CT head/brain wo con INDICATION: headache , 4 seizures, on eliquis. TECHNIQUE: All CT scans at this location are performed using the following dose modulation technique: Automated exposure control. CONTRAST: None. COMPARISON: None available. FINDINGS: The ventricular system is appropriate in size and configuration without midline shift. Nega tive for mass, stroke or hemorrhage. Imaged portions of the paranasal sinuses are clear. IMPRESSION: Negative CT brain without contrast. Signer Name: Robb Still MD Signed: 05/01/2019 8:38 PM Workstation Name: [id number]
[2019-05-01] MEDS ORDERED: ACETAMINOPHEN 325 MG/10.15 ML ORAL LIQD UNIT DOSE PO ONE (20:53)
[2019-05-01] MEDS ORDERED: MAGNESIUM HYDROXIDE (MOM) ORAL LIQD UDC PO PRN (22:25)
[2019-05-01] MEDS: ACETAMINOPHEN 325 MG TAB PO PRN (23:00)
--- NOTE | 2019-05-01 23:45 | History and Physical Report ---
History of Present Illness Date of examination: 05/01/19 Date of admission: 05/01/19 21:35 Chief complaint: Shortness of breath and cough History of present illness: 53-year-old white female was brought into the emergency room today by EMS with a complaint of headache, inability to urinate for 1 day, and possible seizure. She denies any fever or chills but she indicates she has been having some cough and shortness of breath. She denies any sick contacts and no recent travel. She has known history of chronic back pain for which she takes pain medication. Upon arrival in the emergency room she was found to be slightly hypoxic. Her work-up was significant for multilobar pneumonia. She was subsequently started on empiric IV antibiotics. Patient also had a Leiva catheter placed with good relief of her urinary retention. Past History Past Medical History: COPD, diabetes, DVT, hypertension, seizures, stroke (Cardiac stent placement in the past), other (History of chronic pain, bipolar disorder.) Past Surgical History: Other Social history: no significant social history Family history: no significant family history Medications and Allergies Allergies Allergy/AdvReac Type Severity Reaction Status Date / Time amoxicillin Allergy Rash Verified 06/13/17 14:23 carbamazepine [From Tegretol] Allergy Unknown Verified 06/13/17 14:23 cucumber Allergy Unknown Verified 06/13/17 14:23 divalproex sodium Allergy Unknown Verified 06/13/17 14:23 [From Depakote] enoxaparin Allergy Shortness Verified 06/17/17 03:17 of Breath levetiracetam [From Keppra] Allergy Unknown Verified 06/13/17 14:23 nitroglycerin Allergy Unknown Verified 06/13/17 14:23 [From Nitro-Bid] Penicillins Allergy Swelling Verified 06/13/17 14:23 Sulfa (Sulfonamide Allergy Rash Verified 06/13/17 14:23 Antibiotics) tramadol HCl [From Ultram] Allergy Unknown Verified 06/13/17 14:23 NSAIDS (Non-Steroidal AdvReac Vomiting Verified 06/17/17 11:48 Anti-Inflamma vancomycin AdvReac Vomiting Verified 06/17/17 11:48 pickles Allergy Unknown Uncoded 06/13/17 14:23 Home Medications Medication Instructions Recorded Confirmed Last Taken Type Duloxetine HCl [Cymbalta] 60 mg PO QHS 09/13/16 05/02/19 1 Day Ago History ~06/19/17 Clonidine HCl [Catapres] 0.3 mg PO TID 04/19/17 05/02/19 1 Day Ago History ~06/19/17 Lisinopril [Zestril] 40 mg PO QDAY 04/19/17 05/02/19 1 Day Ago History ~06/19/17 Metoprolol [Lopressor TAB] 25 mg PO BID #60 tablet 04/23/17 05/02/19 1 Day Ago Rx ~06/19/17 Apixaban [Eliquis] 5 mg PO Q12HR #60 tablet 06/23/17 05/02/19 Unknown Rx Cholestyramine (with Sugar) 4 gm PO QDAY #30 packet 06/23/17 05/02/19 Unknown Rx [Questran] Loperamide [Imodium] 2 mg PO Q2H PRN #30 capsule 06/23/17 05/02/19 Unknown Rx Pantoprazole [Protonix TAB] 40 mg PO QDAY #30 tablet 06/23/17 05/02/19 Unknown Rx Vancomycin HCl [Vancocin HCl] 125 mg PO QID #40 capsule 06/23/17 05/02/19 Unk nown Rx Furosemide [Lasix TAB] 60 mg PO BID #60 tablet 08/22/17 05/02/19 Unknown Rx Morphine ER [Ms Contin ER] 15 mg PO DAILY PRN 05/02/19 05/02/19 1 Day Ago History ~05/01/19 oxyCODONE /ACETAMINOPHEN [Percocet 1 tab PO Q4HR PRN 05/02/19 05/02/19 1 Day Ago History 5/325] ~05/01/19 Active Meds: Active Medications Acetaminophen (Tylenol) 650 mg PO Q4H PRN PRN Reason: Pain MILD(1-3)/Fever >100.5/HAMPTON Last Admin: 05/01/19 23:00 Dose: 650 mg Documented by: Sodium Chloride (Nacl 0.9% 1000 Ml) 1,000 mls @ 125 mls/hr IV DIRECT ASHLEY Ceftriaxone Sodium (Rocephin/Ns 2 Gm/100 Ml) 2 gm in 100 mls @ 200 mls/hr IV Q24HR ASHLEY; Protocol Azithromycin 500 mg/ Sodium (Chloride) 250 mls @ 250 mls/hr IV Q24HR ASHLEY; Protocol Magnesium Hydroxide (Milk Of Magnesia) 30 ml PO Q4H PRN PRN Reason: Constipation Ondansetron HCl (Zofran) 4 mg IV Q8H PRN PRN Reason: Nausea And Vomiting Sodium Chloride (Sodium Chloride Flush Syringe 10 Ml) 10 ml IV BID ASHLEY Sodium Chloride (Sodium Chloride Flush Syringe 10 Ml) 10 ml IV PRN PRN PRN Reason: LINE FLUSH Review of Systems Respiratory: cough, cough with sputum, shortness of breath Exam - Constitutional Vitals: Temp Pulse Resp BP Pulse Ox 99.5 F 104 H 18 99/84 93 05/01/19 19:02 05/01/19 19:46 05/01/19 19:46 05/01/19 23:30 05/01/19 23:30 General appearance: Present: no acute distress, well-nourished, obese - EENT Eyes: Present: PERRL, EOM intact ENT: hearing intact, clear oral mucosa, dentition normal - Neck Neck: Present: supple, normal ROM - Respiratory Respiratory effort: normal Respiratory: bilateral: diminished, rales - Cardiovascular Rhythm: regular Heart Sounds: Present: S1 & S2 - Extremities Extremities: no ischemia, pulses intact, pulses symmetrical, No edema, Full ROM Peripheral Pulses: within normal limits - Abdominal General gastrointestinal: Present: soft, non-tender, non-distended, normal bowel sounds - Integumentary Integumentary: Present: clear, warm, dry ( dressing over the wound on the right buttocks) - Musculoskeletal Musculoskeletal: strength equal bilaterally - Psychiatric Psychiatric: appropriate mood/affect, intact judgment & insight, cooperative - Neurologic Neurologic: CNII-XII intact, moves all extremities Results - Labs CBC & Chem 7: 05/01/19 19:04 05/01/19 19:04 Labs: Abnormal lab results 05/01/19 05/01/19 05/01/19 Range/Units 19:04 19:04 19:04 WBC 17.8 H (4.5-11.0) K/mm3 Hgb 14.5 H (10.1-14.3) gm/dl MCV 100 H (79-97) fl MCH 34 H (28-32) pg RDW 12.5 L (13.2-15.2) % Plt Count 131 L (140-440) K/mm3 Chloride 94.1 L (98-107) mmol/L BUN 34 H (7-17) mg/dL Creatinine 1.7 H (0.7-1.2) mg/dL NT-Pro-B Natriuret Pep 935.0 H (0-900) pg/mL Albumin 3.4 L (3.9-5) g/dL Salicylates (2.8-20.0) mg/dL Acetaminophen (10.0-30.0) ug/mL 05/01/19 05/01/19 Range/Units 19:04 19:04 WBC (4.5-11.0) K/mm3 Hgb (10.1-14.3) gm/dl MCV (79-97) fl MCH (28-32) pg RDW (13.2-15.2) % Plt Count (140-440) K/mm3 Chloride (98-107) mmol/L BUN (7-17) mg/dL Creatinine (0.7-1.2) mg/dL NT-Pro-B Natriuret Pep (0-900) pg/mL Albumin (3.9-5) g/dL Salicylates < 0.3 L (2.8-20.0) mg/dL Acetaminophen < 5.0 L (10.0-30.0) ug/mL Assessment and Plan - Patient Problems (1) Pneumonia Current Visit: Yes Status: Acute Plan to address problem: Patient placed on empiric IV antibiotics. We will await blood culture results. (2) Hypoxia Current Visit: Yes Status: Acute Plan to address problem: Probably secondary to the pneumonia. We will keep O2 saturation greater or equal to 92%. (3) Morbid obesity Current Visit: Yes Status: Chronic Plan to address problem: We will request dietary consult prior to discharge. (4) KORI (acute kidney injury) Current Visit: No Status: Acute Plan to address problem: Patient placed on IV fluid. Will monitor BUN and creatinine. (5) Wound of buttock Current Visit: Yes Status: Acute Plan to address problem: We will request wound care consults for evaluation and recommendation. (6) Type 2 diabetes mellitus Current Visit: No Status: Chronic Plan to address problem: We will monitor Accu-Cheks. (7) History of DVT (deep vein thrombosis) Current Visit: Yes Status: Acute Plan to address problem: Patient is on Eliquis . (8) DVT prophylaxis Current Visit: No Status: Acute Plan to address problem: She is currently on anticoagulation with Eliquis. (9) Full code status Current Visit: Yes Status: Acute
[2019-05-02] MEDS: SODIUM CHLORIDE 0.9% 1000 ML 1,000 ML IV SCH ×2 (03:11→13:04)
[2019-05-02] MEDS: ACETAMINOPHEN 325 MG TAB PO PRN (03:11)
[2019-05-02] MEDS ORDERED: MORPHINE 15 MG ER TAB PO PRN (05:37)
[2019-05-02 08:50] LABS: Basophils % (Auto) 0.3 % (0.0-1.8); Eosinophils # (Auto) 0.1 K/mm3 (0.0-0.4); Eosinophils % (Auto) 0.9 % (0.0-4.3); Hematocrit 34.9 % (30.3-42.9); Hemoglobin 11.6 gm/dl (10.1-14.3); Lymphocytes # (Auto) 1.8 K/mm3 (1.2-5.4); Lymphocytes % (Auto) 11.9 % (13.4-35.0); Mean Corpuscular HGB Conc 33 % (30-34); Mean Corpuscular Volume 102 fl (79-97); Monocytes % (Auto) 6.5 % (0.0-7.3); Platelet Count 173 K/mm3 (140-440); Red Blood Count 3.43 M/mm3 (3.65-5.03); Red Cell Distribution Width 12.5 % (13.2-15.2)
[2019-05-02 09:07] LABS: Calcium 8.8 mg/dL (8.4-10.2)
[2019-05-02] MEDS: PANTOPRAZOLE 40 MG TAB PO SCH (10:09)
[2019-05-02] MEDS: LISINOPRIL 40 MG TAB PO SCH (10:09)
[2019-05-02] MEDS: CHOLESTYRAMINE (WITH SUGAR) 4 GM PACKET PO SCH ×2 (10:10→10:17)
[2019-05-02] MEDS: cefTRIAXone/NS 2 GM/100 ML 2 GM/100 ML BAG IV SCH (10:10)
[2019-05-02] MEDS: METOPROLOL TARTRATE 25 MG TAB PO SCH ×2 (10:10→22:36)
[2019-05-02] MEDS: APIXABAN 5 MG TAB PO SCH ×2 (10:10→22:33)
[2019-05-02] MEDS: AZITHROMYCIN 500 MG in SODIUM CHLORIDE 0.9% 250ML 250 ML IV SCH (10:36)
[2019-05-02] MEDS ORDERED: LOPERAMIDE 2 MG CAP PO PRN (12:11)
--- NOTE | 2019-05-02 12:14 | Progress Note ---
Assessment and Plan Assessment and plan: 53-year-old white female was brought into the emergency room today by EMS with a complaint of headache, inability to urinate for 1 day, and possible seizure. She denies any fever or chills but she indicates she has been having some cough and shortness of breath. She denies any sick contacts and no recent travel. She has known history of chronic back pain for which she takes pain medication. Upon arrival in the emergency room she was found to be slightly hypoxic. Her work-up was significant for multilobar pneumonia. She was subsequently started on empiric IV antibiotics. Patient also had a Leiva catheter placed with good relief of her urinary retention. * Please discontinue Leiva today * Patient can follow with wound care clinic for continued management of wound * Please do not give any prescription for lorazepam on discharge patient just had 100 tablets refilled on 04/30/2019 according to her [employer] aware * Patient can be discharged in a.m. if no other fever noted * Patient will need wound care at home and also home health services (1) Pneumonia Current Visit: Yes Status: Acute Plan to address problem: Patient placed on empiric IV antibiotics. We will await blood culture results. (2) Hypoxia Current Visit: Yes Status: Acute Plan to address problem: Probably secondary to the pneumonia. We will keep O2 saturation greater or equal to 92%. (3) Morbid obesity Current Visit: Yes Status: Chronic Plan to address problem: We will request dietary consult prior to discharge. Extensive discussion with the patient about her weight status she verbalized understanding. (4) KORI (acute kidney injury) Current Visit: No Status: Acute Plan to address problem: Patient placed on IV fluid. Will monitor BUN and creatinine. (5) Wound of buttock Current Visit: Yes Status: Acute Plan to address problem: We will request wound care consults for evaluation and recommendation. (6) Type 2 diabetes mellitus Current Visit: No Status: Chronic Plan to address problem: We will monitor Accu-Cheks. (7) seizure disorder Patient is chronically on Eliquis as also seen on her [employer] aware. We will continue medication to avoid withdrawal syndrome. Aspiration precaution Discussed with nursing staff to monitor patient's mental status and level of alertness before giving medication. (8) history of DVT (deep vein thrombosis) Current Visit: Yes Status: Acute Plan to address problem: Patient is on Eliquis . (9) DVT prophylaxis Current Visit: No Status: Acute Plan to address problem: She is currently on anticoagulation with Eliquis. (10) Full code status Current Visit: Yes Status: Acute History Interval history: Patient seen and examined this morning still very lethargic appearing but although answering questions although with some slurred speech or forced speech rather. She reports that that is her normal speech pattern. I did discuss with her about the lorazepam she states that she takes it 2 mg every 8 hours as the nurse reported that the patient feels that she may have had a seizure overnight this was not documented by any other staff. On review of her [facility] for [place] it does show that on the of this month she did have of refill of lorazepam 100 tablets. She states that she is unable to take any other antiseizure medication due to interaction with Eliquis which I find strange. Hospitalist Physical - Physical exam Narrative exam: VITAL SIGNS: Reviewed. GENERAL: The patient appears normally developed, Vital signs as documented. HEAD: No signs of head trauma. EYES: Pupils are equal. Extraocular motions intact. EARS: Hearing grossly intact. MOUTH: Oropharynx is normal. NECK: No adenopathy, no JVD. CHEST: Chest with clear breath sounds bilaterally. No wheezes, rales, or rhonchi. CARDIAC: Regular rate and rhythm. S1 and S2, without murmurs, gallops, or rubs. VASCULAR: No Edema. Peripheral pulses normal and equal in all extremities. ABDOMEN: Soft, non tender and non distended. No rebound or guarding, and no masses palpated. Bowel Sounds normal. MUSCULOSKELETAL: Good range of motion of all major joints. Extremities without clubbing, cyanosis or edema. NEUROLOGIC EXAM: Awake but lethargic and oriented x 3 No focal sensory or strength deficits. Speech forced. Follows commands. PSYCHIATRIC: Mood normal. SKIN: Right buttock wound with dressing in place. Detail exam as documented in skin assessment - Constitutional Vitals: Temp Pulse Resp BP Pulse Ox 97.8 F 102 H 16 185/61 96 05/02/19 05:57 05/02/19 11:17 05/02/19 05:57 05/02/19 11:17 05/02/19 11:17 General appearance: Present: no acute distress, well-nourished, obese Results - Labs CBC & Chem 7: 05/02/19 07:04 05/02/19 07:04 Labs: Laboratory Last Values WBC 15.1 K/mm3 (4.5-11.0) H 05/02/19 07:04 RBC 3.43 M/mm3 (3.65-5.03) L 05/02/19 07:04 Hgb 11.6 gm/dl (10.1-14.3) 05/02/19 07:04 Hct 34.9 % (30.3-42.9) D 05/02/19 07:04 MCV 102 fl (79-97) H 05/02/19 07:04 MCH 34 pg (28-32) H 05/02/19 07:04 MCHC 33 % (30-34) 05/02/19 07:04 RDW 12.5 % (13.2-15.2) L 05/02/19 07:04 Plt Count 173 K/mm3 (140-440) 05/02/19 07:04 Lymph % (Auto) 11.9 % (13.4-35.0) L 05/02/19 07:04 Pepin % (Auto) 6.5 % (0.0-7.3) 05/02/19 07:04 Eos % (Auto) 0.9 % (0.0-4.3) 05/02/19 07:04 Baso % (Auto) 0.3 % (0.0-1.8) 05/02/19 07:04 Lymph # 1.8 K/mm3 (1.2-5.4) 05/02/19 07:04 Pepin # 1.0 K/mm3 (0.0-0.8) H 05/02/19 07:04 Eos # 0.1 K/mm3 (0.0-0.4) 05/02/19 07:04 Baso # 0.0 K/mm3 (0.0-0.1) 05/02/19 07:04 Seg Neutrophils % 80.4 % (40.0-70.0) H 05/02/19 07:04 Seg Neutrophils # 12.2 K/mm3 (1.8-7.7) H 05/02/19 07:04 PT 14.3 Sec. (12.2-14.9) 05/01/19 19:04 INR 1.10 (0.87-1.13) 05/01/19 19:04 Sodium 142 mmol/L (137-145) 05/02/19 07:04 Potassium 4.7 mmol/L (3.6-5.0) 05/02/19 07:04 Chloride 100.1 mmol/L (98-107) 05/02/19 07:04 Carbon Dioxide 25 mmol/L (22-30) 05/02/19 07:04 Anion Gap 22 mmol/L 05/02/19 07:04 BUN 28 mg/dL (7-17) H 05/02/19 07:04 Creatinine 1.2 mg/dL (0.7-1.2) 05/02/19 07:04 Estimated GFR 47 ml/min 05/02/19 07:04 BUN/Creatinine Ratio 23 % 05/02/19 07:04 Glucose 95 mg/dL (65-100) 05/02/19 07:04 Lactic Acid 0.70 mmol/L (0.7-2.0) 05/01/19 21:05 Calcium 8.8 mg/dL (8.4-10.2) 05/02/19 07:04 Magnesium 1.80 mg/dL (1.7-2.3) 05/01/19 19:04 Total Bilirubin 0.40 mg/dL (0.1-1.2) 05/01/19 19:04 AST 14 units/L (5-40) 05/01/19 19:04 ALT 12 units/L (7-56) 05/01/19 19:04 Alkaline Phosphatase 75 units/L (35-129) 05/01/19 19:04 Total Creatine Kinase 45 units/L (30-135) 05/01/19 19:04 Troponin T < 0.010 ng/mL (0.00-0.029) 05/01/19 19:04 NT-Pro-B Natriuret Pep 935.0 pg/mL (0-900) H 05/01/19 19:04 Total Protein 7.4 g/dL (6.3-8.2) 05/01/19 19:04 Albumin 3.4 g/dL (3.9-5) L 05/01/19 19:04 Albumin/Globulin Ratio 0.9 % 05/01/19 19:04 TSH 1.070 mlU/mL (0.270-4.200) 05/01/19 19:04 Urine Color Rita (Yellow) 05/01/19 Unknown Urine Turbidity Slightly-cloudy (Clear) 05/01/19 Unknown Urine pH 5.0 (5.0-7.0) 05/01/19 Unknown Ur Specific Sharon 1.028 (1.003-1.030) 05/01/19 Unknown Urine Protein 100 mg/dl mg/dL (Negative) 05/01/19 Unknown Urine Glucose (UA) Neg mg/dL (Negative) 05/01/19 Unknown Urine Ketones Neg mg/dL (Negative) 05/01/19 Unknown Urine Blood Neg (Negative) 05/01/19 Unknown Urine Nitrite Neg (Negative) 05/01/19 Unknown Urine Bilirubin Neg (Negative) 05/01/19 Unknown Urine Urobilinogen < 2.0 mg/dL (<2.0) 05/01/19 Unknown Ur Leukocyte Esterase Neg (Negative) 05/01/19 Unknown Urine WBC (Auto) 2.0 /HPF (0.0-6.0) 05/01/19 Unknown Urine RBC (Auto) 3.0 /HPF (0.0-6.0) 05/01/19 Unknown U Epithel Cells (Auto) 1.0 /HPF (0-13.0) 05/01/19 Unknown Urine Mucus 1+ /HPF 05/01/19 Unknown Salicylates < 0.3 mg/dL (2.8-20.0) L 05/01/19 19:04 Acetaminophen < 5.0 ug/mL (10.0-30.0) L 05/01/19 19:04 Active Medications - Current Medications Current Medications: Generic Name Dose Route Start Last Admin Trade Name Freq PRN Reason Stop Dose Admin Acetaminophen 650 mg 05/01/19 22:25 05/02/19 03:11 Tylenol PO 650 mg Q4H PRN Administration Pain MILD(1-3)/Fever >100.5/HAMPTON Apixaban 5 mg 05/02/19 10:00 05/02/19 10:10 Eliquis PO 5 mg Q12HR ASHLEY Administration Protocol Cholestyramine Resin 4 gm 05/02/19 10:00 05/02/19 10:17 Questran PO Not Given QDAY ASHLEY Duloxetine HCl 60 mg 05/02/19 22:00 Cymbalta PO QHS ASHLEY Furosemide 60 mg 05/02/19 22:00 Lasix PO BID ASHLEY Sodium Chloride 1,000 mls @ 125 mls/hr 05/01/19 22:30 05/02/19 03:11 Nacl 0.9% 1000 Ml IV 125 mls/hr DIRECT ASHLEY Administration Ceftriaxone Sodium 2 gm in 100 mls @ 200 mls/hr 05/02/19 10:00 05/02/19 10:10 Rocephin/Ns 2 Gm/100 Ml IV 200 mls/hr Q24HR ASHLEY Administration Protocol Azithromycin 500 mg/ Sodium 250 mls @ 250 mls/hr 05/02/19 10:00 05/02/19 10:36 Chloride IV 250 mls/hr Q24HR ASHLEY Administration Protocol Lisinopril 40 mg 05/02/19 10:00 05/02/19 10:09 Zestril PO 40 mg QDAY ASHLEY Administration Loperamide HCl 2 mg 05/02/19 12:11 Imodium PO Q2H PRN Diarrhea Magnesium Hydroxide 30 ml 05/01/19 22:25 Milk Of Magnesia PO Q4H PRN Constipation Metoprolol Tartrate 25 mg 05/02/19 10:00 05/02/19 10:10 Metoprolol PO 25 mg BID ASHLEY Administration Miscellaneous Medication 0.3 mg 05/02/19 14:00 Clonidine Hcl [Catapres] PO TID [facility] Morphine Sulfate 15 mg 05/02/19 05:37 Ms Contin Er PO DAILY PRN Pain , Severe (7-10) Ondansetron HCl 4 mg 05/01/19 22:25 Zofran IV Q8H PRN Nausea And Vomiting Oxycodone/Acetaminophen 1 tab 05/02/19 05:37 Percocet 5/325 PO Q4HR PRN Pain, Moderate (4-6) Pantoprazole Sodium 40 mg 05/02/19 10:00 05/02/19 10:09 Protonix PO 40 mg QDAY ASHLEY Administration Sodium Chloride 10 ml 05/02/19 10:00 05/02/19 10:11 Sodium Chloride Flush Syringe 10 Ml IV 10 ml BID ASHLEY Administration Sodium Chloride 10 ml 05/01/19 22:25 05/02/19 03:11 Sodium Chloride Flush Syringe 10 Ml IV 10 ml PRN PRN Administration LINE FLUSH
[2019-05-02] MEDS ORDERED: FUROSEMIDE 20 MG TAB PO SCH (13:00)
[2019-05-02] MEDS: cloNIDine 0.1 MG TAB PO SCH ×2 (13:36→22:28)
[2019-05-02] MEDS: LORazepam 2 MG TAB PO SCH ×2 (13:36→22:34)
[2019-05-02] MEDS: oxyCODONE /ACETAMINOPHEN 5-325MG TAB PO PRN ×2 (13:41→22:33)
[2019-05-02] MEDS ORDERED: NON-FORMULARY EACH (Clonidine Hcl [Catapres] 0.3 MG) PO SCH (14:00)
[2019-05-02] MEDS: DOXAZOSIN 1 MG TAB PO SCH (18:07)
[2019-05-02] MEDS ORDERED: NON-FORMULARY EACH (Duloxetine Hcl [Cymbalta] 60 MG) PO SCH (22:00)
[2019-05-02] MEDS ORDERED: FUROSEMIDE 40 MG TAB PO SCH (22:00)
[2019-05-02] MEDS: DULoxetine 30 MG CAP PO SCH (22:33)
[2019-05-02] MEDS: FUROSEMIDE 20 MG TAB PO SCH (22:33)
[2019-05-03] MEDS: ONDANSETRON 4 MG/2 ML INJ IV PRN ×3 (00:03→23:32)
[2019-05-03] MEDS: LORazepam 2 MG TAB PO SCH ×3 (06:20→21:34)
[2019-05-03] MEDS: cloNIDine 0.1 MG TAB PO SCH ×2 (06:33→13:07)
[2019-05-03] MEDS: oxyCODONE /ACETAMINOPHEN 5-325MG TAB PO PRN ×3 (06:37→21:33)
--- NOTE | 2019-05-03 09:41 | Progress Note ---
<JAIRONJVickie - Last Filed: 05/03/19 15:07> Assessment and Plan Assessment and plan: Patient is a 53 YO Female with a past medical history of CHF, COPD, DM, CVA, CAD S/P Stent Placement, Chronic Respiratory Failure with oxygen dependence at home, hypertension,DVT, Bipolar Disorder, and Morbid Obesity. SHe presents to [facility] with complaints of complaint of headache, inability to urinate for 1 day, and possible seizure. She denies any fever or chills but she indicates she has been having some cough and shortness of breath. CT abdomen; Negative for obstruction, inflammation or hemorrhage at the abdomen. 2. Unusual consolidation right base. Recommend follow-up to clearing CXR: IMPRESSION: 1. Acute process in the left upper lobe consistent with pneumonia. Pneumonia; Multifocal RLL and MAUREEN -IV antibiotics - blood cultures pending Acute on chronic hypoxic respiratory failure -Probably secondary to the pneumonia -Patient is on O2 3-5L at home -We will keep O2 saturation greater or equal to 92%. -nebulizer therapy Acute Renal failure, vasomotor nephropathy -treat with IVF -renal ultrasound Morbid obesity - dietary consult prior to discharge. -Counseling/education regarding weight status -Patient would benefit by bariatric weight reduction program as outpatient Acute on chronic diastolic CHF -monitor weight, fluids and daily weight -monitor labs -Continue diuresis Wound of buttock -Wound care consult placed Type 2 diabetes mellitus -Accu-Cheks ac/hs -Continue home meds once reconcile Seizure disorder -Seizure precautions; continue antiepileptic medications -Patient is chronically on Eliquis as also seen on her [employer] aware. -Aspiration precaution history of DVT Patient is on Eliquis DVT prophylaxis -current anticoagulation Eliquis. Hospitalist Physical - Constitutional Vitals: Temp Pulse Resp BP Pulse Ox 98.0 F 76 20 100/43 95 05/03/19 04:48 05/03/19 06:33 05/03/19 04:48 05/03/19 06:33 05/03/19 04:48 General appearance: Present: no acute distress, well-nourished, obese Results - Labs CBC & Chem 7: 05/02/19 07:04 05/02/19 07:04 Labs: Laboratory Last Values WBC 15.1 K/mm3 (4.5-11.0) H 05/02/19 07:04 RBC 3.43 M/mm3 (3.65-5.03) L 05/02/19 07:04 Hgb 11.6 gm/dl (10.1-14.3) 05/02/19 07:04 Hct 34.9 % (30.3-42.9) D 05/02/19 07:04 MCV 102 fl (79-97) H 05/02/19 07:04 MCH 34 pg (28-32) H 05/02/19 07:04 MCHC 33 % (30-34) 05/02/19 07:04 RDW 12.5 % (13.2-15.2) L 05/02/19 07:04 Plt Count 173 K/mm3 (140-440) 05/02/19 07:04 Lymph % (Auto) 11.9 % (13.4-35.0) L 05/02/19 07:04 [place] % (Auto) 6.5 % (0.0-7.3) 05/02/19 07:04 Eos % (Auto) 0.9 % (0.0-4.3) 05/02/19 07:04 Baso % (Auto) 0.3 % (0.0-1.8) 05/02/19 07:04 Lymph # 1.8 K/mm3 (1.2-5.4) 05/02/19 07:04 [place] # 1.0 K/mm3 (0.0-0.8) H 05/02/19 07:04 Eos # 0.1 K/mm3 (0.0-0.4) 05/02/19 07:04 Baso # 0.0 K/mm3 (0.0-0.1) 05/02/19 07:04 Seg Neutrophils % 80.4 % (40.0-70.0) H 05/02/19 07:04 Seg Neutrophils # 12.2 K/mm3 (1.8-7.7) H 05/02/19 07:04 PT 14.3 Sec. (12.2-14.9) 05/01/19 19:04 INR 1.10 (0.87-1.13) 05/01/19 19:04 Sodium 142 mmol/L (137-145) 05/02/19 07:04 Potassium 4.7 mmol/L (3.6-5.0) 05/02/19 07:04 Chloride 100.1 mmol/L (98-107) 05/02/19 07:04 Carbon Dioxide 25 mmol/L (22-30) 05/02/19 07:04 Anion Gap 22 mmol/L 05/02/19 07:04 BUN 28 mg/dL (7-17) H 05/02/19 07:04 Creatinine 1.2 mg/dL (0.7-1.2) 05/02/19 07:04 Estimated GFR 47 ml/min 05/02/19 07:04 BUN/Creatinine Ratio 23 % 05/02/19 07:04 Glucose 95 mg/dL (65-100) 05/02/19 07:04 Lactic Acid 0.70 mmol/L (0.7-2.0) 05/01/19 21:05 Calcium 8.8 mg/dL (8.4-10.2) 05/02/19 07:04 Magnesium 1.80 mg/dL (1.7-2.3) 05/01/19 19:04 Total Bilirubin 0.40 mg/dL (0.1-1.2) 05/01/19 19:04 AST 14 units/L (5-40) 05/01/19 19:04 ALT 12 units/L (7-56) 05/01/19 19:04 Alkaline Phosphatase 75 units/L (35-129) 05/01/19 19:04 Total Creatine Kinase 45 units/L (30-135) 05/01/19 19:04 Troponin T < 0.010 ng/mL (0.00-0.029) 05/01/19 19:04 NT-Pro-B Natriuret Pep 935.0 pg/mL (0-900) H 05/01/19 19:04 Total Protein 7.4 g/dL (6.3-8.2) 05/01/19 19:04 Albumin 3.4 g/dL (3.9-5) L 05/01/19 19:04 Albumin/Globulin Ratio 0.9 % 05/01/19 19:04 TSH 1.070 mlU/mL (0.270-4.200) 05/01/19 19:04 Urine Color Rita (Yellow) 05/01/19 Unknown Urine Turbidity Slightly-cloudy (Clear) 05/01/19 Unknown Urine pH 5.0 (5.0-7.0) 05/01/19 Unknown Ur Specific [place] 1.028 (1.003-1.030) 05/01/19 Unknown Urine Protein 100 mg/dl mg/dL (Negative) 05/01/19 Unknown Urine Glucose (UA) Neg mg/dL (Negative) 05/01/19 Unknown Urine Ketones Neg mg/dL (Negative) 05/01/19 Unknown Urine Blood Neg (Negative) 05/01/19 Unknown Urine Nitrite Neg (Negative) 05/01/19 Unknown Urine Bilirubin Neg (Negative) 05/01/19 Unknown Urine Urobilinogen < 2.0 mg/dL (<2.0) 05/01/19 Unknown Ur Leukocyte Esterase Neg (Negative) 05/01/19 Unknown Urine WBC (Auto) 2.0 /HPF (0.0-6.0) 05/01/19 Unknown Urine RBC (Auto) 3.0 /HPF (0.0-6.0) 05/01/19 Unknown U Epithel Cells (Auto) 1.0 /HPF (0-13.0) 05/01/19 Unknown Urine Mucus 1+ /HPF 05/01/19 Unknown Salicylates < 0.3 mg/dL (2.8-20.0) L 05/01/19 19:04 Acetaminophen < 5.0 ug/mL (10.0-30.0) L 05/01/19 19:04 Active Medications - Current Medications Current Medications: Generic Name Dose Route Start Last Admin Trade Name Freq PRN Reason Stop Dose Admin Acetaminophen 650 mg 05/01/19 22:25 05/02/19 03:11 Tylenol PO 650 mg Q4H PRN Administration Pain MILD(1-3)/Fever >100.5/HAMPTON Apixaban 5 mg 05/02/19 10:00 05/02/19 22:33 Eliquis PO 5 mg Q12HR ASHLEY Administration Protocol Cholestyramine Resin 4 gm 05/02/19 10:00 05/02/19 10:17 Questran PO Not Given QDAY ASHLEY Clonidine HCl 0.3 mg 05/02/19 14:00 05/03/19 06:33 Catapres PO Not Given Q8HR ASHLEY Doxazosin Mesylate 1 mg 05/02/19 13:00 05/02/19 18:07 Cardura PO 1 mg QDAY ASHLEY Administration Duloxetine HCl 60 mg 05/02/19 22:00 05/02/19 22:33 Cymbalta PO 60 mg QHS ASHLEY Administration Furosemide 60 mg 05/02/19 22:00 05/02/19 22:33 Lasix PO 60 mg BID ASHLEY Administration Sodium Chloride 1,000 mls @ 125 mls/hr 05/01/19 22:30 05/02/19 13:04 Nacl 0.9% 1000 Ml IV 125 mls/hr DIRECT ASHLEY Administration Ceftriaxone Sodium 2 gm in 100 mls @ 200 mls/hr 05/02/19 10:00 05/02/19 10:10 Rocephin/Ns 2 Gm/100 Ml IV 200 mls/hr Q24HR ASHLEY Administration Protocol Azithromycin 500 mg/ Sodium 250 mls @ 250 mls/hr 05/02/19 10:00 05/02/19 10:36 Chloride IV 250 mls/hr Q24HR ASHLEY Administration Protocol Lisinopril 40 mg 05/02/19 10:00 05/02/19 10:09 Zestril PO 40 mg QDAY ASHLEY Administration Loperamide HCl 2 mg 05/02/19 12:11 Imodium PO Q2H PRN Diarrhea Lorazepam 2 mg 05/02/19 13:00 05/03/19 06:20 Ativan PO 2 mg Q8H ASHLEY Administration Magnesium Hydroxide 30 ml 05/01/19 22:25 Milk Of Magnesia PO Q4H PRN Constipation Metoprolol Tartrate 25 mg 05/02/19 10:00 05/02/19 22:36 Metoprolol PO 25 mg BID ASHLEY Administration Morphine Sulfate 15 mg 05/02/19 05:37 Ms Contin Er PO DAILY PRN Pain , Severe (7-10) Ondansetron HCl 4 mg 05/01/19 22:25 05/03/19 00:03 Zofran IV 4 mg Q8H PRN Administration Nausea And Vomiting Oxycodone/Acetaminophen 1 tab 05/02/19 05:37 05/03/19 06:37 Percocet 5/325 PO 1 tab Q4HR PRN Administration Pain, Moderate (4-6) Pantoprazole Sodium 40 mg 05/02/19 10:00 05/02/19 10:09 Protonix PO 40 mg QDAY ASHLEY Administration Sodium Chloride 10 ml 05/02/19 10:00 05/02/19 22:35 Sodium Chloride Flush Syringe 10 Ml IV 10 ml BID ASHLEY Administration Sodium Chloride 10 ml 05/01/19 22:25 05/02/19 03:11 Sodium Chloride Flush Syringe 10 Ml IV 10 ml PRN PRN Administration LINE FLUSH <PILAR LEIGH - Last Filed: 05/03/19 15:46> Assessment and Plan Assessment and plan: I saw and evaluated the patient. I agree with the findings and the plan of care as documented in the Nurse Practitioner's~note, with the following corrections and additions. Patient is a 53 yo woman with a past medical history of CHF, COPD, DM, CVA, CAD S/P Stent Placement, Chronic Respiratory Failure with 3-5 liters home oxygen, hypertension, DVT on Eliquis, Bipolar Disorder and Morbid Obesity who presented with SOB. * CT abdomen; Negative for obstruction, inflammation or hemorrhage at the abdomen. 2. Unusual consolidation right base. Recommend follow-up to clearing (spoke with Dr. Ochoa, RLL pna) * CXR: IMPRESSION: 1. Acute process in the left upper lobe consistent with pneumonia. Urinary Retention with a oconnor -renal ultrasound Acute Renal failure, vasomotor nephropathy -treat with IVF -renal ultrasound Sepsis Pneumonia; poa RLL and MAUREEN, Multifocal Aspiration Pneumonia -IV antibiotics - blood cultures pending Acute and chronic hypoxic respiratory failure -Probably secondary to the pneumonia -Patient is on O2 3-5L at home -We will keep O2 saturation greater or equal to 92%. -nebulizer therapy Morbid obesity - dietary consult prior to discharge. -Counseling/education regarding weight status -Patient would benefit by bariatric weight reduction program as outpatient CHF, Acute on chronic diastolic heart failure -monitor weight, fluids and daily weight -monitor labs Wound of buttock -Wound care consult placed Type 2 diabetes mellitus -Accu-Cheks ac/hs -Continue home meds once reconcile Seizure disorder -Seizure precautions; continue antiepileptic medications -Patient is chronically on Eliquis as also seen on her [employer] aware. -Aspiration precaution History of DVT Patient is on Eliquis DVT prophylaxis -current anticoagulation Eliquis. New issue today hypotension, pt on lasix 60mg bid/lisinopril/clonidine/lopressor and nss 125 ml/hr, will need to adjust bp medications and IVF Hospitalist Physical - Constitutional Vitals: Temp Pulse Resp BP Pulse Ox 97.5 F L 87 24 97/52 94 05/03/19 11:28 05/03/19 11:28 05/03/19 11:28 05/03/19 13:07 05/03/19 11:28 Results - Labs CBC & Chem 7: 05/02/19 07:04 05/02/19 07:04 Labs: Laboratory Last Values WBC 15.1 K/mm3 (4.5-11.0) H 05/02/19 07:04 RBC 3.43 M/mm3 (3.65-5.03) L 05/02/19 07:04 Hgb 11.6 gm/dl (10.1-14.3) 05/02/19 07:04 Hct 34.9 % (30.3-42.9) D 05/02/19 07:04 MCV 102 fl (79-97) H 05/02/19 07:04 MCH 34 pg (28-32) H 05/02/19 07:04 MCHC 33 % (30-34) 05/02/19 07:04 RDW 12.5 % (13.2-15.2) L 05/02/19 07:04 Plt Count 173 K/mm3 (140-440) 05/02/19 07:04 Lymph % (Auto) 11.9 % (13.4-35.0) L 05/02/19 07:04 [place] % (Auto) 6.5 % (0.0-7.3) 05/02/19 07:04 Eos % (Auto) 0.9 % (0.0-4.3) 05/02/19 07:04 Baso % (Auto) 0.3 % (0.0-1.8) 05/02/19 07:04 Lymph # 1.8 K/mm3 (1.2-5.4) 05/02/19 07:04 [place] # 1.0 K/mm3 (0.0-0.8) H 05/02/19 07:04 Eos # 0.1 K/mm3 (0.0-0.4) 05/02/19 07:04 Baso # 0.0 K/mm3 (0.0-0.1) 05/02/19 07:04 Seg Neutrophils % 80.4 % (40.0-70.0) H 05/02/19 07:04 Seg Neutrophils # 12.2 K/mm3 (1.8-7.7) H 05/02/19 07:04 PT 14.3 Sec. (12.2-14.9) 05/01/19 19:04 INR 1.10 (0.87-1.13) 05/01/19 19:04 Sodium 142 mmol/L (137-145) 05/02/19 07:04 Potassium 4.7 mmol/L (3.6-5.0) 05/02/19 07:04 Chloride 100.1 mmol/L (98-107) 05/02/19 07:04 Carbon Dioxide 25 mmol/L (22-30) 05/02/19 07:04 Anion Gap 22 mmol/L 05/02/19 07:04 BUN 28 mg/dL (7-17) H 05/02/19 07:04 Creatinine 1.2 mg/dL (0.7-1.2) 05/02/19 07:04 Estimated GFR 47 ml/min 05/02/19 07:04 BUN/Creatinine Ratio 23 % 05/02/19 07:04 Glucose 95 mg/dL (65-100) 05/02/19 07:04 Lactic Acid 0.70 mmol/L (0.7-2.0) 05/01/19 21:05 Calcium 8.8 mg/dL (8.4-10.2) 05/02/19 07:04 Magnesium 1.80 mg/dL (1.7-2.3) 05/01/19 19:04 Total Bilirubin 0.40 mg/dL (0.1-1.2) 05/01/19 19:04 AST 14 units/L (5-40) 05/01/19 19:04 ALT 12 units/L (7-56) 05/01/19 19:04 Alkaline Phosphatase 75 units/L (35-129) 05/01/19 19:04 Total Creatine Kinase 45 units/L (30-135) 05/01/19 19:04 Troponin T < 0.010 ng/mL (0.00-0.029) 05/01/19 19:04 NT-Pro-B Natriuret Pep 935.0 pg/mL (0-900) H 05/01/19 19:04 Total Protein 7.4 g/dL (6.3-8.2) 05/01/19 19:04 Albumin 3.4 g/dL (3.9-5) L 05/01/19 19:04 Albumin/Globulin Ratio 0.9 % 05/01/19 19:04 TSH 1.070 mlU/mL (0.270-4.200) 05/01/19 19:04 Urine Color Rita (Yellow) 05/01/19 Unknown Urine Turbidity Slightly-cloudy (Clear) 05/01/19 Unknown Urine pH 5.0 (5.0-7.0) 05/01/19 Unknown Ur Specific [place] 1.028 (1.003-1.030) 05/01/19 Unknown Urine Protein 100 mg/dl mg/dL (Negative) 05/01/19 Unknown Urine Glucose (UA) Neg mg/dL (Negative) 05/01/19 Unknown Urine Ketones Neg mg/dL (Negative) 05/01/19 Unknown Urine Blood Neg (Negative) 05/01/19 Unknown Urine Nitrite Neg (Negative) 05/01/19 Unknown Urine Bilirubin Neg (Negative) 05/01/19 Unknown Urine Urobilinogen < 2.0 mg/dL (<2.0) 05/01/19 Unknown Ur Leukocyte Esterase Neg (Negative) 05/01/19 Unknown Urine WBC (Auto) 2.0 /HPF (0.0-6.0) 05/01/19 Unknown Urine RBC (Auto) 3.0 /HPF (0.0-6.0) 05/01/19 Unknown U Epithel Cells (Auto) 1.0 /HPF (0-13.0) 05/01/19 Unknown Urine Mucus 1+ /HPF 05/01/19 Unknown Salicylates < 0.3 mg/dL (2.8-20.0) L 05/01/19 19:04 Acetaminophen < 5.0 ug/mL (10.0-30.0) L 05/01/19 19:04 Active Medications - Current Medications Current Medications: Generic Name Dose Route Start Last Admin Trade Name Freq PRN Reason Stop Dose Admin Acetaminophen 650 mg 05/01/19 22:25 05/02/19 03:11 Tylenol PO 650 mg Q4H PRN Administration Pain MILD(1-3)/Fever >100.5/[place] Apixaban 5 mg 05/02/19 10:00 05/03/19 09:56 Eliquis PO 5 mg Q12HR ASHLEY Administration Protocol Cholestyramine Resin 4 gm 05/02/19 10:00 05/03/19 10:00 Questran PO Not Given QDAY ASHLEY Duloxetine HCl 60 mg 05/02/19 22:00 05/02/19 22:33 Cymbalta PO 60 mg QHS ASHLEY Administration Sodium Chloride 1,000 mls @ 125 mls/hr 05/01/19 22:30 05/03/19 14:11 Nacl 0.9% 1000 Ml IV 125 mls/hr DIRECT ASHLEY Administration Ceftriaxone Sodium 2 gm in 100 mls @ 200 mls/hr 05/02/19 10:00 05/03/19 09:57 Rocephin/Ns 2 Gm/100 Ml IV 200 mls/hr Q24HR ASHLEY Administration Protocol Azithromycin 500 mg/ Sodium 250 mls @ 250 mls/hr 05/02/19 10:00 05/03/19 09:58 Chloride IV 250 mls/hr Q24HR ASHLEY Administration Protocol Loperamide HCl 2 mg 05/02/19 12:11 Imodium PO Q2H PRN Diarrhea Lorazepam 2 mg 05/02/19 13:00 05/03/19 12:37 Ativan PO 2 mg Q8H ASHLEY Administration Magnesium Hydroxide 30 ml 05/01/19 22:25 Milk Of Magnesia PO Q4H PRN Constipation Metoprolol Tartrate 25 mg 05/02/19 10:00 05/03/19 12:22 Metoprolol PO Not Given BID ASHLEY Ondansetron HCl 4 mg 05/01/19 22:25 05/03/19 14:08 Zofran IV 4 mg Q8H PRN Administration Nausea And Vomiting Oxycodone/Acetaminophen 1 tab 05/02/19 05:37 05/03/19 14:08 Percocet 5/325 PO 1 tab Q4HR PRN Administration Pain, Moderate (4-6) Pantoprazole Sodium 40 mg 05/02/19 10:00 05/03/19 09:56 Protonix PO 40 mg QDAY ASHLEY Administration Sodium Chloride 10 ml 05/02/19 10:00 05/03/19 09:57 Sodium Chloride Flush Syringe 10 Ml IV 10 ml BID ASHLEY Administration Sodium Chloride 10 ml 05/01/19 22:25 05/02/19 03:11 Sodium Chloride Flush Syringe 10 Ml IV 10 ml PRN PRN Administration LINE FLUSH
[2019-05-03] MEDS: CHOLESTYRAMINE (WITH SUGAR) 4 GM PACKET PO SCH ×2 (09:56→10:00)
[2019-05-03] MEDS: APIXABAN 5 MG TAB PO SCH ×2 (09:56→21:34)
[2019-05-03] MEDS: PANTOPRAZOLE 40 MG TAB PO SCH (09:56)
[2019-05-03] MEDS: cefTRIAXone/NS 2 GM/100 ML 2 GM/100 ML BAG IV SCH (09:57)
[2019-05-03] MEDS: AZITHROMYCIN 500 MG in SODIUM CHLORIDE 0.9% 250ML 250 ML IV SCH (09:58)
[2019-05-03] MEDS: DOXAZOSIN 1 MG TAB PO SCH (12:21)
[2019-05-03] MEDS: FUROSEMIDE 20 MG TAB PO SCH (12:22)
[2019-05-03] MEDS: METOPROLOL TARTRATE 25 MG TAB PO SCH ×2 (12:22→21:34)
[2019-05-03] MEDS: LISINOPRIL 40 MG TAB PO SCH (12:23)
[2019-05-03] MEDS: SODIUM CHLORIDE 0.9% 1000 ML 1,000 ML IV SCH (14:11)
[2019-05-03] MEDS ORDERED: MORPHINE 2 MG/1 ML INJ IV PRN (15:46)
[2019-05-03] MEDS: FUROSEMIDE 40 MG TAB PO SCH (17:38)
[2019-05-03] MEDS: ACETAMINOPHEN 325 MG TAB PO PRN (17:41)
[2019-05-03] MEDS: DULoxetine 30 MG CAP PO SCH (21:34)
[2019-05-04] MEDS: oxyCODONE /ACETAMINOPHEN 5-325MG TAB PO PRN ×3 (02:23→14:45)
[2019-05-04] MEDS: FUROSEMIDE 40 MG TAB PO SCH (05:29)
[2019-05-04] MEDS: LORazepam 2 MG TAB PO SCH ×2 (06:21→14:46)
[2019-05-04] MEDS: AZITHROMYCIN 500 MG in SODIUM CHLORIDE 0.9% 250ML 250 ML IV SCH (10:00)
[2019-05-04] MEDS: cefTRIAXone/NS 2 GM/100 ML 2 GM/100 ML BAG IV SCH (10:00)
--- NOTE | 2019-05-04 10:12 | Progress Note ---
<N[place] GILL - Last Filed: 05/04/19 11:12> Assessment and Plan Assessment and plan: Patient is a 53 yo woman with a past medical history of CHF, COPD, DM, CVA, CAD S/P Stent Placement, Chronic Respiratory Failure with home oxygen dependency, hypertension, DVT on Eliquis, Bipolar Disorder and Morbid Obesity w ho complaint of headache, and urinary retention. Since admission patient she has been having increased cough and shortness of breath. CT abdomen; Negative for obstruction, inflammation or hemorrhage at the abdomen. 2. Unusual consolidation right base. Recommend follow-up to clearing CXR: IMPRESSION: 1. Acute process in the left upper lobe consistent with pneumonia. Sepsis Pneumonia; Multifocal RLL and MAUREEN -IV antibiotics Acute on chronic hypoxic respiratory failure -Probably secondary to the pneumonia -Patient is on O2 3-5L at home -We will keep O2 saturation greater or equal to 92%. -nebulizer therapy Acute Renal failure, vasomotor nephropathy -treat with IVF -renal ultrasound pending Morbid obesity - dietary consult prior to discharge. -Counseling/education regarding weight status -Patient would benefit by bariatric weight reduction program as outpatient Acute on chronic diastolic CHF -monitor weight, fluids and daily weight -monitor labs -Continue diuresis Wound of buttock -Wound care consult placed Type 2 diabetes mellitus -Accu-Cheks ac/hs -Continue home meds once reconcile Seizure disorder -Seizure precautions; continue antiepileptic medications -Patient is chronically on Eliquis as also seen on her CERTIFIED MEDICAL AIDE aware. -Aspiration precaution history of DVT Patient is on Eliquis DVT prophylaxis -current anticoagulation Eliquis. Hospitalist Physical - Constitutional Vitals: Temp Pulse Resp BP Pulse Ox 98.3 F 84 18 134/64 93 05/04/19 04:12 05/04/19 04:12 05/04/19 06:21 05/04/19 04:12 05/04/19 04:12 General appearance: Present: no acute distress, well-nourished, obese Results - Labs CBC & Chem 7: 05/02/19 07:04 05/02/19 07:04 Labs: Laboratory Last Values WBC 15.1 K/mm3 (4.5-11.0) H 05/02/19 07:04 RBC 3.43 M/mm3 (3.65-5.03) L 05/02/19 07:04 Hgb 11.6 gm/dl (10.1-14.3) 05/02/19 07:04 Hct 34.9 % (30.3-42.9) D 05/02/19 07:04 MCV 102 fl (79-97) H 05/02/19 07:04 MCH 34 pg (28-32) H 05/02/19 07:04 MCHC 33 % (30-34) 05/02/19 07:04 RDW 12.5 % (13.2-15.2) L 05/02/19 07:04 Plt Count 173 K/mm3 (140-440) 05/02/19 07:04 Lymph % (Auto) 11.9 % (13.4-35.0) L 05/02/19 07:04 [place] % (Auto) 6.5 % (0.0-7.3) 05/02/19 07:04 Eos % (Auto) 0.9 % (0.0-4.3) 05/02/19 07:04 Baso % (Auto) 0.3 % (0.0-1.8) 05/02/19 07:04 Lymph # 1.8 K/mm3 (1.2-5.4) 05/02/19 07:04 [place] # 1.0 K/mm3 (0.0-0.8) H 05/02/19 07:04 Eos # 0.1 K/mm3 (0.0-0.4) 05/02/19 07:04 Baso # 0.0 K/mm3 (0.0-0.1) 05/02/19 07:04 Seg Neutrophils % 80.4 % (40.0-70.0) H 05/02/19 07:04 Seg Neutrophils # 12.2 K/mm3 (1.8-7.7) H 05/02/19 07:04 PT 14.3 Sec. (12.2-14.9) 05/01/19 19:04 INR 1.10 (0.87-1.13) 05/01/19 19:04 Sodium 142 mmol/L (137-145) 05/02/19 07:04 Potassium 4.7 mmol/L (3.6-5.0) 05/02/19 07:04 Chloride 100.1 mmol/L (98-107) 05/02/19 07:04 Carbon Dioxide 25 mmol/L (22-30) 05/02/19 07:04 Anion Gap 22 mmol/L 05/02/19 07:04 BUN 28 mg/dL (7-17) H 05/02/19 07:04 Creatinine 1.2 mg/dL (0.7-1.2) 05/02/19 07:04 Estimated GFR 47 ml/min 05/02/19 07:04 BUN/Creatinine Ratio 23 % 05/02/19 07:04 Glucose 95 mg/dL (65-100) 05/02/19 07:04 Lactic Acid 0.70 mmol/L (0.7-2.0) 05/01/19 21:05 Calcium 8.8 mg/dL (8.4-10.2) 05/02/19 07:04 Magnesium 1.80 mg/dL (1.7-2.3) 05/01/19 19:04 Total Bilirubin 0.40 mg/dL (0.1-1.2) 05/01/19 19:04 AST 14 units/L (5-40) 05/01/19 19:04 ALT 12 units/L (7-56) 05/01/19 19:04 Alkaline Phosphatase 75 units/L (35-129) 05/01/19 19:04 Total Creatine Kinase 45 units/L (30-135) 05/01/19 19:04 Troponin T < 0.010 ng/mL (0.00-0.029) 05/01/19 19:04 NT-Pro-B Natriuret Pep 935.0 pg/mL (0-900) H 05/01/19 19:04 Total Protein 7.4 g/dL (6.3-8.2) 05/01/19 19:04 Albumin 3.4 g/dL (3.9-5) L 05/01/19 19:04 Albumin/Globulin Ratio 0.9 % 05/01/19 19:04 TSH 1.070 mlU/mL (0.270-4.200) 05/01/19 19:04 Urine Color Rita (Yellow) 05/01/19 Unknown Urine Turbidity Slightly-cloudy (Clear) 05/01/19 Unknown Urine pH 5.0 (5.0-7.0) 05/01/19 Unknown Ur Specific [place] 1.028 (1.003-1.030) 05/01/19 Unknown Urine Protein 100 mg/dl mg/dL (Negative) 05/01/19 Unknown Urine Glucose (UA) Neg mg/dL (Negative) 05/01/19 Unknown Urine Ketones Neg mg/dL (Negative) 05/01/19 Unknown Urine Blood Neg (Negative) 05/01/19 Unknown Urine Nitrite Neg (Negative) 05/01/19 Unknown Urine Bilirubin Neg (Negative) 05/01/19 Unknown Urine Urobilinogen < 2.0 mg/dL (<2.0) 05/01/19 Unknown Ur Leukocyte Esterase Neg (Negative) 05/01/19 Unknown Urine WBC (Auto) 2.0 /HPF (0.0-6.0) 05/01/19 Unknown Urine RBC (Auto) 3.0 /HPF (0.0-6.0) 05/01/19 Unknown U Epithel Cells (Auto) 1.0 /HPF (0-13.0) 05/01/19 Unknown Urine Mucus 1+ /HPF 05/01/19 Unknown Salicylates < 0.3 mg/dL (2.8-20.0) L 05/01/19 19:04 Acetaminophen < 5.0 ug/mL (10.0-30.0) L 05/01/19 19:04 Active Medications - Current Medications Current Medications: Generic Name Dose Route Start Last Admin Trade Name Freq PRN Reason Stop Dose Admin Acetaminophen 650 mg 05/01/19 22:25 05/03/19 17:41 Tylenol PO 650 mg Q4H PRN Administration Pain MILD(1-3)/Fever >100.5/HAMPTON Apixaban 5 mg 05/02/19 10:00 05/03/19 21:34 Eliquis PO 5 mg Q12HR ASHLEY Administration Protocol Cholestyramine Resin 4 gm 05/02/19 10:00 05/03/19 10:00 Questran PO Not Given QDAY ASHLEY Duloxetine HCl 60 mg 05/02/19 22:00 05/03/19 21:34 Cymbalta PO 60 mg QHS ASHLEY Administration Furosemide 40 mg 05/03/19 16:00 05/04/19 05:29 Lasix PO 40 mg DAILY@0600 ASHLEY Administration Ceftriaxone Sodium 2 gm in 100 mls @ 200 mls/hr 05/02/19 10:00 05/03/19 09:57 Rocephin/Ns 2 Gm/100 Ml IV 200 mls/hr Q24HR ASHLEY Administration Protocol Azithromycin 500 mg/ Sodium 250 mls @ 250 mls/hr 05/02/19 10:00 05/03/19 09:58 Chloride IV 250 mls/hr Q24HR ASHLEY Administration Protocol Lorazepam 2 mg 05/02/19 13:00 05/04/19 06:21 Ativan PO 2 mg Q8H ASHLEY Administration Magnesium Hydroxide 30 ml 05/01/19 22:25 Milk Of Magnesia PO Q4H PRN Constipation Metoprolol Tartrate 25 mg 05/02/19 10:00 05/03/19 21:34 Metoprolol PO 25 mg BID ASHLEY Administration Morphine Sulfate 2 mg 05/03/19 15:46 Morphine IV Q4H PRN Pain , Severe (7-10) Ondansetron HCl 4 mg 05/01/19 22:25 05/03/19 23:32 Zofran IV 4 mg Q8H PRN Administration Nausea And Vomiting Oxycodone/Acetaminophen 1 tab 05/02/19 05:37 05/04/19 06:21 Percocet 5/325 PO 1 tab Q4HR PRN Administration Pain, Moderate (4-6) Pantoprazole Sodium 40 mg 05/02/19 10:00 05/03/19 09:56 Protonix PO 40 mg QDAY ASHLEY Administration Sodium Chloride 10 ml 05/02/19 10:00 05/03/19 23:32 Sodium Chloride Flush Syringe 10 Ml IV 10 ml BID ASHLEY Administration Sodium Chloride 10 ml 05/01/19 22:25 05/02/19 03:11 Sodium Chloride Flush Syringe 10 Ml IV 10 ml PRN PRN Administration LINE FLUSH <PILAR LEIGH R - Last Filed: 05/04/19 13:29> Assessment and Plan Assessment and plan: I saw and evaluated the patient. I agree with the findings and the plan of care as documented in the Nurse Practitioner's~note, with the following corrections and additions. Follow up pneumonia Actually BMI is 73.2 Renal u/s negative remove oconnor and d/c home Hospitalist Physical - Constitutional Vitals: Temp Pulse Resp BP Pulse Ox 98.3 F 84 18 134/64 93 05/04/19 04:12 05/04/19 04:12 05/04/19 06:21 05/04/19 04:12 05/04/19 04:12 Results - Labs CBC & Chem 7: 05/02/19 07:04 05/02/19 07:04 Labs: Laboratory Last Values WBC 15.1 K/mm3 (4.5-11.0) H 05/02/19 07:04 RBC 3.43 M/mm3 (3.65-5.03) L 05/02/19 07:04 Hgb 11.6 gm/dl (10.1-14.3) 05/02/19 07:04 Hct 34.9 % (30.3-42.9) D 05/02/19 07:04 MCV 102 fl (79-97) H 05/02/19 07:04 MCH 34 pg (28-32) H 05/02/19 07:04 MCHC 33 % (30-34) 05/02/19 07:04 RDW 12.5 % (13.2-15.2) L 05/02/19 07:04 Plt Count 173 K/mm3 (140-440) 05/02/19 07:04 Lymph % (Auto) 11.9 % (13.4-35.0) L 05/02/19 07:04 [place] % (Auto) 6.5 % (0.0-7.3) 05/02/19 07:04 Eos % (Auto) 0.9 % (0.0-4.3) 05/02/19 07:04 Baso % (Auto) 0.3 % (0.0-1.8) 05/02/19 07:04 Lymph # 1.8 K/mm3 (1.2-5.4) 05/02/19 07:04 [place] # 1.0 K/mm3 (0.0-0.8) H 05/02/19 07:04 Eos # 0.1 K/mm3 (0.0-0.4) 05/02/19 07:04 Baso # 0.0 K/mm3 (0.0-0.1) 05/02/19 07:04 Seg Neutrophils % 80.4 % (40.0-70.0) H 05/02/19 07:04 Seg Neutrophils # 12.2 K/mm3 (1.8-7.7) H 05/02/19 07:04 PT 14.3 Sec. (12.2-14.9) 05/01/19 19:04 INR 1.10 (0.87-1.13) 05/01/19 19:04 Sodium 142 mmol/L (137-145) 05/02/19 07:04 Potassium 4.7 mmol/L (3.6-5.0) 05/02/19 07:04 Chloride 100.1 mmol/L (98-107) 05/02/19 07:04 Carbon Dioxide 25 mmol/L (22-30) 05/02/19 07:04 Anion Gap 22 mmol/L 05/02/19 07:04 BUN 28 mg/dL (7-17) H 05/02/19 07:04 Creatinine 1.2 mg/dL (0.7-1.2) 05/02/19 07:04 Estimated GFR 47 ml/min 05/02/19 07:04 BUN/Creatinine Ratio 23 % 05/02/19 07:04 Glucose 95 mg/dL (65-100) 05/02/19 07:04 Lactic Acid 0.70 mmol/L (0.7-2.0) 05/01/19 21:05 Calcium 8.8 mg/dL (8.4-10.2) 05/02/19 07:04 Magnesium 1.80 mg/dL (1.7-2.3) 05/01/19 19:04 Total Bilirubin 0.40 mg/dL (0.1-1.2) 05/01/19 19:04 AST 14 units/L (5-40) 05/01/19 19:04 ALT 12 units/L (7-56) 05/01/19 19:04 Alkaline Phosphatase 75 units/L (35-129) 05/01/19 19:04 Total Creatine Kinase 45 units/L (30-135) 05/01/19 19:04 Troponin T < 0.010 ng/mL (0.00-0.029) 05/01/19 19:04 NT-Pro-B Natriuret Pep 935.0 pg/mL (0-900) H 05/01/19 19:04 Total Protein 7.4 g/dL (6.3-8.2) 05/01/19 19:04 Albumin 3.4 g/dL (3.9-5) L 05/01/19 19:04 Albumin/Globulin Ratio 0.9 % 05/01/19 19:04 TSH 1.070 mlU/mL (0.270-4.200) 05/01/19 19:04 Urine Color Rita (Yellow) 05/01/19 Unknown Urine Turbidity Slightly-cloudy (Clear) 05/01/19 Unknown Urine pH 5.0 (5.0-7.0) 05/01/19 Unknown Ur Specific [place] 1.028 (1.003-1.030) 05/01/19 Unknown Urine Protein 100 mg/dl mg/dL (Negative) 05/01/19 Unknown Urine Glucose (UA) Neg mg/dL (Negative) 05/01/19 Unknown Urine Ketones Neg mg/dL (Negative) 05/01/19 Unknown Urine Blood Neg (Negative) 05/01/19 Unknown Urine Nitrite Neg (Negative) 05/01/19 Unknown Urine Bilirubin Neg (Negative) 05/01/19 Unknown Urine Urobilinogen < 2.0 mg/dL (<2.0) 05/01/19 Unknown Ur Leukocyte Esterase Neg (Negative) 05/01/19 Unknown Urine WBC (Auto) 2.0 /HPF (0.0-6.0) 05/01/19 Unknown Urine RBC (Auto) 3.0 /HPF (0.0-6.0) 05/01/19 Unknown U Epithel Cells (Auto) 1.0 /HPF (0-13.0) 05/01/19 Unknown Urine Mucus 1+ /HPF 05/01/19 Unknown Salicylates < 0.3 mg/dL (2.8-20.0) L 05/01/19 19:04 Acetaminophen < 5.0 ug/mL (10.0-30.0) L 05/01/19 19:04 Active Medications - Current Medications Current Medications: Generic Name Dose Route Start Last Admin Trade Name Freq PRN Reason Stop Dose Admin Acetaminophen 650 mg 05/01/19 22:25 05/03/19 17:41 Tylenol PO 650 mg Q4H PRN Administration Pain MILD(1-3)/Fever >100.5/[place] Apixaban 5 mg 05/02/19 10:00 05/03/19 21:34 Eliquis PO 5 mg Q12HR ASHLEY Administration Protocol Cholestyramine Resin 4 gm 05/02/19 10:00 05/03/19 10:00 Questran PO Not Given QDAY ASHLEY Duloxetine HCl 60 mg 05/02/19 22:00 05/03/19 21:34 Cymbalta PO 60 mg QHS ASHLEY Administration Furosemide 40 mg 05/03/19 16:00 05/04/19 05:29 Lasix PO 40 mg DAILY@0600 ASHLEY Administration Ceftriaxone Sodium 2 gm in 100 mls @ 200 mls/hr 05/02/19 10:00 05/03/19 09:57 Rocephin/Ns 2 Gm/100 Ml IV 200 mls/hr Q24HR ASHLEY Administration Protocol Azithromycin 500 mg/ Sodium 250 mls @ 250 mls/hr 05/02/19 10:00 05/03/19 09:58 Chloride IV 05/06/19 10:59 250 mls/hr Q24HR ASHLEY Administration Protocol Lorazepam 2 mg 05/02/19 13:00 05/04/19 06:21 Ativan PO 2 mg Q8H ASHLEY Administration Magnesium Hydroxide 30 ml 05/01/19 22:25 Milk Of Magnesia PO Q4H PRN Constipation Metoprolol Tartrate 25 mg 05/02/19 10:00 05/03/19 21:34 Metoprolol PO 25 mg BID ASHLEY Administration Morphine Sulfate 2 mg 05/03/19 15:46 Morphine IV Q4H PRN Pain , Severe (7-10) Ondansetron HCl 4 mg 05/01/19 22:25 05/03/19 23:32 Zofran IV 4 mg Q8H PRN Administration Nausea And Vomiting Oxycodone/Acetaminophen 1 tab 05/02/19 05:37 05/04/19 06:21 Percocet 5/325 PO 1 tab Q4HR PRN Administration Pain, Moderate (4-6) Pantoprazole Sodium 40 mg 05/02/19 10:00 05/03/19 09:56 Protonix PO 40 mg QDAY ASHLEY Administration Sodium Chloride 10 ml 05/02/19 10:00 05/03/19 23:32 Sodium Chloride Flush Syringe 10 Ml IV 10 ml BID ASHLEY Administration Sodium Chloride 10 ml 05/01/19 22:25 05/02/19 03:11 Sodium Chloride Flush Syringe 10 Ml IV 10 ml PRN PRN Administration LINE FLUSH
--- NOTE | 2019-05-04 12:49 | Ultrasound Report ---
RENAL ULTRASOUND HISTORY: retention COMPARISON: 05/01/2019 CT TECHNIQUE: Multiple real-time ultrasonographic grayscale images were obtained of the kidneys and urin guera bladder. FINDINGS: Right kidney: No significant abnormality. No hydronephrosis. Kidney measures 10.7 cm. Left kidney: An exophytic upper pole cyst measures 5.1 x 3.1 x 4.0 cm. No hydronephrosis. Kidney kevin ures 11.5 cm. Urinary bladder: Not imaged and this is probably due to body habitus. Additional findings: None. IMPRESSION: 1. No hydronephrosis. 2. A benign 5 cm left upper pole renal cyst. 3. Normal right kidney. Signer Name: Hector Hooper MD Signed: 05/04/2019 12:44 PM Workstation Name: [id number]
--- NOTE | 2019-05-04 13:33 | Discharge Summary ---
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 * CT abdomen; Negative for obstruction, inflammation or hemorrhage at the abdomen. 2. Unusual consolidation right base. Recommend follow-up to clearing (spoke with Dr. Ochoa, RLL pna) * CXR: IMPRESSION: 1. Acute process in the left upper lobe consistent with pneumonia. Dishcharge Diagnoses: Sepsis Pneumonia; poa RLL and MAUREEN, Multifocal Aspiration Pneumonia -IV antibiotics - blood cultures pending Acute and chronic hypoxic respiratory failure -Probably secondary to the pneumonia -Patient is on O2 3-5L at home -We will keep O2 saturation greater or equal to 92%. -nebulizer therapy Urinary Retention with a oconnor -renal ultrasound negative Acute Renal failure, vasomotor nephropathy -treat with IVF -renal ultrasound without hydronephrosis Morbid obesity, BMI 73.2 - dietary consult prior to discharge. -Counseling/education regarding weight status -Patient would benefit by bariatric weight reduction program as outpatient CHF, Acute on chronic diastolic heart failure -monitor weight, fluids and daily weight -monitor labs Wound of buttock -Wound care consult placed Type 2 diabetes mellitus -Accu-Cheks ac/hs -Continue home meds once reconcile Seizure disorder -Seizure precautions; continue antiepileptic medications -Patient is chronically on Eliquis as also seen on her EDGER HAND aware. -Aspiration precaution History of DVT Patient is on Eliquis Hypotension, resolved Disposition: [id number]/[place]-06 HOME [facility] Time spent for discharge: 35 minutes Core Measure Documentation - Palliative Care Palliative Care/ Comfort Measures: Not Applicable - Core Measures Any of the following diagnoses?: heart failure - VTE Discharge Requirements Deep Vein Thrombosis/Pulmonary Embolism Present on Admission: No Has pt received <5 days of overlap therapy or INR<2.0: No Anticoagulant overlap therapy prescribed at discharge: No Contraindication No Overlap Therapy order at DC: Not Indicated - Heart Failure Discharge Requirements VENUS/ARB for LVSD if EF <40%: Not Applicable Reason for no VENUS/ARB: Renal impairment Beta reji at discharge: Yes Exam - Physical Exam Narrative exam: Gen: WDWN,morbidly obese BMI 73.2, sleeping with a mayo bear, ?cognitive disorder, NAD, Awake, Alert, Orientated HEENT: NCAT, EOMI, PERRL, OP Clear Neck: supple, no adenopathy, no thyromegaly, no JVD CVS/Heart: RRR, normal S1S2, pulses present bilaterally Chest/Lungs: CTA B, Symmetrical chest expansion, good air entry bilaterally GI/Abdomen: soft, NTND, good bowel sounds, no guarding or rebound /Bladder: no suprapubic tenderness, no CVA or paraspinal tenderness Extermity/Skin: no c/c/e, no obvious rash MSK: FROM x 4 Neuro: CN 2-12 grossly intact, no new focal deficits Psych: calm - Constitutional Vitals: Temp Pulse Resp BP Pulse Ox 98.3 F 84 18 134/64 93 05/04/19 04:12 05/04/19 04:12 05/04/19 06:21 05/04/19 04:12 05/04/19 04:12 Plan Activity: up only with assistance, fall precautions, other (no strenous activity unless cleared by PCP) Diet: low salt, diabetic Special Instructions: record daily BP diary, record blood sugar diary (three times a day), home health RN Follow up with: PRIMARY MD KALI [Primary Care Provider] - 7 Days VIVIANE MORENO MD [Staff Physician] - 7 Days OSVALDO HART MD [Staff Physician] - 7 Days Prescriptions: LORazepam [Ativan] 2 mg PO Q8H PRN #20 tablet PRN Reason: Anxiety levoFLOXacin [Levaquin TAB] 500 mg PO QDAY #3 tablet
[2019-05-04] MEDS: METOPROLOL TARTRATE 25 MG TAB PO SCH (14:43)
[2019-05-04] MEDS: PANTOPRAZOLE 40 MG TAB PO SCH (14:45)
[2019-05-04] MEDS: APIXABAN 5 MG TAB PO SCH (14:45)
[2019-05-04] MEDS: CHOLESTYRAMINE (WITH SUGAR) 4 GM PACKET PO SCH (14:49)
[2019-05-04 18:59] VITALS: BP 150/76
== END 2019-05-04 19:30 | disposition home health service (06) | DRG 871 ==
LOC: ED 17:37 → 3A 21:35
PROVIDERS: ADMIT Internal Medicine Geriatric Medicine; ATTEND Internal Medicine
DX: A41.9 Sepsis, unspecified organism (principal); J96.21 Acute and chronic respiratory failure with hypoxia; N17.0 Acute kidney failure with tubular necrosis; I50.33 Acute on chronic diastolic (congestive) heart failure; J69.0 Pneumonitis due to inhalation of food and vomit; I63.9 Cerebral infarction, unspecified; Z68.45 Body mass index [BMI] 70 or greater, adult; E66.01 Morbid (severe) obesity due to excess calories; R33.9 Retention of urine, unspecified; I95.9 Hypotension, unspecified; G40.909 Epilepsy, unspecified, not intractable, without status epilepticus; J44.9 Chronic obstructive pulmonary disease, unspecified; E11.9 Type 2 diabetes mellitus without complications; I25.10 Atherosclerotic heart disease of native coronary artery without angina pectoris; F31.9 Bipolar disorder, unspecified; I11.0 Hypertensive heart disease with heart failure; G89.29 Other chronic pain; J45.909 Unspecified asthma, uncomplicated; M54.9 Dorsalgia, unspecified; Z71.3 Dietary counseling and surveillance; Z99.81 Dependence on supplemental oxygen; Z86.718 Personal history of other venous thrombosis and embolism; Z88.0 Allergy status to penicillin; Z88.8 Allergy status to other drugs, medicaments and biological substances; Z91.018 Allergy to other foods; Z88.1 Allergy status to other antibiotic agents; Z88.9 Allergy status to unspecified drugs, medicaments and biological substances; Z88.2 Allergy status to sulfonamides; Z88.6 Allergy status to analgesic agent; Z79.899 Other long term (current) drug therapy; Z79.01 Long term (current) use of anticoagulants; Z90.89 Acquired absence of other organs
CPT/HCPCS: 36415; 51702; 70450; 71045; 74176; 76770; 80048; 80053; 80320; 81001; 82140; 82550; 83735; 83880; 84443; 84484; 85025; 85027; 85610; 87040; 87116; 93005; 93010; 94760; 96365; 96367; G0378; G0480; J0456; J0696; J2405; J7030; J7050